=== PATIENT | male | born 1940 | race Caucasian/White ===

== ENCOUNTER → 2018-04-02 07:27 | Outpatient (CLI) | payer MEDICARE, SELFPAY ==
[2018-04-02 09:35] LABS: Alanine Aminotransferase 37 U/L (12-78); Albumin Level 3.8 gm/dL (3.4-5.0); Albumin/Globulin Ratio 1.2 (1.1-1.8); Alkaline Phosphatase 82 U/L (46-116); Anion Gap 14.7 mEq/L (5-15); Aspartate Amino Transferase 24 U/L (15-37); Bilirubin,Total 0.4 mg/dL (0.2-1.0); Blood Urea Nitrogen 16 mg/dL (7-18); Calcium 9.2 mg/dL (8.5-10.1); Carbon Dioxide 26 mmol/L (21.0-32.0); Chloride 105 mmol/L (98-107); Chol/HDL Ratio 3.5 (1-3.5); Cholesterol 140 mg/dL (140-200); Creatinine,Serum 0.76 mg/dL (0.70-1.30); Estimated Glomerular Filt Rate 99 ml/min (>60); GFR (African American) 120 ML/MIN (>60); Globulin 3.3 gm/dl (1.3-3.2); Glucose 177 mg/dL (74-106); HDL Cholesterol 40 mg/dL (27-67); LDL Cholesterol 82 mg/dL (0-130); Potassium 4.7 mmoL/L (3.5-5.1); Prostate Specific Ag Screen 3.7 ng/mL (0.0-4.0); Sodium 141 mmol/L (136-145); Total Protein,Serum 7.1 gm/dL (6.4-8.2); Triglycerides 91 mg/dL (30-200); VLDL Cholesterol 18 mg/dL (0-40)
== END ==
PROVIDERS: Visit Provider Family Medicine
DX: E11.9 Type 2 diabetes mellitus without complications (principal); I10 Essential (primary) hypertension; Z12.5 Encounter for screening for malignant neoplasm of prostate; E78.5 Hyperlipidemia, unspecified
CPT/HCPCS: 36415; 80053; 80061; 83036; G0103

== ENCOUNTER → 2018-04-10 10:59 | Outpatient (CLI) | payer MEDICARE, SELFPAY ==
--- NOTE | 2018-04-10 11:04 | US_ITS ---
US Arterial Ankle Brachial Ind INDICATION for study: Claudication, hypertension, previous smoker ORDERING PHYSICIAN: Jensen Yates MD PATIENT AGE: 78 years TECHNIQUE: Segmental pressures obtained of both right and left leg. These are compared to brachial blood pressure to yield index at each level sampled including summary CORNELIUS. The data sheets from the procedure are available in PACS FINDINGS Rest study only performed today No prior studies available for comparison. Blood pressures reported are in millimeters mercury. RIGHT LEG CORNELIUS = .7. RIGHT LEG TBI=.4 Brachial BP: 153 Thigh BP: 137 Calf BP: 138 Ankle PT: 106 Ankle DP : 115 Digit =64 LEFT LEG CORNELIUS = .2 LEFT LEG TBI= 0.2 Brachial BPD: 153 Thigh BP: 78 Calf BP: 48 Ankle PT:30 Ankle DP: 45 Digit = 30 Pulses and waveforms: Diminished pulses and waveforms IMPRESSION: 1. Low right CORNELIUS consistent with [id number] atherosclerotic change. 2. Low left CORNELIUS indicating severe atherosclerotic change on the left. 3. Low TBI as on both sides indicating small vessel disease
== END ==
PROVIDERS: Family Provider Family Medicine; PCP Family Medicine; Visit Provider Family Medicine
DX: I73.9 Peripheral vascular disease, unspecified (principal)
CPT/HCPCS: 93922

== ENCOUNTER → 2018-10-26 08:00 | Outpatient (CLI) | payer MEDICARE, SELFPAY ==
[2018-10-26 08:53] LABS: Hemoglobin A1C 8.2 % (0.0-7.0)
[2018-10-26 09:34] LABS: Alanine Aminotransferase 32 U/L (12-78); Albumin Level 3.7 gm/dL (3.4-5.0); Albumin/Globulin Ratio 1.1 (1.1-1.8); Alkaline Phosphatase 82 U/L (46-116); Anion Gap 14.5 mEq/L (5-15); Aspartate Amino Transferase 14 U/L (15-37); Bilirubin,Total 0.3 mg/dL (0.2-1.0); Blood Urea Nitrogen 13 mg/dL (7-18); Calcium 9.2 mg/dL (8.5-10.1); Carbon Dioxide 27 mmol/L (21.0-32.0); Chloride 104 mmol/L (98-107); Chol/HDL Ratio 3.1 (1-3.5); Cholesterol 142 mg/dL (140-200); Creatinine,Serum 0.82 mg/dL (0.70-1.30); Estimated Glomerular Filt Rate 91 ml/min (>60); GFR (African American) 110 ML/MIN (>60); Globulin 3.5 gm/dl (1.3-3.2); Glucose 113 mg/dL (74-106); HDL Cholesterol 46 mg/dL (27-67); LDL Cholesterol 79 mg/dL (0-130); Potassium 4.5 mmoL/L (3.5-5.1); Sodium 141 mmol/L (136-145); Total Protein,Serum 7.2 gm/dL (6.4-8.2); Triglycerides 86 mg/dL (30-200); VLDL Cholesterol 17 mg/dL (0-40)
== END ==
PROVIDERS: Visit Provider Family Medicine
DX: E78.5 Hyperlipidemia, unspecified (principal); E11.9 Type 2 diabetes mellitus without complications; I10 Essential (primary) hypertension; Z79.4 Long term (current) use of insulin; Z79.84 Long term (current) use of oral hypoglycemic drugs
CPT/HCPCS: 36415; 80053; 80061; 83036

== ENCOUNTER → 2019-03-05 07:32 | Outpatient (CLI) | payer MEDICARE, SELFPAY ==
[2019-03-05 08:44] LABS: Alanine Aminotransferase 27 U/L (12-78); Albumin Level 3.7 gm/dL (3.4-5.0); Albumin/Globulin Ratio 1.1 (1.1-1.8); Alkaline Phosphatase 85 U/L (46-116); Anion Gap 13.9 mEq/L (5-15); Aspartate Amino Transferase 19 U/L (15-37); Bilirubin,Total 0.4 mg/dL (0.2-1.0); Blood Urea Nitrogen 14 mg/dL (7-18); Calcium 9.6 mg/dL (8.5-10.1); Carbon Dioxide 29 mmol/L (21.0-32.0); Chloride 105 mmol/L (98-107); Chol/HDL Ratio 3.5 (1-3.5); Cholesterol 135 mg/dL (140-200); Creatinine,Serum 0.91 mg/dL (0.70-1.30); Estimated Glomerular Filt Rate 81 ml/min (>60); GFR (African American) 97 ML/MIN (>60); Globulin 3.3 gm/dl (1.3-3.2); Glucose 87 mg/dL (74-106); HDL Cholesterol 39 mg/dL (27-67); LDL Cholesterol 80 mg/dL (0-130); Potassium 4.9 mmoL/L (3.5-5.1); Sodium 143 mmol/L (136-145); Triglycerides 78 mg/dL (30-200); VLDL Cholesterol 16 mg/dL (0-40)
[2019-03-05 09:27] LABS: Hemoglobin A1C 8.4 % (0.0-7.0)
== END ==
PROVIDERS: Visit Provider Family Medicine
DX: E11.9 Type 2 diabetes mellitus without complications (principal); E78.5 Hyperlipidemia, unspecified; Z79.84 Long term (current) use of oral hypoglycemic drugs; Z79.4 Long term (current) use of insulin; I10 Essential (primary) hypertension
CPT/HCPCS: 36415; 80053; 80061; 83036

== ENCOUNTER → 2019-09-12 07:16 | Outpatient (CLI) | payer MEDICARE, SELFPAY ==
[2019-09-12 08:02] LABS: Hemoglobin A1C 7.6 % (0.0-7.0)
[2019-09-12 09:49] LABS: Alanine Aminotransferase 25 U/L (12-78); Albumin Level 3.5 gm/dL (3.4-5.0); Albumin/Globulin Ratio 1.1 (1.1-1.8); Alkaline Phosphatase 83 U/L (46-116); Anion Gap 13.3 mEq/L (5-15); Aspartate Amino Transferase 16 U/L (15-37); Bilirubin,Total 0.2 mg/dL (0.2-1.0); Blood Urea Nitrogen 17 mg/dL (7-18); Carbon Dioxide 30 mmol/L (21.0-32.0); Chloride 103 mmol/L (98-107); Chol/HDL Ratio 3.2 (1-3.5); Cholesterol 130 mg/dL (140-200); Creatinine,Serum 0.85 mg/dL (0.70-1.30); Estimated Glomerular Filt Rate 87 ml/min (>60); GFR (African American) 105 ML/MIN (>60); Globulin 3.1 gm/dl (1.3-3.2); Glucose 112 mg/dL (74-106); HDL Cholesterol 41 mg/dL (27-67); LDL Cholesterol 71 mg/dL (0-130); Potassium 4.3 mmoL/L (3.5-5.1); Sodium 142 mmol/L (136-145); Total Protein,Serum 6.6 gm/dL (6.4-8.2); Triglycerides 92 mg/dL (30-200); VLDL Cholesterol 18 mg/dL (0-40)
[2019-09-14 07:21] LABS: Creatinine, Urine 81.8 mg/dL (Not Estab.)
[2019-09-14 20:03] LABS: Microalbumin, Urine 42.8 ug/mL (Not Estab.)
== END ==
PROVIDERS: Visit Provider Family Medicine
DX: E11.9 Type 2 diabetes mellitus without complications (principal); E78.5 Hyperlipidemia, unspecified; I10 Essential (primary) hypertension; Z79.4 Long term (current) use of insulin; Z79.84 Long term (current) use of oral hypoglycemic drugs
CPT/HCPCS: 36415; 80053; 80061; 82043; 82570; 83036

== ENCOUNTER → 2020-03-13 06:59 | Outpatient (CLI) | payer MEDICARE, SELFPAY ==
[2020-03-13 10:49] LABS: Hemoglobin A1C 6.9 % (4.0-6.0)
[2020-03-13 12:18] LABS: Chloride 102 mmol/L (98-107); Potassium 4.8 mmoL/L (3.5-5.1); Sodium 139 mmol/L (136-145)
[2020-03-13 12:20] LABS: Alanine Aminotransferase 17 U/L (12-78); Alkaline Phosphatase 76 U/L (38-126); Aspartate Amino Transferase 26 U/L (17-59); Bilirubin,Total 0.2 mg/dl (0.2-1.3); Blood Urea Nitrogen 20 mg/dl (9-20); Estimated Glomerular Filt Rate 93 ml/min (>60); GFR (African American) 113 ML/MIN (>60)
[2020-03-13 12:21] LABS: Albumin/Globulin Ratio 1.6 (1.1-1.8); Anion Gap 13.8 mEq/L (5-15); Carbon Dioxide 28 mmol/L (22.0-30.0); Chol/HDL Ratio 3.3 (1-3.5); Cholesterol 112 mg/dl (140-200); Globulin 2.5 g/dL (1.3-3.2); HDL Cholesterol 34 mg/dl (40-60); Total Protein,Serum 6.5 g/dl (6.3-8.2); Triglycerides 92 mg/dl (30-150); VLDL Cholesterol 18 mg/dL (0-40)
[2020-03-13 12:27] LABS: Calcium 9.4 mg/dl (8.4-10.2); Glucose 102 mg/dl (74-100)
[2020-03-13 12:32] LABS: Direct LDL Cholesterol 77.59 mg/dL (100-129)
== END ==
PROVIDERS: Visit Provider Family Medicine
DX: E78.5 Hyperlipidemia, unspecified (principal); I10 Essential (primary) hypertension; E11.9 Type 2 diabetes mellitus without complications; Z79.84 Long term (current) use of oral hypoglycemic drugs
CPT/HCPCS: 36415; 80053; 80061; 83036

== ENCOUNTER 2020-06-08 12:02 | Inpatient (IN) | payer MEDICARE, SELFPAY ==
[2020-06-08] VITALS (12 sets, daily range): BP systolic 105–150; BP diastolic 57–81; PULSE 78–134; RESP 18–26; TEMP 36–36.6; O2SAT 96–99; BMI 31.8
--- NOTE | 2020-06-08 12:14 | ECG_ITS ---
APPROVED REPORT Exam: Resting ECG HR:115 bpm ECG Measurements Heart Rate 115 AXES QRSd 100 QRS 77 QT 310 T -72 QTc 428 <Conclusion> Atrial Fibrillation with PVC'S vs Aberrant Conduction ST-T Wave Changes-Consider Ischemia and/or Digitalis effect Abnormal ECG Electronically signed by : Raymond Fuentes, 06/08/2020 15:10:15
--- NOTE | 2020-06-08 12:21 | XR_ITS ---
PROCEDURE: XR CHEST PORTABLE CLINICAL HISTORY: sob Shortness of breath chest pain COMPARISON: No exams were available for comparison FINDINGS: There is mild cardiomegaly without failure. There has been a prior CABG. There is opacification in the left lung base consistent with pneumonia with small left effusion. Trace effusion also noted on right. No acute bony abnormalities. IMPRESSION: Left lower lobe infiltrate. Small bilateral effusions Dictated by: Justin Weldon MD 06/08/2020 14:05 Electronically signed by Justin Welodn MD in [place] 06/08/2020 14:05
--- NOTE | 2020-06-08 12:40 | HMH.EDGENADL ---
ED Disposition Clinical Impression: New onset of congestive heart failure Left lower lobe pneumonia Qualifiers: Pneumonia type: due to unspecified organism Qualified Code(s): J18.9 - Pneumonia, unspecified organism Disposition: Admitted As Inpatient Condition on Discharge: Good Referrals: Jensen Yates MD [Primary Care Provider] - Time of Disposition: 16:46 - Critical Care Critical Care Time: No Attestation: On 06/08/20, the high probability of a clinically significant, sudden or life threatening deterioration of the following system(s) required my full and direct attention, intervention and personal management. The time I documented below is in addition to time spent performing reported procedures but includes the following listed in this critical care notation. Medical Decision Making - Medical Records MR Comment: 80-year-old male with extensive cardiac history including bypass and stents presents the emergency department with gradually increasing shortness of breath and bilateral lower extremity edema over the last few weeks. He arrives to the ED hemodynamically stable, with reassuring vital signs, and looks well on exam. He is tachycardic during my evaluation to 110. He denies any pain including chest or back pain at this time. ACS was considered as well as pneumonia, however his symptoms do not fit this picture. No clinical concern for pulmonary embolus at this time. No history of COPD or heart failure, however with his bilateral lower extremity edema and slowly increasing shortness of breath, heart failure is considered. Will get labs including troponin and BNP, chest x-ray, EKG and reassess. He is nontoxic, not septic at this time. Reassessment, patient remained stable and oxygen saturation 98% on room air. His history and physical along with enlarged cardiac silhouette and BNP of over 14,000 support diagnosis of new onset heart failure. He also has a left lower lobe pneumonia and a leukocytosis of 16, he was given ceftriaxone and azithromycin. No Concern for hospital-acquired pneumonia. His first troponin was elevated, other than T wave inversions, EKG was unremarkable. He was having no chest pain. Second troponin was lower than first and no dynamic changes on repeat EKGs. Do not believe this is ACS. However, he needs further work-up including echo, treatment for heart failure and pneumonia. Spoke to his PCP and he will be admitted for further treatment. Stable admission. - Gallo Inquiry Pt receiving controlled substance: No Vital Signs: 06/08/20 12:04 06/08/20 13:14 06/08/20 13:36 Temperature 97.8 F Temperature Source Oral Pulse Rate [Left Radial] 130 H 110 H 105 H Respiratory Rate 26 H Blood Pressure [Right Arm] 150/77 H 109/67 L 108/60 L Blood Pressure Mean [Right Arm] 101 81 76 Blood Pressure Source [Right Arm] Automatic Cuff Automatic Cuff Blood Pressure Position [Right Arm] Sitting Sitting Sitting 02 Sat by Pulse Oximetry 96 97 98 Oxygen Delivery Method Room Air Room Air Room Air 06/08/20 14:41 06/08/20 15:30 06/08/20 16:08 Temperature Temperature Source Pulse Rate [Left Radial] 88 97 H 98 H Respiratory Rate Blood Pressure [Right Arm] 129/81 105/72 L 120/74 Blood Pressure Mean [Right Arm] 97 83 89 Blood Pressure Source [Right Arm] Automatic Cuff Automatic Cuff Automatic Cuff Blood Pressure Position [Right Arm] Sitting Sitting Sitting 02 Sat by Pulse Oximetry 97 98 99 Oxygen Delivery Method Room Air Room Air Room Air - Lab Data Lab Results 06/08/20 12:24: WBC 16.0 H, RBC 4.28 L, Hgb 11.5 L, Hct 37.8 L, MCV 88.4, MCH 27.0, MCHC 30.5 L, RDW 15.4, Plt Count 517 H, MPV 8.0, Neut % (Auto) 85.1 H, Lymph % (Auto) 10.1, Wilcox % (Auto) 3.6, Eos % (Auto) 0.8, Baso % (Auto) 0.4, Neut # (Auto) 13.6 H, Lymph # (Auto) 1.6, Wilcox # (Auto) 0.6, Eos # (Auto) 0.1, Baso # (Auto) 0.1, Total Counted 100, Neutrophils % (Manual) 81 H, Band Neutrophils % 5.0, Lymphocytes % (Manual) 1
[2020-06-08 12:43] LABS: Basophils # 0.1 K/mm3 (0-0.2); Basophils % 0.4 % (0.1-2.0); Eosinophils # 0.1 K/mm3 (0.0-0.4); Eosinophils % 0.8 % (0.1-12.0); Hematocrit 37.8 % (42.0-52.0); Hemoglobin 11.5 g/dL (14.1-18.0); Lymphocytes # 1.6 K/mm3 (0.7-4.5); Lymphocytes % 10.1 % (10-50); Mean Corpuscular HGB Conc 30.5 g/dL (31.8-35.4); Mean Corpuscular Volume 88.4 fl (80-94); Monocytes # 0.6 K/mm3 (0.1-1.0); Monocytes % 3.6 % (1.7-9.3); Neutrophils # 13.6 K/mm3 (1.8-7.8); Neutrophils % 85.1 % (37.0-80.0); Platelet Count 517 K/mm3 (142-424); Red Blood Count 4.28 M/mm3 (4.60-6.20); Red Cell Distribution Width 15.4 % (11.5-17.5)
[2020-06-08 12:45] LABS: MANUAL DIFFERENTIAL MANUAL DIFFERENTIAL (MANUAL DIFF)
[2020-06-08 12:49] LABS: Chloride 100 mmol/L (98-107); Sodium 135 mmol/L (136-145)
[2020-06-08 12:51] LABS: Alanine Aminotransferase 61 U/L (12-78); Aspartate Amino Transferase 41 U/L (17-59); Bilirubin,Unconjugated 0.3 mg/dL (0.0-1.1); Blood Urea Nitrogen 29 mg/dl (9-20); Creatinine Clearance Estimated 84 mL/min (50-200); Estimated Glomerular Filt Rate 72 ml/min (>60); GFR (African American) 87 ML/MIN (>60)
[2020-06-08 12:52] LABS: Albumin Level 3.9 g/dl (3.5-5.0); Alkaline Phosphatase 150 U/L (38-126); Bilirubin,Direct 0.2 mg/dl (0.0-0.4); Bilirubin,Indirect 0.3 mg/dL (0.0-0.9); Bilirubin,Total 0.5 mg/dl (0.2-1.3); Carbon Dioxide 24 mmol/L (22.0-30.0); Total Protein,Serum 7.1 g/dl (6.3-8.2)
[2020-06-08 12:53] LABS: Prothrombin Time 13.2 seconds (9.4-11.8)
[2020-06-08 12:58] LABS: Calcium 9.3 mg/dl (8.4-10.2)
[2020-06-08 13:01] LABS: Hypochromasia 2+; Lymphocytes % 10 % (10-50); Monocytes % 4 % (2-9); NT Pro Brain Natriuretic Pep. 14300 pg/mL (0-450); Neutrophils % 81 % (42-76); Platelet Estimate Normal; Total Cells Counted 100
[2020-06-08 13:04] LABS: Glucose 138 mg/dl (74-100)
[2020-06-08 13:05] LABS: RBC Morphology Normal
[2020-06-08 13:06] LABS: Troponin I 1.88 ng/ml (0.00-0.034)
--- NOTE | 2020-06-08 13:15 | PC.NURSE ---
rad at for portable cxr
[2020-06-08 13:48] LABS: POC Glucose,Bedside 112 (70-110)
--- NOTE | 2020-06-08 13:55 | PC.NURSE ---
pt with edema noted feet ankles legs up to abd
[2020-06-08 16:14] LABS: Troponin I 1.58 ng/ml (0.00-0.034)
--- NOTE | 2020-06-08 16:30 | PC.NURSE ---
Calling Dr Yates at this time.
--- NOTE | 2020-06-08 17:53 | PC.NURSE ---
Duy knows of consult
--- NOTE | 2020-06-08 18:25 | HMH.ACPN2 ---
Internal Medicine - PN: Subj *Date: 06/08/20 *Time: 18:25 Interval history: BRIEF ADMIT NOTE: Mr. Trevino is an 80-year-old white male with a history of hypertension, diabetes mellitus mellitus, hyperlipidemia, and peripheral vascular disease who presented to the emergency room today with a 2 to 3-week history of progressively increasing shortness of breath, paroxysmal nocturnal dyspnea, increased swelling in his feet and legs, weight gain and dry cough with no fever. He had a particularly bad night last night where he was unable to sleep and had some episodes of confusion. No complaints of chest pain. I spoke to him this morning via telehealth encounter and based on his symptoms advised he present to the emergency room. He was evaluated in the ER and found to have a left lower lobe infiltrate with a white count of 16,000. He also had mild cardiomegaly on his chest x-ray but no overt heart failure however his BNP was 14,000. His initial troponin was elevated at 1.8 but follow-up decreased to 1.5. He has no history of congestive heart failure. Exam Vital signs and Labs for Last 24 Hours: Temp Pulse Resp BP Pulse Ox 98 F 78 18 112/74 98 06/08/20 17:29 06/08/20 17:29 06/08/20 17:29 06/08/20 17:29 06/08/20 16:56 Laboratory Results - last 24 hr 06/08/20 12:24: WBC 16.0 H, RBC 4.28 L, Hgb 11.5 L, Hct 37.8 L, MCV 88.4, MCH 27.0, MCHC 30.5 L, RDW 15.4, Plt Count 517 H, MPV 8.0, Neut % (Auto) 85.1 H, Lymph % (Auto) 10.1, Wilkin % (Auto) 3.6, Eos % (Auto) 0.8, Baso % (Auto) 0.4, Neut # (Auto) 13.6 H, Lymph # (Auto) 1.6, Wilkin # (Auto) 0.6, Eos # (Auto) 0.1, Baso # (Auto) 0.1, Total Counted 100, Neutrophils % (Manual) 81 H, Band Neutrophils % 5.0, Lymphocytes % (Manual) 10, Monocytes % (Manual) 4, Platelet Estimate Normal, RBC Morphology Normal, Hypochromasia 2+ 06/08/20 12:24: Sodium 135 L, Potassium 5.0, Chloride 100, Carbon Dioxide 24, Anion Gap 16.0 H, BUN 29 H, Creatinine 1.00, Estimated Creat Clear 84, Estimated GFR 72, Est GFR ( Amer) 87, Glucose 138 H, Calcium 9.3, Total Bilirubin 0.5, Direct Bilirubin 0.2, Conjugated Bilirubin 0.0, Indirect Bilirubin 0.3, Unconjugated Bilirubin 0.3, AST 41, ALT 61, Alkaline Phosphatase 150 H, Troponin I 1.88 H, Total Protein 7.1, Albumin 3.9 06/08/20 12:24: NT-Pro-B Natriuret Pep 56786 H 06/08/20 12:24: PT 13.2 H, INR 1.30 H 06/08/20 12:24: Lactate 2.0 06/08/20 13:40: POC Glucose 112 H 06/08/20 15:06: Troponin I 1.58 H I & O for Last 24 hours: Intake & Output 06/06/20 06/07/20 06/08/20 06/09/20 11:59 11:59 11:59 11:59 Weight 221 lb 9 oz Narrative: At the time of my exam after arrival to the floor, he is feeling a little better. He is less short of breath. He is alert and oriented. Color is good. Chest reveals diminished breath sounds in the left base. No wheezes. Heart is regular with no ectopy. Abdomen is soft and nondistended with no tenderness. Extremities show 2+ pretibial edema to the mid calves bilaterally. Assessment and Plan (1) Left lower lobe pneumonia Current visit: Yes Status: Acute Qualifiers: Pneumonia type: due to unspecified organism Qualified Code(s): J18.9 - Pneumonia, unspecified organism Category: Medical Code(s): J18.9 - Pneumonia, unspecified organism (2) New onset of congestive heart failure Current visit: Yes Status: Acute Category: Medical Code(s): I50.9 - Heart failure, unspecified (3) HTN (hypertension) Current visit: No Status: Chronic Qualifiers: Hypertension type: essential hypertension Qualified Code(s): I10 - Essential (primary) hypertension Category: Medical Code(s): I10 - Essential (primary) hypertension (4) PAD (peripheral artery disease) Current visit: No Status: Chronic Category: Medical Code(s): I73.9 - Peripheral vascular disease, unspecified (5) Type 2 diabetes mellitus Current visit: Yes Status: Acute Category: Medical Code(s): E11.9 - Type 2 diabetes
--- NOTE | 2020-06-08 19:21 | PC.NURSE ---
report given to judy
[2020-06-08 21:25] LABS: POC Glucose,Bedside 186 (70-110)
[2020-06-09] VITALS (11 sets, daily range): BP systolic 97–136; BP diastolic 62–73; PULSE 66–140; RESP 17–20; TEMP 36.4–36.8; O2SAT 96–97; BMI 31.4
--- NOTE | 2020-06-09 00:24 | PC.NURSE ---
He reports a non-productive cough. He is aware of the need for a sputum specimen. His is at the bedside. He continues on RA. He turns and repositions himself. Ambulates independently. He requests to take a bath tomorrow day and refused one tonight.
--- NOTE | 2020-06-09 06:12 | PC.NURSE ---
Confusion noted. He is stating he would shot this grant writer and asked wouldn't you shot yourself.
--- NOTE | 2020-06-09 06:46 | PC.NURSE ---
Contacted lab about results on stat glucose and lab stated it had not been drawn yet. Pt's stated lab came into the room and he told her that his last name was Johnnie and that lab had left the room. Echo is being done at this time. POC glucose checked and was 69.
[2020-06-09 06:57] LABS: POC Glucose,Bedside 69 (70-110)
[2020-06-09 07:22] LABS: Chloride 103 mmol/L (98-107); Potassium 4.5 mmoL/L (3.5-5.1); Sodium 138 mmol/L (136-145)
[2020-06-09 07:25] LABS: Anion Gap 14.5 mEq/L (5-15); Blood Urea Nitrogen 31 mg/dl (9-20); Calcium 8.6 mg/dl (8.4-10.2); Carbon Dioxide 25 mmol/L (22.0-30.0); Creatine Kinase 168 U/L (55-170); Creatinine Clearance Estimated 83 mL/min (50-200); Estimated Glomerular Filt Rate 81 ml/min (>60); GFR (African American) 98 ML/MIN (>60); Glucose 74 mg/dl (74-100)
[2020-06-09 07:35] LABS: CKMB Relative Index 2.1 U/L (0-4.0); Creatine Kinase MB 3.5 ng/ml (0.0-2.03)
[2020-06-09 07:40] LABS: Basophils % 0.4 % (0.1-2.0); Eosinophils # 0.1 K/mm3 (0.0-0.4); Hematocrit 35.4 % (42.0-52.0); Hemoglobin 11.2 g/dL (14.1-18.0); Lymphocytes # 1.3 K/mm3 (0.7-4.5); Mean Corpuscular HGB Conc 31.6 g/dL (31.8-35.4); Mean Corpuscular Volume 85.3 fl (80-94); Mean Platelet Volume 7.4 fl (7.4-10.4); Monocytes # 0.8 K/mm3 (0.1-1.0); Monocytes % 6.8 % (1.7-9.3); Neutrophils # 9.6 K/mm3 (1.8-7.8); Neutrophils % 80.8 % (37.0-80.0); Platelet Count 396 K/mm3 (142-424); Red Blood Count 4.15 M/mm3 (4.60-6.20); Red Cell Distribution Width 15.5 % (11.5-17.5); White Blood Count 11.9 K/mm3 (4.8-10.8)
[2020-06-09 07:47] LABS: Troponin I 1.64 ng/ml (0.00-0.034)
--- NOTE | 2020-06-09 07:54 | HMH.PHAVTE ---
[facility] Pharmacy VTE Monitoring - Patient Demographics Admission date: 06/08/20 Report Date: 06/09/20 Time: 07:54 Allergies/Adverse Reactions: Patient Allergies pregabalin [From Lyrica] Allergy (Mild, Verified 06/05/18 13:37) shellfish derived Allergy (Mild, Verified 06/05/18 13:37) Height: 1.78 m Weight: 99.654 kg Patient Problems: Current Active Problems New onset of congestive heart failure (Acute) Left lower lobe pneumonia (Acute) Type 2 diabetes mellitus (Acute) Hyperlipidemia (Acute) - VTE Risk Labs: VTE Related Lab Results Hgb 11.2 g/dL (14.1-18.0) L 06/09/20 07:10 Hct 35.4 % (42.0-52.0) L 06/09/20 07:10 Plt Count 396 K/mm3 (142-424) 06/09/20 07:10 PT 13.2 seconds (9.4-11.8) H 06/08/20 12:24 INR 1.30 (0.9-1.1) H 06/08/20 12:24 BUN 31 mg/dl (9-20) H 06/09/20 07:10 Creatinine 0.90 mg/dl (0.66-1.25) 06/09/20 07:10 Estimated Creat Clear 83 mL/min (50-200) 06/09/20 07:10 VTE Score: 2 Clinical Trial Participant: No - Prophylaxis VTE Prophylaxis Ordered?: Yes Types of VTE Prophylaxis: TEDS Knee High
--- NOTE | 2020-06-09 08:33 | HMH.CNCARD ---
History of Present Illness Consult date: 06/09/20 Requesting physician: Jesnen Yates Consult reason: congestive heart failure Chief complaint: SOA Additional Medical History:: 1. CAD with remote multiple MT's, 1993 A. MT with coronary stenting, 1993 B. 2 vessel CABG, approximately 1993, [place], [place] after re-occlusion of coronary stented artery 2. DM, insulin requiring, treated for 25 yrs 3. Remote tobacco use, stopped 1993, 20-30 pack yr history 4. Hyperlipidemia 5. Hypertension 6. Suspected cancer located on the back right scapular area 7. History of GERD 8. PAD A. History of BMS to left popliteal artery, 03/2018 due to limb threatening ischemia History of present illness: 80-year-old white male with history of bypass surgery in 1993 presented to the emergency department at the insistence of his primary care physician for evaluation of increasing shortness of breath over the last 3 weeks along with lower extremity edema and increasing abdominal size. Patient denies any chest pain but states he has been unable to sleep or rest due to the symptoms. Initial troponin noted to be elevated at 1.88 with a BNP of greater than 14,000 and patient was admitted for congestive heart failure with non-ST elevation MT. Patient was started on IV diuretics and does relate some increased urination overnight with a 2 pound weight loss. Patient did not save a lot of his urine so adequate I and O's not recorded. He states he does feel a little bit better but is still unable to lie flat without shortness of breath and a feeling of uneasiness. He denies any chest pain, pressure or tightness. EKG reveals mild tachycardia with a rhythm that appears to be atrial flutter with 3-1 conduction vs a. fibrillation. Preliminary echo this AM shows LVEF of 20-25%. [facility] History Medical History: Reports:: Atrial Fibrillation, Congestive Heart Failure, Coronary Artery Disease, Diabetes Mellitus Type 2, Gastroesophageal Reflux Disease(GERD), Hyperlipidemia, Hypertension, Peripheral Artery Disease Denies:: Cancer, Diabetes Mellitus Type 1, MRSA *Have you ever received a pneumonia vaccine?: Yes *Have you received a flu vaccine this season?: Yes Other Medical History: Reports: Arthritis Other Surgeries: Yes: CABG (26 years ago), Colonoscopy Amputation: No Fractures: No - *Social History Last grade of school completed: 5th or 6th Smoking Status: Former smoker Tobacco Type: cigarettes Alcohol Intake: never Alcohol Intake Frequency:: other Substance Use Type: denies use *Occupational Status:: retired Housing: house Household Members: spouse *Travel in the last 8 weeks: None Family Hx:: Coronary Artery Disease, Heart Attack Meds Home Medications Medication Instructions Recorded Confirmed Type aspirin 81 mg tablet,delayed 81 mg PO DAILY tab 04/24/18 06/08/20 History release atorvastatin 40 mg tablet 40 mg PO DAILY tab 04/24/18 06/08/20 History ferrous sulfate 325 mg (65 mg 325 mg PO DAILY tab 04/24/18 06/08/20 History iron) tablet insulin glargine 100 unit/mL (3 32 unit SUB-Q BID ml 04/24/18 06/08/20 History mL) subcutaneous pen lisinopril 20 mg tablet 20 mg PO DAILY tab 04/24/18 06/08/20 History metformin 1,000 mg tablet 1,000 mg PO BID 04/24/18 06/08/20 History loratadine 10 mg tablet 10 mg PO DAILY tab 06/05/18 06/08/20 History Clopidogrel Bisulfate [Plavix 75mg 75 mg PO DAILY 06/08/20 06/08/20 History Tab] Glimepiride 2 mg PO DAILY 06/09/20 06/09/20 History Allergies Allergy/AdvReac Type Severity Reaction Status Date / Time pregabalin [From Lyrica] Allergy Mild Verified 06/05/18 13:37 shellfish derived Allergy Mild Verified 06/05/18 13:37 Review of Systems - Review of Systems Review of systems:: pertinent systems reviewed and negative unless documented below - *Cardiovascular Reports shortness of breath, Reports shortness of breath when lying down, Reports foot swelling, Denies chest pain - *Res
--- NOTE | 2020-06-09 09:12 | HMH.HP ---
*Admission Date: 06/08/20 <Pauline Harmon 06/09/20 09:15> *Chief complaint: Shortness of breath and bilateral lower extremity edema <06/09/20 09:15> *History of present illness: Mr. Cassidy is an 80yo gentleman with a history of ASCVD with multiple ME's resulting in CABG and stenting, HLP, T2DM, PAD, , HTN, GERD, and chronic back pain. He reports a 2-3 week history of progressive shortness of breath along with lower extremity edema, increasing abdominal size, and dry cough without fever. He denied any chest pain. He had not been resting well at night due to dyspnea when laying flat. After having a particularly bad night with lack of sleep and some episodes of confusion, he was evaluated via telehealth encounter by Dr. Yates yesterday morning and advised to present to the emergency room for based on his symptoms. Upon arrival to the ED, he was found to have a left lower lobe infiltrate with elevated WBC. He also had mild cardiomegaly on CXR without overt heart failure although his BNP was elevated at 14,000. His initial troponin was also elevated. He was admitted for congestive heart failure and cardiology was consulted. This morning he has had some diuresis but continues to be short of breath when lying flat. <Faustino06/09/20 09:44> [facility] History I have reviewed the patient's past medical history: Yes <06/09/20 09:44> Medical History: Reports:: Atrial Fibrillation, Congestive Heart Failure, Coronary Artery Disease, Diabetes Mellitus Type 2, Gastroesophageal Reflux Disease(GERD), Hyperlipidemia, Hypertension, Myocardial Infarction, Peripheral Artery Disease Denies:: Cancer, Diabetes Mellitus Type 1, MRSA <06/09/20 09:44> *Have you ever received a pneumonia vaccine?: Yes <06/09/20 09:15> *Have you received a flu vaccine this season?: Yes <06/09/20 09:15> Other Medical History: Reports: Arthritis <06/09/20 09:15> Laterality Cases: Bilateral: Cataract <06/09/20 09:44> Other Surgeries: Yes: CABG (26 years ago), Colonoscopy, Other (left leg stent placed by Dr. Joy - 2017) <Pauline Harmon 06/09/20 09:44> Amputation: No <Faustino06/09/20 09:15> Fractures: No <Faustino06/09/20 09:15> - *Social History Last grade of school completed: 5th or 6th <Ronnie Harmon06/09/20 09:15> Smoking Status: Former smoker <Faustino06/09/20 09:15> Tobacco Type: cigarettes <Ronnie Harmon06/09/20 09:15> Alcohol Intake: never <Ronnie Harmon06/09/20 09:15> Alcohol Intake Frequency:: other <Faustino06/09/20 09:15> Substance Use Type: denies use <Faustino,06/09/20 09:15> *Occupational Status:: retired <Faustino06/09/20 09:15> Housing: house <Faustino06/09/20 09:15> Household Members: spouse <Faustino06/09/20 09:15> *Travel in the last 8 weeks: None <Ronnie Harmon06/09/20 09:15> Family Hx:: Cancer, Coronary Artery Disease, Diabetes, Heart Attack <Ronnie Harmon06/09/20 09:44> Review of Systems - Constitutional Reports fatigue, Reports weight gain, Denies fever(s) <Ronnie Harmon06/09/20 09:44> - *Cardiovascular Reports shortness of breath, Reports shortness of breath with activity, Reports generalized swelling, Reports leg swelling, Reports shortness of breath when lying down, Reports shortness of breath causing sudden awakening, Denies chest pain, Denies chest pain at rest, Denies chest pain with activity <Ronnie Harmon06/09/20 09:44> - *Respiratory Reports cough, Reports shortness of breath, Reports shortness of breath with activity <Ronnie Harmon06/09/20 09:44> - *Gastrointestinal Reports bloating, Denies abdominal pain <Ronnie Harmon06/09/20 09:44> - *Genitourinary Denies difficulty urinating <Pauline Harmon 06/09/20 09:44> - Integumentary/Breasts Reports lesions <Pauline Harmon 06/09/20 09:44> Comments: right scapular non-healing ulcer present for a while ; more recent eruption of mid-carol
--- NOTE | 2020-06-09 09:20 | HMH.PHAINT ---
HOME MEDICATION RECONCILIATION COMPLETED USING LIST FROM PHARMACY AND HOME MEDS PROVIDED BY PATIENT.
[2020-06-09 11:59] LABS: POC Glucose,Bedside 42 (70-110)
[2020-06-09 11:59] LABS: POC Glucose,Bedside < 40 (70-110)
--- NOTE | 2020-06-09 15:18 | ECG_ITS ---
APPROVED REPORT Exam: Resting ECG HR:106 bpm ECG Measurements Heart Rate 106 AXES QRSd 94 QRS 64 QT 330 T -78 QTc 438 <Conclusion> Atrial fibrillation Low voltage QRS T wave abnormality, consider inferior/lateral ischemia Abnormal ECG Electronically signed by : Raymond Fuentes, 06/09/2020 15:37:38
--- NOTE | 2020-06-09 18:14 | CA_ITS ---
APPROVED REPORT EXAM: Comprehensive 2D, Doppler, and color-flow Echocardiogram Registration Officer: Mercy Lowe CRT Ht: 5 ft 10 in Wt: 221lbs BSA: 2.18 BP: 112/74 mmHg Indications: Chest Pain, Shortness of Breath, Diabetes, Peripheral Edema, Hyperlipidemia, Hypertension/HDD, PVD, CABG, Stents 2D Dimensions LVOT 1.71 cm (M/F) 1.5-2.5 M-Mode Dimensions RVDd 3.60 cm (0.9-2.6) LVDd 6.82 cm (3.5-5.7) LVDs 5.99 cm (3.5-5.7) IVSd 1.17 cm (0.6-1.1) PWd 1.14 cm (0.6-1.1) EF (Teich) 25.50% FS 12.20% EDV (Teich) 240.80 mL ESV (Teich) 179.30 mL Left Ventricle Left atrium is moderately enlarged, left ventricle is mildly dilated, mild concentric left ventricular hypertrophy, severe reduced left ventricular systolic function, visually estimated ejection fraction approximately 2025%, there is marked hypokinesis involving mid to distal septum, anterior anterior apical wall, there is no left ventricular thrombus seen, Definity contrast was utilized to delineate the endocardial surfaces. Diastolic parameters are inconclusive. Doppler evidence of low cardiac output state as well as left ventricular end-diastolic pressure seen. Right Ventricle Right atrium and right ventricle are mildly enlarged with normal contractility. Aortic Valve Aortic valve is thickened and calcified leaflet chordae display good mobility, there is no aortic stenosis, there is mild aortic insufficiency. Mitral Valve Mitral valve leaflets are minimally thickened, there is no mitral stenosis, there is moderate mitral regurgitation. Tricuspid Valve Tricuspid valve is grossly normal, there is moderate tricuspid regurgitation, calculated right ventricular systolic pressure 60 mmHg. Pulmonic Valve Pulmonic valve is poorly visualized. Great Vessels Aortic root is normal size. Pericardium No significant pericardial effusion noted. Conclusion 1. Biatrial alignment, dilated left ventricle, severe reduced left ventricular systolic function, visually estimated ejection fraction 20-25% as described above, there is no left ventricular thrombus seen. Doppler evidence of raise left ventricular end-diastolic pressure endocardial outputs state seen. 2. Moderate mitral and tricuspid regurgitation, calculated right ventricular systolic pressure 60 mmHg. 3. No significant pericardial effusion noted. Electronically signed by : Fede Nicole, 06/09/2020 19:21:45
[2020-06-09 20:32] LABS: POC Glucose,Bedside 90 (70-110)
[2020-06-10] VITALS (23 sets, daily range): BP systolic 91–142; BP diastolic 59–77; PULSE 66–137; RESP 16–24; TEMP 36.3–36.8; O2SAT 93–100; BMI 31.4
--- NOTE | 2020-06-10 | IR_ITS ---
APPROVED REPORT Patient Location: Inpatient Ground Mixer: MARY Hutson RT (R) PROCEDURES Left heart catheterization Left ventriculogram Selective coronary angiogram Selective engagement of the saphenous vein graft to the right coronary artery Selective engagement of the left internal mammary artery to the LAD INDICATION Acute non-ST elevation myocardial infarction, Coronary artery disease with history of coronary bypass surgery, Left ventricular dysfunction ejection fraction 25% Informed consent was obtained prior to the procedure. COMPLICATIONS none Estimated Blood Loss: less than 10 mls TECHNIQUE One percent lidocaine used to anesthetize the right groin. The right femoral artery was accessed via the Seldinger technique and a 5 Turkish sheath was placed in the right femoral artery. A JL 4, JR4 catheter were used to perform left heart catheterization, left ventriculogram selective coronary angiography as well as selective engagement of the 1 vein graft and the left internal mammary artery. At the end of the procedure the patient was transferred to the postop holding area in stable condition for sheath removal. ANGIOGRAPHIC RESULTS The left main artery Has a distal 20% stenosis The left anterior descending artery Ostially occluded The circumflex artery Nondominant and has an ostial 30% stenosis with a proximal 30 to 40% stenosis and a 2 mm first obtuse marginal artery The right coronary artery Dominant proximally occluded The JERONIMO ventriculogram reveals Severely dilated ventricle with global hypokinesis estimated ejection fraction less than 20% The left ventricular end-diastolic pressure 40 mmHg The left internal mammary artery is widely patent to the LAD The saphenous vein graft is widely patent to the dominant right coronary IMPRESSION Coronary artery disease as described above with adequate surgical revascularization Severe left ventricular dilatation with severe left ventricular dysfunction accompanied by severely elevated LVEDP PLAN 1. Patient requires aggressive diuresis followed by institution of beta blockers and Entresto 2. Patient should be offered a LifeVest prior to discharge home 3. Standard therapy for ischemic heart disease 4. Standard therapy for systolic heart failure 5. In 90 days patient should be reevaluated for AICD Electronically signed by : Dre Joy, 06/10/2020 13:17:01
--- NOTE | 2020-06-10 06:24 | PC.NURSE ---
0558- FSBS: 52 0600- PT. REFUSED ORANGE JUICE, STATES: IT GIVES ME HEARTBURN 0607- PT. EATS PEANUT BUTTER CRACKERS AND CHOCOLATE MILK 0616- FSBS: 56 0620- PT. REFUSES SNACKS. BOTH PT. AND REPORT THAT PT'S FSBS IS USUALLY IN THE 50'S EVERY MORNING. THEY HAVE NOTICED THIS FOR THE PAST SIX MONTHS. PT. IS A&OX4 AND IS ABLE TO CARRY NORMAL CONVERSATION AND ACTIVITY. THIS RN ENCOURAGED PT. TO KEEP EATING AND LEFT PEANUT BUTTER CRACKERS AT BEDSIDE PT. STATED THAT HE WOULD IN A LITTLE BIT . 0645- FSBS: 68 0650- MD SALVADOR NOTIFIED OF ABOVE AND MADE AWARE THAT PT. HAS LEVEMIR, GLIMIPERIDE, AND METFORMIN ORDERED THIS MORNING. ORDERED TO HOLD THESE DOSES UNTIL CARDIOLOGY CONFIRMS POSSIBLE HEART CATH TODAY.
[2020-06-10 06:29] LABS: POC Glucose,Bedside 56 (70-110)
[2020-06-10 06:52] LABS: POC Glucose,Bedside 68 (70-110)
[2020-06-10 07:30] LABS: Basophils # 0.1 K/mm3 (0-0.2); Basophils % 0.8 % (0.1-2.0); Eosinophils # 0.3 K/mm3 (0.0-0.4); Eosinophils % 2.5 % (0.1-12.0); Hemoglobin 11.2 g/dL (14.1-18.0); Lymphocytes % 15.9 % (10-50); Mean Corpuscular HGB Conc 31.1 g/dL (31.8-35.4); Mean Corpuscular Hemoglobin 26.8 pg (27.0-31.2); Mean Corpuscular Volume 86.2 fl (80-94); Mean Platelet Volume 7.4 fl (7.4-10.4); Monocytes # 0.7 K/mm3 (0.1-1.0); Neutrophils # 9.2 K/mm3 (1.8-7.8); Neutrophils % 74.9 % (37.0-80.0); Platelet Count 488 K/mm3 (142-424); Red Blood Count 4.18 M/mm3 (4.60-6.20); Red Cell Distribution Width 15.5 % (11.5-17.5); White Blood Count 12.3 K/mm3 (4.8-10.8)
[2020-06-10 07:42] LABS: Chloride 101 mmol/L (98-107); Sodium 138 mmol/L (136-145)
[2020-06-10 07:43] LABS: Potassium 4.9 mmoL/L (3.5-5.1)
[2020-06-10 07:46] LABS: Anion Gap 15.9 mEq/L (5-15); Blood Urea Nitrogen 34 mg/dl (9-20); Calcium 8.7 mg/dl (8.4-10.2); Carbon Dioxide 26 mmol/L (22.0-30.0); Creatinine Clearance Estimated 75 mL/min (50-200); Estimated Glomerular Filt Rate 64 ml/min (>60); GFR (African American) 78 ML/MIN (>60); Glucose 89 mg/dl (74-100)
--- NOTE | 2020-06-10 08:13 | HMH.ACPN2 ---
<Ofelia Banda - Last Filed: 06/10/20 08:13> Internal Medicine - PN: Subj *Date: 06/10/20 *Time: 08:13 Interval history: Patient states he is feeling a little bit better this morning. He said his breathing has improved. He still has some swelling in his legs. He slept fairly well last night. He states his glucose was low this morning and did improve after he ate breakfast. He denies any chest pain. Exam Vital signs and Labs for Last 24 Hours: Temp Pulse Resp BP Pulse Ox 97.8 F 68 16 98/62 L 94 L 06/10/20 04:00 06/10/20 05:57 06/10/20 04:00 06/10/20 04:00 06/10/20 04:00 Laboratory Results - last 24 hr 06/09/20 05:55: POC Glucose 42 L* 06/09/20 06:01: POC Glucose < 40 L* 06/09/20 20:18: POC Glucose 90 06/10/20 06:15: POC Glucose 56 L 06/10/20 06:45: POC Glucose 68 L 06/10/20 07:08: WBC 12.3 H, RBC 4.18 L, Hgb 11.2 L, Hct 36.0 L, MCV 86.2, MCH 26.8 L, MCHC 31.1 L, RDW 15.5, Plt Count 488 H, MPV 7.4, Neut % (Auto) 74.9, Lymph % (Auto) 15.9, Hayes % (Auto) 6.0, Eos % (Auto) 2.5, Baso % (Auto) 0.8, Neut # (Auto) 9.2 H, Lymph # (Auto) 2.0, Hayes # (Auto) 0.7, Eos # (Auto) 0.3, Baso # (Auto) 0.1 06/10/20 07:08: Sodium 138, Potassium 4.9, Chloride 101, Carbon Dioxide 26, Anion Gap 15.9 H, BUN 34 H, Creatinine 1.10 D, Estimated Creat Clear 75, Estimated GFR 64, Est GFR ( Amer) 78 D, Glucose 89 D, Calcium 8.7 I & O for Last 24 hours: Intake & Output 06/07/20 06/08/20 06/09/20 06/10/20 11:59 11:59 11:59 11:59 Intake Total 370 / 370 530 / 530 Output Total 875 / 875 Balance -505 / -505 530 / 530 Weight 219 lb 11.2 oz 219 lb 11.121 oz Microbiology Reports for the Last 24 Hours: Microbiology 06/09/20 06:00 Sputum - Expectorated Sputum Gram Stain - Final 06/09/20 06:00 Sputum - Expectorated Sputum Sputum Culture - Final - Constitutional no acute distress - *Routine Respiratory Exam Present: CTA bilaterally - *Routine Cardiovascular Exam Present: tachycardia - *Routine Abdominal Exam Present: soft, normoactive bowel sounds, distended. Absent: tenderness - *Routine Extremities Exam Present: edema (2+ pretibial edema bilaterally). Absent: cyanosis, clubbing - *Routine Skin Exam Present: warm. Absent: rash - *Routine Neurological Exam Present: alert, oriented X3 Assessment and Plan (1) Left lower lobe pneumonia Current visit: Yes Status: Acute Qualifiers: Pneumonia type: due to unspecified organism Qualified Code(s): J18.9 - Pneumonia, unspecified organism Category: Medical Code(s): J18.9 - Pneumonia, unspecified organism (2) New onset of congestive heart failure Current visit: Yes Status: Acute Category: Medical Code(s): I50.9 - Heart failure, unspecified (3) HTN (hypertension) Current visit: No Status: Chronic Qualifiers: Hypertension type: essential hypertension Qualified Code(s): I10 - Essential (primary) hypertension Category: Medical Code(s): I10 - Essential (primary) hypertension (4) PAD (peripheral artery disease) Current visit: No Status: Chronic Category: Medical Code(s): I73.9 - Peripheral vascular disease, unspecified (5) Type 2 diabetes mellitus Current visit: Yes Status: Acute Category: Medical Code(s): E11.9 - Type 2 diabetes mellitus without complications (6) Hyperlipidemia Current visit: Yes Status: Acute Category: Medical Code(s): E78.5 - Hyperlipidemia, unspecified (7) Ischemic cardiomyopathy Current visit: Yes Status: Acute Category: Medical Code(s): I25.5 - Ischemic cardiomyopathy (8) Edema Current visit: No Status: Acute Qualifiers: Edema type: localized Qualified Code(s): R60.0 - Localized edema Category: Medical Code(s): R60.9 - Edema, unspecified (9) CAD (coronary artery disease) Current visit: No Status: Chronic Qualifiers: Coronary Disease-Associated Artery/Lesion type: [place] artery [place] vs. transplanted [place]
--- NOTE | 2020-06-10 09:31 | P.PN_ITS ---
Subjective Date: 06/10/20 Time: 09:31 Principal diagnosis: CHF, CM, NSTEMI Interval history: 80 yo WM in bedside chair in NAD. LE edema improved. No chest pain. Exam Vital signs and Labs for Last 24 Hours: Temp Pulse Resp BP Pulse Ox 98.1 F 137 H 18 121/77 100 06/10/20 08:00 06/10/20 08:00 06/10/20 08:00 06/10/20 08:00 06/10/20 08:00 Laboratory Results - last 24 hr 06/09/20 05:55: POC Glucose 42 L* 06/09/20 06:01: POC Glucose < 40 L* 06/09/20 20:18: POC Glucose 90 06/10/20 06:15: POC Glucose 56 L 06/10/20 06:45: POC Glucose 68 L 06/10/20 07:08: WBC 12.3 H, RBC 4.18 L, Hgb 11.2 L, Hct 36.0 L, MCV 86.2, MCH 26.8 L, MCHC 31.1 L, RDW 15.5, Plt Count 488 H, MPV 7.4, Neut % (Auto) 74.9, Lymph % (Auto) 15.9, [place] % (Auto) 6.0, Eos % (Auto) 2.5, Baso % (Auto) 0.8, Neut # (Auto) 9.2 H, Lymph # (Auto) 2.0, [place] # (Auto) 0.7, Eos # (Auto) 0.3, Baso # (Auto) 0.1 06/10/20 07:08: Sodium 138, Potassium 4.9, Chloride 101, Carbon Dioxide 26, Anion Gap 15.9 H, BUN 34 H, Creatinine 1.10 D, Estimated Creat Clear 75, Estimated GFR 64, Est GFR ( Amer) 78 D, Glucose 89 D, Calcium 8.7 I & O for Last 24 hours: Intake & Output 06/07/20 06/08/20 06/09/20 06/10/20 11:59 11:59 11:59 11:59 Intake Total 370 / 370 770 / 770 Output Total 875 / 875 Balance -505 / -505 770 / 770 Weight 219 lb 11.2 oz 219 lb 11.121 oz Microbiology Reports for the Last 24 Hours: Microbiology 06/09/20 06:00 Sputum - Expectorated Sputum Gram Stain - Final 06/09/20 06:00 Sputum - Expectorated Sputum Sputum Culture - Final - *Routine Respiratory Exam Present: decreased breath sounds, CTA bilaterally. Absent: accessory muscle use, rales, rhonchi, wheezes - *Routine Cardiovascular Exam Present: RRR, tachycardia. Absent: murmur, gallop, rubs - *Routine Extremities Exam Present: edema. Absent: calf tenderness Progress Note: A&P (1) Left lower lobe pneumonia Status: Acute Current Visit: Yes (2) New onset of congestive heart failure Status: Acute Current Visit: Yes (3) HTN (hypertension) Status: Chronic Current Visit: No (4) PAD (peripheral artery disease) Status: Chronic Current Visit: No (5) Type 2 diabetes mellitus Status: Acute Current Visit: Yes (6) Hyperlipidemia Status: Acute Current Visit: Yes (7) Ischemic cardiomyopathy Status: Acute Current Visit: Yes (8) Edema Status: Acute Current Visit: No (9) CAD (coronary artery disease) Status: Chronic Current Visit: No (10) HHD (hypertensive heart disease) Status: Chronic Current Visit: No (11) HLD (hyperlipidemia) Status: Chronic Current Visit: No (12) History of coronary artery bypass graft Status: Chronic Current Visit: No Assessment and Plan for All Diagnoses:: 1. NSTEMI with history of CABG 1993, clinically stable. Continue ASA and plavix. Cardiac cath planned today. 2. Severe CM, continue diuresis. No AMANDA/ARB at this time due to renal insufficiency. Begin low dose beta tushar today if BP tolerates. 3. Acute systolic CHF, continue diuresis. 4. PAD with history of stenting 5. DM, on insulin, glimeperide and metformin 6. HLD, on statin 7. ?skin cancer right shoulder
[2020-06-10 11:20] LABS: Troponin I 1.59 ng/ml (0.00-0.034)
[2020-06-10 11:44] LABS: POC Glucose,Bedside 52 (70-110)
[2020-06-10 11:44] LABS: POC Glucose,Bedside 52 (70-110)
--- NOTE | 2020-06-10 15:22 | PC.NURSE ---
Pt is status post-heart cath at this time. RT femoral site is covered with gauze and tegaderm with no drainage noted. He is resting in bed. Pt has been pleasant and cooperative this shift. A&O X4. No complaints of pain. Pt will remain on post-cath vitals until 2039 this evening. Pt will be allowed to sit up at 1530. Oxygen @ 2 LPM via NC was applied upon return to the unit due to increased SOA while laying flat and decreased O2 sats. A new 22 G peripheral IV was inserted while in the cath-lab in the RT forearm. It is noted to be patent and SL. HR continues to be elevated at 110-130 bpm. B/P has been slightly low. Call light within reach. Will continue to monitor.
--- NOTE | 2020-06-10 15:53 | DIET.NUTRFU ---
Nutritional Assessment, IP completed by student Leidy Nixon under my direct supervision.
--- NOTE | 2020-06-10 18:48 | PC.NURSE ---
Pt's room air sat at rest = 96%.
--- NOTE | 2020-06-10 19:04 | PC.NURSE ---
report given to hsamika
[2020-06-10 20:59] LABS: POC Glucose,Bedside 347 (70-110)
[2020-06-11] VITALS: PULSE 120
[2020-06-11 03:57] VITALS: BP 101/57; PULSE 114; RESP 16; TEMP 36.5; O2SAT 97
[2020-06-11 04:00] VITALS: PULSE 100
--- NOTE | 2020-06-11 04:23 | PC.NURSE ---
ICE WATER PROVIDED, PT WEIGHT COLLECTED, TRASH AND DIRTY LINENS EMPTIED AT THIS TIME. PT RESTING IN BED WITH EYES CLOSED, NO C/O AT THIS TIME.
[2020-06-11 05:00] VITALS: BMI 30.8
[2020-06-11 06:17] LABS: POC Glucose,Bedside 309 (70-110)
[2020-06-11 06:56] VITALS: PULSE 99; O2SAT 96
[2020-06-11 08:00] VITALS: BP 134/101; PULSE 132; PULSE 134; RESP 20; TEMP 36.6; O2SAT 98
--- NOTE | 2020-06-11 08:20 | HMH.ACPN2 ---
<Ofelia Banda - Last Filed: 06/11/20 08:20> Internal Medicine - PN: Subj *Date: 06/11/20 *Time: 08:20 Interval history: Patient states he is feeling better today. He slept well and ate a good breakfast. He states his legs feel better and are less swollen. He denies any chest pain and his shortness of breath has almost resolved. Exam Vital signs and Labs for Last 24 Hours: Temp Pulse Resp BP Pulse Ox 97.7 F 99 H 16 101/57 L 96 06/11/20 03:57 06/11/20 06:56 06/11/20 03:57 06/11/20 03:57 06/11/20 06:56 Laboratory Results - last 24 hr 06/10/20 05:56: POC Glucose 52 L 06/10/20 05:57: POC Glucose 52 L 06/10/20 07:08: Troponin I 1.59 H 06/10/20 20:42: POC Glucose 347 H* 06/11/20 06:05: POC Glucose 309 H* I & O for Last 24 hours: Intake & Output 06/08/20 06/09/20 06/10/20 06/11/20 11:59 11:59 11:59 11:59 Intake Total 370 / 370 770 / 770 770 / 770 Output Total 875 / 875 Balance -505 / -505 770 / 770 770 / 770 Weight 219 lb 11.2 oz 219 lb 11.121 oz 215 lb 7 oz Microbiology Reports for the Last 24 Hours: Microbiology 06/08/20 12:56 Blood Blood Culture - Preliminary NO GROWTH AFTER 48 HOURS 06/08/20 12:56 Blood Blood Culture - Preliminary NO GROWTH AFTER 48 HOURS Radiology Reports for the Last 24 Hours: Cath IMPRESSION Coronary artery disease as described above with adequate surgical revascularization Severe left ventricular dilatation with severe left ventricular dysfunction accompanied by severely elevated LVEDP PLAN 1. Patient requires aggressive diuresis followed by institution of beta blockers and Entresto 2. Patient should be offered a LifeVest prior to discharge home 3. Standard therapy for ischemic heart disease 4. Standard therapy for systolic heart failure 5. In 90 days patient should be reevaluated for AICD - Constitutional no acute distress - *Routine Respiratory Exam Present: CTA bilaterally - *Routine Cardiovascular Exam Present: RRR - *Routine Abdominal Exam Present: soft, normoactive bowel sounds. Absent: tenderness - *Routine Extremities Exam Present: edema (bilateral LE edema, slightly improved). Absent: cyanosis, clubbing - *Routine Skin Exam Present: warm. Absent: rash - *Routine Neurological Exam Present: alert, oriented X3 Assessment and Plan (1) Left lower lobe pneumonia Status: Acute Qualifiers: Pneumonia type: due to unspecified organism Qualified Code(s): J18.9 - Pneumonia, unspecified organism Category: Medical Code(s): J18.9 - Pneumonia, unspecified organism (2) New onset of congestive heart failure Status: Acute Category: Medical Code(s): I50.9 - Heart failure, unspecified (3) HTN (hypertension) Status: Chronic Qualifiers: Hypertension type: essential hypertension Qualified Code(s): I10 - Essential (primary) hypertension Category: Medical Code(s): I10 - Essential (primary) hypertension (4) PAD (peripheral artery disease) Status: Chronic Category: Medical Code(s): I73.9 - Peripheral vascular disease, unspecified (5) Type 2 diabetes mellitus Status: Acute Category: Medical Code(s): E11.9 - Type 2 diabetes mellitus without complications (6) Hyperlipidemia Status: Acute Category: Medical Code(s): E78.5 - Hyperlipidemia, unspecified (7) Ischemic cardiomyopathy Status: Acute Category: Medical Code(s): I25.5 - Ischemic cardiomyopathy (8) Edema Status: Acute Qualifiers: Edema type: localized Qualified Code(s): R60.0 - Localized edema Category: Medical Code(s): R60.9 - Edema, unspecified (9) CAD (coronary artery disease) Status: Chronic Qualifiers: Coronary Disease-Associated Artery/Lesion type: [place] artery [place] vs. transplanted heart: [place] heart Associated angina: without angina Qualified Code(s): I25.10 - Atherosclerotic heart disease of [place] coronary
--- NOTE | 2020-06-11 08:39 | XR_ITS ---
PROCEDURE: XR CHEST 2V CLINICAL INDICATION: pneumonia COMPARISON: XR CHEST PORTABLE from 06/08/2020 FINDINGS: Cardiomegaly. Prior CABG. Left lower lobe infiltrate has shown some improvement. Mild atelectasis or residual infiltrate noted in the lung bases with small bilateral effusions. Upper lobes are clear. No acute bony anomalies. IMPRESSION: Improvement in left lower lobe pneumonia with mild bibasilar atelectasis or infiltrate and small bilateral effusions Dictated by: Justin Weldon MD 06/11/2020 10:36 Electronically signed by Justin Weldon MD in [facility] 06/11/2020 10:36
--- NOTE | 2020-06-11 08:47 | HMH.PNCARD ---
Subjective Date: 06/11/20 Time: 08:47 Principal diagnosis: CHF, CM, NSTEMI Interval history: 80 yo WM in chair in NAD. Feeling better and wants to go home. Cedric discussion about state of heart and how we can treat it. He seemed receptive. Dr. Joy talked with patient. Exam Vital signs and Labs for Last 24 Hours: Temp Pulse Resp BP Pulse Ox 97.8 F 134 H 20 134/101 H 98 06/11/20 08:00 06/11/20 08:00 06/11/20 08:00 06/11/20 08:00 06/11/20 08:00 Laboratory Results - last 24 hr 06/10/20 05:56: POC Glucose 52 L 06/10/20 05:57: POC Glucose 52 L 06/10/20 07:08: Troponin I 1.59 H 06/10/20 20:42: POC Glucose 347 H* 06/11/20 06:05: POC Glucose 309 H* I & O for Last 24 hours: Intake & Output 06/08/20 06/09/20 06/10/20 06/11/20 11:59 11:59 11:59 11:59 Intake Total 370 / 370 770 / 770 1130 / 1130 Output Total 875 / 875 Balance -505 / -505 770 / 770 1130 / 1130 Weight 219 lb 11.2 oz 219 lb 11.121 oz 215 lb 7 oz Microbiology Reports for the Last 24 Hours: Microbiology 06/08/20 12:56 Blood Blood Culture - Preliminary NO GROWTH AFTER 48 HOURS 06/08/20 12:56 Blood Blood Culture - Preliminary NO GROWTH AFTER 48 HOURS - *Routine Respiratory Exam Present: CTA bilaterally. Absent: accessory muscle use, rales, rhonchi, wheezes - *Routine Cardiovascular Exam Present: RRR. Absent: murmur, gallop, rubs - *Routine Extremities Exam Present: edema. Absent: calf tenderness - *Routine Neurological Exam Present: alert, oriented X3, moving all extremities Progress Note: A&P (1) Left lower lobe pneumonia Status: Acute Current Visit: Yes (2) New onset of congestive heart failure Status: Acute Current Visit: Yes (3) HTN (hypertension) Status: Chronic Current Visit: No (4) PAD (peripheral artery disease) Status: Chronic Current Visit: No (5) Type 2 diabetes mellitus Status: Acute Current Visit: Yes (6) Hyperlipidemia Status: Acute Current Visit: Yes (7) Ischemic cardiomyopathy Status: Acute Current Visit: Yes (8) Edema Status: Acute Current Visit: No (9) CAD (coronary artery disease) Status: Chronic Current Visit: No (10) HHD (hypertensive heart disease) Status: Chronic Current Visit: No (11) HLD (hyperlipidemia) Status: Chronic Current Visit: No (12) History of coronary artery bypass graft Status: Chronic Current Visit: No Assessment and Plan for All Diagnoses:: OK for discharge home from Cardiology standpoint. Discussed LifeVest but will not order it as pt will likely not wear it. He has agreed to medications. Recommend: ASA 81 mg daily Clopidogrel 75 mg daily Coreg 3.125 mg twice daily Lisinopril 20 mg daily or, if affordable, then switch Entresto 24/26 mg BID. atorvastatin 40 mg daily lasix 40 mg BID spironolactone 25 mg BID Follow up in office in 1-2 wks BMP next week
--- NOTE | 2020-06-11 09:45 | PC.NURSE ---
to radiology with director educational radio (Noah Waldrop)
[2020-06-11 11:45] VITALS: BP 108/66; PULSE 131; RESP 18; TEMP 36.7; O2SAT 98
--- NOTE | 2020-06-11 13:50 | HMH.PHAINT ---
PATIENT WAS COUNSELED ON NEW MEDICATIONS: CEFUROXIME, SPIRONOLACTONE, FUROSEMIDE, AND CARVEDILOL. THE PATIENT WILL CONTINUE ALL HOME MEDICATIONS EXCEPT FOR FERROUS SULFATE WHICH WILL BE DISCONTINUED. THE PATIENT REQUESTED THAT NEW RX BE SENT TO [facility]. THE PATIENT DID NOT HAVE ANY QUESTIONS.
--- NOTE | 2020-06-12 10:20 | HMH.DCSUM ---
General - General Admission date:: 06/08/20 <Jensen Yates - 06/17/20 13:29> 06/08/20 <Ofelia Banda - 06/12/20 10:35> Discharge date: 06/08/20 <Ofelia Banda - 06/12/20 10:35> HPI HPI: Mr. Trevino is an 80yo gentleman with a history of ASCVD with multiple TN's resulting in CABG and stenting, HLP, T2DM, PAD, , HTN, GERD, and chronic back pain. He reports a 2-3 week history of progressive shortness of breath along with lower extremity edema, increasing abdominal size, and dry cough without fever. He denied any chest pain. He had not been resting well at night due to dyspnea when laying flat. After having a particularly bad night with lack of sleep and some episodes of confusion, he was evaluated via telehealth encounter by Dr. Yates yesterday morning and advised to present to the emergency room based on his symptoms. Upon arrival to the ED, he was found to have a left lower lobe infiltrate with elevated WBC. He also had mild cardiomegaly on CXR without overt heart failure although his BNP was elevated at 14,000. His initial troponin was also elevated. He was admitted for congestive heart failure and cardiology was consulted. <Ofelia Banda - 06/12/20 10:35> Hospital Course Hospital Course: The patient's initial chest x-ray showed a left lower lobe pneumonia and small bilateral effusions. He was admitted and started on Zithromax and Rocephin for his pneumonia. He was diuresed and cardiology was consulted. They ordered an echo which showed an EF of 20-25% and a right ventricular systolic pressure of 60 mmHg. They recommended a heart catheterization and continued diuresis with IV diuretics and Aldactone. They also felt he would need a low-dose beta-tushar for atrial fib versus atrial flutter with some mild tachycardia. The patient had a heart cath which showed coronary artery disease with adequate surgical revascularization. There was severe left ventricular dilatation with severe left ventricular dysfunction and an elevated LVEDP. They felt the patient with a require continued diuresis followed by institution of beta blockers and Entresto. They also recommended a LifeVest prior to discharge. In 90 days, they felt he should be reevaluated for an AICD. The patient's swelling and shortness of breath improved. He denied any further chest pain. He was able to sit up in the chair without difficulty. He was able to lay flat. A Chest x-ray was repeated to assess his pneumonia and it showed improvement. Dr. Joy did speak with the patient. He agreed to medications but not the LifeVest. He was stable to be discharged home and cardiology recommended he have aspirin 81 mg daily, Plavix 75 mg daily, Coreg 3.125 mg twice daily, lisinopril 20 mg daily or if affordable he could switch to Entresto 24/26 mg twice daily, atorvastatin 40 mg daily, Lasix 40 mg twice daily, and spironolactone 25 mg twice daily. They recommended follow-up in their office in 1 to 2 weeks and a BMP in one week. The patient was discharged. <Ofelia Banda - 06/12/20 12:40> Objective Vital signs: Temp Pulse Resp BP Pulse Ox 98.1 F 131 H 18 108/66 L 98 06/11/20 11:45 06/11/20 11:45 06/11/20 11:45 06/11/20 11:45 06/11/20 11:45 <MilanJensen neri - 06/17/20 13:29> Temp Pulse Resp BP Pulse Ox 98.1 F 131 H 18 108/66 L 98 06/11/20 11:45 06/11/20 11:45 06/11/20 11:45 06/11/20 11:45 06/11/20 11:45 <Ofelia Banda - 06/12/20 10:35> Narrative: - Constitutional no acute distress - *Routine Respiratory Exam Present: CTA bilaterally - *Routine Cardiovascular Exam Present: RRR - *Routine Abdominal Exam Present: soft, normoactive bowel sounds. Absent: tenderness - *Routine Extremities Exam Present: edema (bilateral LE edema, slightly improved). Absent: cyanosis, clubbing - *Routine Skin Exam Present: warm. Absent: rash - *Routine Neurological Exam Present: alert, oriented X3
== END 2020-06-11 14:08 | disposition home or self-care (01) | DRG 280 ==
LOC: ER 12:39 → 2ND 16:46
PROVIDERS: Internal Medicine; Physician Assistant; Admitting Provider Family Medicine; Emergency Provider Emergency Medicine; PCP Family Medicine; Visit Provider Family Medicine
DX: I11.0 Hypertensive heart disease with heart failure (principal); I50.21 Acute systolic (congestive) heart failure; I21.4 Non-ST elevation (NSTEMI) myocardial infarction; J18.9 Pneumonia, unspecified organism; I25.5 Ischemic cardiomyopathy; I25.2 Old myocardial infarction; I25.10 Atherosclerotic heart disease of native coronary artery without angina pectoris; E11.9 Type 2 diabetes mellitus without complications; Z87.891 Personal history of nicotine dependence; Z79.84 Long term (current) use of oral hypoglycemic drugs; Z79.82 Long term (current) use of aspirin; Z95.0 Presence of cardiac pacemaker; Z95.820 Peripheral vascular angioplasty status with implants and grafts; I70.203 Unspecified atherosclerosis of native arteries of extremities, bilateral legs
CPT/HCPCS: 36415; 71045; 71046; 80048; 80076; 82550; 82553; 82962; 83605; 83880; 84484; 85007; 85025; 85610; 87040; 87205; 93005; 93306; 93459; 94640; 94761; 96365; 96367; 96375; 99152; 99285; C1725; C1769; C1894; J1644; Q9957; Q9967

== ENCOUNTER → 2020-06-29 10:25 | Outpatient (CLI) | payer MEDICARE, SELFPAY ==
[2020-06-29 12:15] LABS: Chloride 100 mmol/L (98-107); Potassium 4.4 mmoL/L (3.5-5.1); Sodium 139 mmol/L (136-145)
[2020-06-29 12:18] LABS: Anion Gap 14.4 mEq/L (5-15); Blood Urea Nitrogen 31 mg/dl (9-20); Calcium 8.9 mg/dl (8.4-10.2); Carbon Dioxide 29 mmol/L (22.0-30.0); Estimated Glomerular Filt Rate 64 ml/min (>60); GFR (African American) 78 ML/MIN (>60); Glucose 228 mg/dl (74-100)
== END ==
PROVIDERS: Visit Provider Physician Assistant
DX: E78.5 Hyperlipidemia, unspecified (principal); I25.10 Atherosclerotic heart disease of native coronary artery without angina pectoris; I50.20 Unspecified systolic (congestive) heart failure; I73.9 Peripheral vascular disease, unspecified; R60.9 Edema, unspecified; Z95.1 Presence of aortocoronary bypass graft
CPT/HCPCS: 36415; 80048

== ENCOUNTER → 2020-07-14 09:25 | Outpatient (CLI) | payer MEDICARE, SELFPAY ==
[2020-07-14 10:04] LABS: Chloride 100 mmol/L (98-107); Sodium 140 mmol/L (136-145)
[2020-07-14 10:05] LABS: Potassium 3.9 mmoL/L (3.5-5.1)
[2020-07-14 10:08] LABS: Anion Gap 13.9 mEq/L (5-15); Blood Urea Nitrogen 23 mg/dl (9-20); Calcium 9.4 mg/dl (8.4-10.2); Carbon Dioxide 30 mmol/L (22.0-30.0); Estimated Glomerular Filt Rate 72 ml/min (>60); GFR (African American) 87 ML/MIN (>60); Glucose 160 mg/dl (74-100)
== END ==
PROVIDERS: Visit Provider Physician Assistant
DX: E11.69 Type 2 diabetes mellitus with other specified complication (principal); E78.49 Other hyperlipidemia; I10 Essential (primary) hypertension; I11.9 Hypertensive heart disease without heart failure; I25.10 Atherosclerotic heart disease of native coronary artery without angina pectoris; I25.5 Ischemic cardiomyopathy; I50.20 Unspecified systolic (congestive) heart failure; I73.9 Peripheral vascular disease, unspecified; M79.672 Pain in left foot; R06.00 Dyspnea, unspecified; R60.0 Localized edema; R94.31 Abnormal electrocardiogram [ECG] [EKG]; Z95.1 Presence of aortocoronary bypass graft
CPT/HCPCS: 36415; 80048

== ENCOUNTER → 2020-08-14 07:06 | Outpatient (CLI) | payer MEDICARE, SELFPAY ==
[2020-08-14 09:12] LABS: Chloride 101 mmol/L (98-107); Sodium 140 mmol/L (136-145)
[2020-08-14 09:13] LABS: Potassium 4.6 mmoL/L (3.5-5.1)
[2020-08-14 09:15] LABS: Alanine Aminotransferase 19 U/L (12-78); Albumin Level 3.8 g/dl (3.5-5.0); Albumin/Globulin Ratio 1.4 (1.1-1.8); Alkaline Phosphatase 97 U/L (38-126); Aspartate Amino Transferase 31 U/L (17-59); Bilirubin,Total 0.6 mg/dl (0.2-1.3); Blood Urea Nitrogen 27 mg/dl (9-20); Carbon Dioxide 29 mmol/L (22.0-30.0); Estimated Glomerular Filt Rate 72 ml/min (>60); GFR (African American) 87 ML/MIN (>60); Globulin 2.7 g/dL (1.3-3.2); Total Protein,Serum 6.5 g/dl (6.3-8.2)
[2020-08-14 09:16] LABS: Calcium 9.7 mg/dl (8.4-10.2); Chol/HDL Ratio 3.7 (1-3.5); Cholesterol 117 mg/dl (140-200); Glucose 124 mg/dl (74-100); HDL Cholesterol 32 mg/dl (40-60); Triglycerides 94 mg/dl (30-150); VLDL Cholesterol 19 mg/dL (0-40)
[2020-08-14 09:27] LABS: Direct LDL Cholesterol 70.28 mg/dL (100-129)
[2020-08-14 10:07] LABS: Hemoglobin A1C 8.6 % (4.0-6.0)
== END ==
PROVIDERS: Visit Provider Family Medicine
DX: I10 Essential (primary) hypertension (principal); E78.5 Hyperlipidemia, unspecified; E11.9 Type 2 diabetes mellitus without complications; Z79.4 Long term (current) use of insulin
CPT/HCPCS: 36415; 80053; 80061; 83036

== ENCOUNTER → 2020-09-09 13:26 | Outpatient (CLI) | payer MEDICARE, SELFPAY ==
--- NOTE | 2020-09-09 13:26 | CA_ITS ---
APPROVED REPORT EXAM: Comprehensive 2D, Doppler, and color-flow Echocardiogram Workforce Development Assistant: Laura Aquino RVT Ht: 5 ft 9 in Wt: 199lbs BSA: 2.06 BP: 96/61 mmHg Indications: SOA,CAD,CHF,HTN,HLD,EF OF 20-25% ON 06/09/20 2D Dimensions LVOT 1.40 cm (M/F) 1.5-2.5 M-Mode Dimensions RVDd 1.70 cm (0.9-2.6) LA Diam 4.60 cm (1.9-4.0) LVDd 7.90 cm (3.5-5.7) Ao Diam 3.40 cm (2.0-3.7) LVDs 6.90 cm (3.5-5.7) AV Cusp 1.80 cm (1.5-2.6) IVSd 0.60 cm (0.6-1.1) PWd 0.70 cm (0.6-1.1) EF (Teich) 26.30% FS 12.70% EDV (Teich) 335.00 mL ESV (Teich) 247.00 mL LV Diastology E/A Ratio 1.1 MED E' 4.68 (< 7 cm/sec) E'/MED E' Ratio 28.00 (>14) LAT E' 12.40 (<10 cm/sec) E/LAT E' Ratio 10.60 (>14) Mitral Valve MV E Max Johan. 131.00 (40-130 cm/s) MV A Velocity 117.00 (40-130 cm/s) E/A Ratio 1.10 Pulmonary Valve PV Peak Velocity 109.00 (50-150 cm/s) Tricuspid Valve TR P. Velocity 337.00 cm/s Left Ventricle Left atrium is moderately enlarged, left ventricle is mildly dilated, severely recessed ventricular systolic function, visually estimated ejection fraction 25 to 30%, left ventricle is globally hypokinetic, there is abnormal septal motion. Diastolic parameters are inconclusive. Right Ventricle Right atrium and right ventricle mildly alert with normal contractility. Aortic Valve Aortic valve is thickened and calcified leaflet continue to display good mobility, there is no aortic stenosis or aortic insufficiency. Mitral Valve Multiple leaflets are minimally thickened, there is no mitral stenosis, there is moderate to severe mitral regurgitation. Tricuspid Valve Tricuspid valve is grossly normal, there is mild tricuspid regurgitation, tricuspid regurgitation jet proceeds inadequate for calculation of the right ventricular systolic pressure. Pulmonic Valve Pulmonic valve is poorly visualized. Great Vessels Aortic root is normal size. Pericardium No significant pericardial effusion noted. Conclusion 1. Moderately in the left atrium, dilated left ventricle, severely recessed ventricular systolic function, visually estimated ejection fraction 25 to 30% left ventricle is globally hypokinetic, diastolic parameters are inconclusive for 2. Moderate to severe mitral and mild tricuspid regurgitation. 3. No significant pericardial effusion noted. Electronically signed by : Fede Nicole, 09/10/2020 14:48:05
== END ==
PROVIDERS: PCP Family Medicine; Visit Provider Urology
DX: R06.00 Dyspnea, unspecified (principal)
CPT/HCPCS: 93306

== ENCOUNTER → 2020-11-16 07:05 | Outpatient (CLI) | payer MEDICARE, SELFPAY ==
[2020-11-16 08:01] LABS: Hemoglobin A1C 8.8 % (4.0-6.0)
[2020-11-16 08:04] LABS: Chloride 102 mmol/L (98-107); Potassium 4.6 mmoL/L (3.5-5.1); Sodium 137 mmol/L (136-145)
[2020-11-16 08:07] LABS: Anion Gap 12.6 mEq/L (5-15); Blood Urea Nitrogen 47 mg/dl (9-20); Calcium 9.3 mg/dl (8.4-10.2); Carbon Dioxide 27 mmol/L (22.0-30.0); Estimated Glomerular Filt Rate 58 ml/min (>60); GFR (African American) 70 ML/MIN (>60); Glucose 109 mg/dl (74-100)
== END ==
PROVIDERS: Visit Provider Family Medicine
DX: E11.9 Type 2 diabetes mellitus without complications (principal); I10 Essential (primary) hypertension; Z79.4 Long term (current) use of insulin
CPT/HCPCS: 36415; 80048; 83036

== ENCOUNTER → 2020-12-17 10:05 | Outpatient (CLI) | payer MEDICARE, SELFPAY ==
[2020-12-17 11:04] LABS: Basophils # 0.1 K/mm3 (0-0.2); Basophils % 0.8 % (0.1-2.0); Eosinophils # 0.5 K/mm3 (0.0-0.4); Eosinophils % 4.2 % (0.1-12.0); Hematocrit 31.9 % (42.0-52.0); Hemoglobin 10.1 g/dL (14.1-18.0); Lymphocytes # 2.5 K/mm3 (0.7-4.5); Mean Corpuscular HGB Conc 31.5 g/dL (31.8-35.4); Mean Corpuscular Hemoglobin 25.8 pg (27.0-31.2); Mean Platelet Volume 7.7 fl (7.4-10.4); Monocytes # 0.7 K/mm3 (0.1-1.0); Monocytes % 6.2 % (1.7-9.3); Neutrophils # 7.1 K/mm3 (1.8-7.8); Neutrophils % 65.8 % (37.0-80.0); Platelet Count 329 K/mm3 (142-424); Red Blood Count 3.89 M/mm3 (4.60-6.20); Red Cell Distribution Width 16.6 % (11.5-17.5); White Blood Count 10.8 K/mm3 (4.8-10.8)
[2020-12-17 11:47] LABS: Anion Gap 16.1 mEq/L (5-15); Blood Urea Nitrogen 55 mg/dl (9-20); Calcium 9.7 mg/dl (8.4-10.2); Carbon Dioxide 25 mmol/L (22.0-30.0); Chloride 101 mmol/L (98-107); Estimated Glomerular Filt Rate 49 ml/min (>60); GFR (African American) 59 ML/MIN (>60); Glucose 231 mg/dl (74-100); Potassium 5.1 mmoL/L (3.5-5.1); Sodium 137 mmol/L (136-145)
[2020-12-17 12:03] LABS: Coronavirus 19 IgG Antibody Positive (Negative)
[2020-12-17 12:04] LABS: Coronavirus 19 IgM Antibody Positive (Negative)
== END ==
PROVIDERS: Visit Provider Internal Medicine
DX: Z01.812 Encounter for preprocedural laboratory examination (principal); I50.20 Unspecified systolic (congestive) heart failure; Z20.822 Contact with and (suspected) exposure to COVID-19; Z86.16 Personal history of COVID-19
CPT/HCPCS: 36415; 80048; 85025; 86328; U0003

== ENCOUNTER 2020-12-23 08:47 | Day surgery (SDC) | payer MEDICARE, SELFPAY ==
[2020-12-23] VITALS (7 sets, daily range): BP systolic 83–133; BP diastolic 52–74; PULSE 80–98; RESP 18–20; TEMP 36.6–36.7; O2SAT 96–99; BMI 28.6
--- NOTE | 2020-12-23 | IR_ITS ---
APPROVED REPORT Patient Location: Outpatient Principal Hardware Architect: MARY Hutson RT (R) PROCEDURES 1. Pocket formation for AICD. 2. Placement of atrial sensing and pacing coil into the right atrial appendage. 3. Placement of a ventricular sensing, pacing and shocking coil in the right ventricular apex. 4. Permanent AICD placement. INDICATION Chronic Atrial Tachy, Ischemic Cardiomyopathy, Ejection fraction 30%, [place] Heart Assoication Class 3 Informed consent was obtained prior to the procedure. COMPLICATIONS None Estimated Blood Loss: Less than 10 mls TECHNIQUE 1% Lidocaine with epinephrine used to anesthetized the left anterior aspect of the chest. Scalpel was used to make the initial cutaneous incision while electrocautery was used to dissect down tinto the fascia. The fascia was lifted off the pectoralis muscle and digitally manipulated creating a pocket for the defibrillator. The patient was then placed in Trendelenburg position and the subclavian vein was accessed twice via the Selinger technique. A 8 [place] sheath was placed under fluoroscopic guidance into the subclavian vein. The dilator was removed from the sheath. Using fluoroscopic guidance, the ventricular shocking lead was placed into the right ventricular apex, screwed and secured into place. Electronic interrogation proved acceptable thresholds and voltage within the lead. Using 3-0 silk, the ventricular lead was then secured into place and sheath peeled away. A 6 [place] fresh sheath and dilator was placed over the existing wire. Using fluoroscopic guidance, the atrial lead was then placed into the right atrial appendage and screwed and secured in place. Electrical interrogation demonstrated acceptable thresholds and voltage number. The atrial lead was then secured into place using 3-0 silk and sheath peeled away. 1 gram of Ancef was used to flush the pocket. Both leads were connected to generator and tested via computer. The defibrillator then secured to the fascia. Monocryl was used to close the subcutaneous layers while ivelisse were used to close the cutaneous layer. A pressure dressing was placed and the patient was transferred to the postop holding area in stable condition for postoperative care. INTERROGATION Generator Model number: PAPA LO DR, D233 Generator Serial number: [id number] Atrial lead model number: INGEVITY+ 52 cm, 7841 Atrial lead serial number: [id number] P-wave: 5.0mV Impedence: 500 ohms Threshold: Afib Right Ventricular lead model number: RELIANCE 4-FRONT 59cm, 0675 Right Ventricular lead serial number: [id number] R-wave: 9.0mV Impedence: 500 ohms Threshold: 0.5V@0.4ms Pacing Parameters: Mode: DDIR ICD Rate Cutoffs: VF: 200 BPM, 2.5 sec, Quick Convert [id number] VT: 160 BPM, 5.0 sec, Monitor only No diaphragmatic stimulation at 10 volts. IMPRESSION 1. Successful pocket formation for AICD. 2. Successful placement of atrial sensing and pacing coil into the right atrial appendage. 3. Successful placement of a ventricular sensing, pacing and shocking coil in the right ventricular apex. 4. Successful permanent AICD placement. PLAN 1. Post op wound care, follow up office visit Electronically signed by : Dre Joy, 12/23/2020 13:57:07
--- NOTE | 2020-12-23 12:45 | XR_ITS ---
PROCEDURE: XR CHEST PORTABLE Referring Doctor: Benita, Dre Patient Age:80Y CLINICAL HISTORY: Confirm pacemaker/AID placement COMPARISON: CR XR CHEST PORTABLE from 06/08/2020 CR XR CHEST 2V from 06/11/2020 FINDINGS: AP portable CXR, post pacemaker implantation The pacer device overlies the upper left chest with atrial and ventricular leads now evident.. Skin ivelisse reflect the recent implantation of the pacemaker. The thickened leads suggest this is ICD device.. The the heart is slight generous in size with borderline/mild cardiomegaly. Sternotomy with CABG again noted The lungs are clear of mildly expanded but with no active disease... Normal pulmonary vascularity. No CHF but calcified aortic knob. Kaylen and mediastinal structures satisfactory IMPRESSION: Pacer/ICD device has been placed and now evident. Lungs clear with no acute findings. . Borderline/mild cardiomegaly. CABG with sternotomy Dictated by: Gavino Cain MD 12/23/2020 13:51 Gavino Cain MD in [place] 12/23/2020 13:51
--- NOTE | 2020-12-23 13:57 | HMH.ANESCL ---
[facility] Anesthesia Checklist - Patient Identification Patient Identification: Arm Band - Structural Data Admitted From: Home Planned Operative Procedure/s: aicd placement Consent for Planned Operative Procedure(s) Verified: Yes Verified Documents: Surgical Consent, History and Physical - NPO Status Verified Time NPO: 00:00 - Additional verifications Anesthesia Reactions: No - Airway Assessment C-Spine Mobility Assessed: Yes (mp2) TMJ Mobility Assessed: Yes Dentition: Dentures-good fit - Neurological Assessment Level of Consciousness: Awake, Alert - Anesthesia Plan Anesthesia Risk discussed: Yes Anesthesia Plan: Verified ASA Class: III Anesthesia Type: [facility] History Medical History: Reports:: Atrial Fibrillation, Congestive Heart Failure, Coronary Artery Disease, Diabetes Mellitus Type 2, Gastroesophageal Reflux Disease(GERD), Hyperlipidemia, Hypertension, Myocardial Infarction, Peripheral Artery Disease Denies:: Cancer, Diabetes Mellitus Type 1, Internal Pacemaker, MRSA, Seizures *Have you ever received a pneumonia vaccine?: Yes *Have you received a flu vaccine this season?: Yes Other Medical History: Reports: Arthritis Anesthesia experience/problems:: nac Other Surgeries: Yes: CABG, Colonoscopy, Other. No: Pacemaker Amputation: No Fractures: No - *Social History Last grade of school completed: 9th or 10th Smoking Status: Never smoker Tobacco Type: cigarettes Alcohol Intake: never Alcohol Intake Frequency:: other Substance Use Type: denies use *Occupational Status:: retired Housing: house Household Members: spouse *Travel in the last 8 weeks: None Family Hx:: Cancer, Coronary Artery Disease, Diabetes, Heart Attack
== END 2020-12-23 14:10 | disposition home or self-care (01) ==
LOC: CATHLAB 08:48
PROVIDERS: PCP Family Medicine; Visit Provider Internal Medicine
PROC: 0JH608Z Insertion of Defibrillator Generator into Chest Subcutaneous Tissue and Fascia, Open Approach (ICD-10-PCS; CPT 33249; principal; 2020-12-23 09:00)
DX: I11.0 Hypertensive heart disease with heart failure (principal); I48.91 Unspecified atrial fibrillation; I50.9 Heart failure, unspecified; E11.9 Type 2 diabetes mellitus without complications; I25.5 Ischemic cardiomyopathy; Z79.02 Long term (current) use of antithrombotics/antiplatelets; Z79.4 Long term (current) use of insulin; Z79.899 Other long term (current) drug therapy; Z87.891 Personal history of nicotine dependence; Z95.1 Presence of aortocoronary bypass graft
CPT/HCPCS: 33249; 71045; C1721; C1895; C1898

== ENCOUNTER 2020-12-31 04:48 | Inpatient (IN) | payer MEDICARE, SELFPAY ==
[2020-12-31] VITALS (27 sets, daily range): BP systolic 62–140; BP diastolic 32–80; PULSE 64–137; RESP 15–20; TEMP 36.3–37; O2SAT 91–100; BMI 27.6; BMI 27.7
[2020-12-31 05:43] LABS: Albumin Level 3.4 g/dl (3.5-5.0); Albumin/Globulin Ratio 1.2 (1.1-1.8); Alkaline Phosphatase 94 U/L (38-126); Anion Gap 19.7 mEq/L (5-15); Bilirubin,Total 0.3 mg/dl (0.2-1.3); Blood Urea Nitrogen 50 mg/dl (9-20); Calcium 8.8 mg/dl (8.4-10.2); Carbon Dioxide 17 mmol/L (22.0-30.0); Chloride 102 mmol/L (98-107); Creatinine Clearance Estimated 46 mL/min (50-200); Estimated Glomerular Filt Rate 42 ml/min (>60); GFR (African American) 51 ML/MIN (>60); Globulin 2.8 g/dL (1.3-3.2); Sodium 132 mmol/L (136-145); Total Protein,Serum 6.2 g/dl (6.3-8.2)
[2020-12-31 05:45] LABS: Alanine Aminotransferase 22 U/L (12-78); Aspartate Amino Transferase 27 U/L (17-59)
[2020-12-31 05:46] LABS: Basophils # 0.1 K/mm3 (0-0.2); Basophils % 0.8 % (0.1-2.0); Eosinophils # 0.4 K/mm3 (0.0-0.4); Lymphocytes # 3.7 K/mm3 (0.7-4.5); Lymphocytes % 26.4 % (10-50); Mean Corpuscular HGB Conc 35.1 g/dL (31.8-35.4); Mean Corpuscular Hemoglobin 29.4 pg (27.0-31.2); Mean Corpuscular Volume 83.7 fl (80-94); Mean Platelet Volume 7.3 fl (7.4-10.4); Monocytes # 0.8 K/mm3 (0.1-1.0); Monocytes % 5.9 % (1.7-9.3); Neutrophils # 8.8 K/mm3 (1.8-7.8); Neutrophils % 63.9 % (37.0-80.0); Platelet Count 253 K/mm3 (142-424); Red Blood Count 2.33 M/mm3 (4.60-6.20); Red Cell Distribution Width 16.1 % (11.5-17.5); White Blood Count 13.8 K/mm3 (4.8-10.8)
[2020-12-31 05:47] LABS: Glucose 439 mg/dl (74-100); Potassium 6.7 mmoL/L (3.5-5.1)
[2020-12-31 05:48] LABS: Hematocrit 19.5 % (42.0-52.0); Hemoglobin 6.8 g/dL (14.1-18.0)
[2020-12-31 05:49] LABS: C-Reactive Protein 5.2 mg/L (0-4); Occult Blood,Stool Positive (Negative)
[2020-12-31 05:49] LABS: Acetone, Serum (Rapid) None Detected (None Detect)
[2020-12-31 05:55] LABS: NT Pro Brain Natriuretic Pep. 2990 pg/mL (0-450)
--- NOTE | 2020-12-31 05:56 | CT_ITS ---
PROCEDURE: CT ABDOMEN PELVIS WO CON CLINICAL INDICATION: Abd pain w/ blood in stools Bright red blood in stools COMPARISON: No exams were available for comparison TECHNIQUE: Axial images obtained with sagittal and coronal reformats. All CT scans at the facility use one or more dose reduction, viz: automated exposure control, ma/kV adjustment per patient size (including targeted exams where dose is matched to indication, i.e. head), or iterative reconstruction technique. FINDINGS: LOWER THORAX: Artifact from cardiac pacemaker device. Mild nonspecific thickening of the distal esophagus. Coronary artery calcification and/or stent noted in RCA ABDOMEN & PELVIS: The liver and spleen and adrenal glands and pancreas and kidneys have an unremarkable unenhanced appearance. Numerous gallstones are present. No renal or ureteral calculi. No intestinal obstruction or free air. There are few air-fluid levels within the small bowel in the left mid abdominal region with some mild thickening of the bowel loops. A few air-fluid levels are also present within the large bowel. Enterocolitis is a consideration. There is colonic diverticulosis but no evidence of diverticulitis. No evidence of appendicitis there nonspecific prostate calcifications. Bilateral inguinal hernias are present containing fat. Degenerative disc disease is present at L4-5 with grade 1 spondylitic spondylolisthesis. Increased density is present in the subcutaneous region of the lower abdomen and could be due to areas of injection. IMPRESSION: 1. Possible enterocolitis. 2. Colonic diverticulosis without diverticulitis. 3. Cholelithiasis 4. Other nonacute findings as detailed above Dictated by: Justin Weldon MD 12/31/2020 06:37 Justin Weldon MD in [place] 12/31/2020 06:37
[2020-12-31 06:02] LABS: Procalcitonin 0.062 ng/mL (0.0-2.0)
[2020-12-31 06:06] LABS: Coronavirus 19 IgG Antibody Positive (Negative); Coronavirus 19 IgM Antibody Negative (Negative)
[2020-12-31 06:23] LABS: Erythrocyte Sedimentation Rate 87 mm/hr (0-20)
--- NOTE | 2020-12-31 06:25 | HMH.EDGIBL ---
ED Disposition Clinical Impression: Lower gastrointestinal hemorrhage, AICD (automatic cardioverter/defibrillator) present, Hyperkalemia Atrial fibrillation Qualifiers: Atrial fibrillation type: unspecified chronic Qualified Code(s): I48.20 - Chronic atrial fibrillation, unspecified Type 2 diabetes mellitus Qualifiers: Diabetes mellitus terminal press operator insulin use: unspecified [facility] insulin use status Diabetes mellitus complication status: with other specified complication Qualified Code(s): E11.69 - Type 2 diabetes mellitus with other specified complication Renal failure (ARF), acute on chronic Qualifiers: Acute renal failure type: unspecified Chronic kidney disease stage: unspecified stage Qualified Code(s): N17.9 - Acute kidney failure, unspecified; N18.9 - Chronic kidney disease, unspecified Disposition: Admitted As Inpatient Condition on Discharge: [facility] - Critical Care Critical Care Time: No Attestation: On 12/31/20, the high probability of a clinically significant, sudden or life threatening deterioration of the following system(s) required my full and direct attention, intervention and personal management. The time I documented below is in addition to time spent performing reported procedures but includes the following listed in this critical care notation. Medical Decision Making - Medical Records Medical records reviewed: Yes: I reviewed the patient's medical records. - Gallo Inquiry Pt receiving controlled substance: No Vital Signs: 12/31/20 04:54 12/31/20 05:30 12/31/20 06:00 Temperature 98.2 F Temperature Source Oral Pulse Rate [Right] 70 78 104 H Respiratory Rate 16 15 18 Blood Pressure [Left Arm] 115/64 131/78 140/80 Blood Pressure Mean [Left Arm] 81 95 100 Blood Pressure Source [Left Arm] Automatic Cuff Automatic Cuff Automatic Cuff Blood Pressure Position [Left Arm] Sitting Supine Supine 02 Sat by Pulse Oximetry 91 L 98 98 Oxygen Delivery Method Room Air Room Air Room Air - Lab Data Lab results reviewed: Yes: I reviewed the patient's lab results. Lab Results 12/31/20 04:30: Hemoglobin A1c 8.9 H 12/31/20 04:30: NT-Pro-B Natriuret Pep 2990 H 12/31/20 04:30: Acetone Level None detected 12/31/20 05:05: Stool Occult Blood Positive A 12/31/20 05:05: WBC 13.8 H, RBC 2.33 L, Hgb 6.8 L*, Hct 19.5 L*, MCV 83.7, MCH 29.4, MCHC 35.1, RDW 16.1, Plt Count 253, MPV 7.3 L, Neut % (Auto) 63.9, Lymph % (Auto) 26.4, [place] % (Auto) 5.9, Eos % (Auto) 3.0, Baso % (Auto) 0.8, Neut # (Auto) 8.8 H, Lymph # (Auto) 3.7, [place] # (Auto) 0.8, Eos # (Auto) 0.4, Baso # (Auto) 0.1, ESR 87 H 12/31/20 05:05: Sodium 132 L, Potassium 6.7 H*, Chloride 102, Carbon Dioxide 17 L, Anion Gap 19.7 H, BUN 50 H, Creatinine 1.60 H, Estimated Creat Clear 46, Estimated GFR 42 L, Est GFR ( Amer) 51 L, Glucose 439 H*, Calcium 8.8, Total Bilirubin 0.3, AST 27, ALT 22, Alkaline Phosphatase 94, C-Reactive Protein 5.2 H, Total Protein 6.2 L, Albumin 3.4 L, Globulin 2.8, Albumin/Globulin Ratio 1.2, Procalcitonin 0.062 12/31/20 05:05: SARS-CoV-2 IgG Ab (Rapid) Positive A, SARS-CoV-2 IgM Ab (Rapid) Negative Result diagrams: 12/31/20 05:05 12/31/20 05:05 Orders (Tests/Meds): ED MEDICATIONS Generic Name Dose Route Start Last Admin Trade Name Freq PRN Reason Stop Dose Admin Sodium Chloride 1,000 mls @ 999 mls/hr 12/31/20 05:15 12/31/20 05:19 Sod Chlor 0.9% 1000ml Bag IV 12/31/20 06:15 999 mls/hr .Q1H1M AMANDA Administration Pantoprazole Sodium 80 mg/ 100 mls @ 10 mls/hr 12/31/20 06:06 12/31/20 06:10 Sodium Chloride IV 01/03/21 06:05 10 mls/hr .Q10H AMANDA Administration Sodium Chloride 250 mls @ 25 mls/hr 12/31/20 07:00 Sod Chlor 0.9% 250ml Bag IV 02/05/21 06:59 .Q10H AMANDA Calcium Gluconate 1,000 mg/ 60 mls @ 60 mls/hr 12/31/20 06:53 12/31/20 06:55 Sodium Chloride IV 12/31/20 07:52 60 mls/hr ONCE ONE Administration Discontinued Medications Generic Name Dose Route Start Last Admin Trad
--- NOTE | 2020-12-31 06:35 | PC.NURSE ---
Alexis speaking with Anurag regarding admission.
--- NOTE | 2020-12-31 06:39 | PC.NURSE ---
Alexis speaking with at this time
[2020-12-31 06:41] LABS: Hemoglobin A1C 8.9 % (4.0-6.0)
--- NOTE | 2020-12-31 06:50 | ECG_ITS ---
APPROVED REPORT Exam: Resting ECG HR:132 bpm ECG Measurements Heart Rate 132 AXES QRSd 104 QRS 76 QT 312 T 222 QTc 462 Conclusion Atrial fibrillation with rapid ventricular response Low voltage QRS ST & T wave abnormality, consider inferolateral ischemia or digitalis effect Abnormal ECG Electronically signed by : Jevon Aguirre, 12/31/2020 21:15:52
--- NOTE | 2020-12-31 07:25 | HMH.PHAVTE ---
[facility] Pharmacy VTE Monitoring - Patient Demographics Admission date: 12/31/20 Report Date: 12/31/20 Time: 07:25 Allergies/Adverse Reactions: Patient Allergies pregabalin [From Lyrica] Allergy (Mild, Verified 12/30/20 11:36) shellfish derived Allergy (Mild, Verified 12/30/20 11:36) Height: 1.78 m Weight: 87.543 kg Patient Problems: Current Active Problems Lower gastrointestinal hemorrhage (Acute) AICD (automatic cardioverter/defibrillator) present (Acute) Hyperkalemia (Acute) Renal failure (ARF), acute on chronic (Acute) Atrial fibrillation (Acute) Type 2 diabetes mellitus (Chronic) - VTE Risk Labs: VTE Related Lab Results Hgb 6.8 g/dL (14.1-18.0) L* 12/31/20 05:05 Hct 19.5 % (42.0-52.0) L* 12/31/20 05:05 Plt Count 253 K/mm3 (142-424) 12/31/20 05:05 BUN 50 mg/dl (9-20) H 12/31/20 05:05 Creatinine 1.60 mg/dl (0.66-1.25) H 12/31/20 05:05 Estimated Creat Clear 46 mL/min (50-200) 12/31/20 05:05 - Prophylaxis VTE Prophylaxis Ordered?: Yes Types of VTE Prophylaxis: TEDS Knee High Location of Applied Device: Bilateral Lower Extremeties
--- NOTE | 2020-12-31 07:27 | PC.NURSE ---
FSBS 296
[2020-12-31 07:32] LABS: POC Glucose,Bedside 296 (70-110)
--- NOTE | 2020-12-31 07:41 | PC.NURSE ---
patient arrived to floor
[2020-12-31 07:51] LABS: Troponin I < 0.01 ng/ml (0.00-0.034)
--- NOTE | 2020-12-31 08:38 | HMH.PHAINT ---
home medication list completed using list from home pharmacy, list from cardiology office and speaking with patient's
--- NOTE | 2020-12-31 09:54 | HMH.HP ---
*Admission Date: 12/31/20 <Ofelia Banda 12/31/20 10:01> *Chief complaint: blood per rectum <Ofelia Banda 12/31/20 10:01> *History of present illness: Mr. Trevino is an 80-year-old male with a history of ASCVD, NH, hyperlipidemia, type 2 diabetes, and iron deficiency anemia who presented to the emergency room after multiple episodes of bright red blood in his stool. He just recently had an AICD placed on 12/17 and he was started on Xarelto yesterday after a follow-up appointment with Dr. Joy revealed episodes of atrial fib. His states he already takes Plavix and she added the Xarelto last night. He had 3 episodes of bright red blood in his stool and the 3 AM episode filled the toilet. He became very weak, dizzy, and short of breath and he was therefore brought to the emergency room for evaluation. He was found to be anemic with a hemoglobin of 6.8 and hematocrit of 19.5 and was admitted. Packed red blood cells have been ordered and cardiology has been consulted. He has had some nausea and some abdominal pain but no vomiting. He denies any fever. His potassium was also elevated. His states cardiology has recently increased his spironolactone dose to twice daily. His glucose was elevated at 439 and his renal functions were elevated as well. He had a BNP of 2990. His stool for blood was positive. He had a positive Covid IgG antibody but a negative IgM antibody. Of note, before his procedure on 12/17/2020, the patient had a positive IgM and IgG on his Covid antibody test, but a negative nasal swab. <Ofelia Banda 12/31/20 10:13> [facility] History I have reviewed the patient's past medical history: Yes <Ofelia Banda 12/31/20 10:13> Medical History: Reports:: Atrial Fibrillation, Congestive Heart Failure, Coronary Artery Disease, Diabetes Mellitus Type 2, Gastroesophageal Reflux Disease(GERD), Hyperlipidemia, Hypertension, Internal Pacemaker, Myocardial Infarction, Peripheral Artery Disease Denies:: Cancer, Diabetes Mellitus Type 1, MRSA, Seizures <Ofelia Banda 12/31/20 10:01> *Have you ever received a pneumonia vaccine?: Yes <Ofelia Banda 12/31/20 10:01> *Have you received a flu vaccine this season?: Yes <Ofelia Banda 12/31/20 10:01> Other Medical History: Reports: Arthritis <Ofelia Banda 12/31/20 10:01> Other Surgeries: Yes: CABG, Cardiac Catheterization, Colonoscopy, Pacemaker, Other <Ofelia Banda 12/31/20 10:13> Amputation: No <Ofelia Banda 12/31/20 10:01> Fractures: No <Ofelia Banda 12/31/20 10:01> - *Social History Smoking Status: Never smoker <Ofelia Banda 12/31/20 10:01> Tobacco Type: cigarettes <Ofelia Banda 12/31/20 10:01> Alcohol Intake: never <Ofelia Banda 12/31/20 10:01> Alcohol Intake Frequency:: other <Ofelia Banda 12/31/20 10:01> Substance Use Type: denies use <Ofelia Banda 12/31/20 10:01> *Occupational Status:: retired <Ofelia Banda 12/31/20 10:01> Housing: house <Ofelia Banda 12/31/20 10:01> Household Members: spouse <Ofelia Banda 12/31/20 10:01> *Travel in the last 8 weeks: None <Ofelia Banda 12/31/20 10:01> Family Hx:: Cancer, Coronary Artery Disease, Diabetes, Heart Attack <Ofelia Banda 12/31/20 10:01> Review of Systems - Constitutional Reports fatigue, Reports malaise, Reports weakness, Denies fever(s) <Ofelia Banda 12/31/20 10:13> - Eyes Denies blurry vision, Denies double vision <Ofelia Banda 12/31/20 10:13> - ENT Denies nasal congestion, Denies sore throat <Ofelia Banda 12/31/20 10:13> - *Cardiovascular Reports chest pain, Reports shortness of breath <Ofelia Banda 12/31/20 10:13> - *Respiratory Reports shortness of breath, Denies cough <Ofelia Banda 12/31/20 10:13> - *Gastrointestinal Reports abdominal pain, Reports bright, red blood in stools, Reports nausea, Denies vomiting blood, Denies vomiting <Ofelia Banda - 12/31/20 10:13> - *Genitourinary Denies difficulty urinating, Denies
--- NOTE | 2020-12-31 12:13 | HMH.CNCARD ---
History of Present Illness Consult date: 12/31/20 Requesting physician: Jensen Yates Consult reason: atrial fibrillation Chief complaint: bleeding bowels History of present illness: This is an 80-year-old white gentleman who was admitted to the hospital with bright red stools after being started on Xarelto yesterday for atrial fibrillation. He recently had an AICD placed on December 17 and had his ivelisse removed yesterday. The patient remained in atrial fibrillation while in the cardiology clinic yesterday so he was started on Xarelto for anticoagulation secondary to his risk of stroke. He states that following starting the Xarelto he had 3 episodes of bright red blood in his stools and his last stool at 3 AM filled the toilet and he decided to come into the emergency department. The patient was found to be anemic with a hemoglobin of 6.8 and hematocrit of 19.5 and he was referred for admission. The patient is being transfused with packed red blood cells. He denies any chest pain or pressure. He denies any shortness of breath or edema. He denies any fever, chills, nausea, vomiting, diarrhea, PND orthopnea. [facility] History I have reviewed the patient's past medical history: Yes Medical History: Reports:: Atrial Fibrillation, Congestive Heart Failure, Coronary Artery Disease, Diabetes Mellitus Type 2, Gastroesophageal Reflux Disease(GERD), Hyperlipidemia, Hypertension, Internal Pacemaker, Myocardial Infarction, Peripheral Artery Disease Denies:: Cancer, Diabetes Mellitus Type 1, MRSA, Seizures *Have you ever received a pneumonia vaccine?: Yes *Have you received a flu vaccine this season?: Yes Other Medical History: Reports: Arthritis Other Surgeries: Yes: CABG, Cardiac Catheterization, Colonoscopy, Pacemaker, Other Amputation: No Fractures: No - *Social History Smoking Status: Never smoker Tobacco Type: cigarettes Alcohol Intake: never Alcohol Intake Frequency:: other Substance Use Type: denies use *Occupational Status:: retired Housing: house Household Members: spouse *Travel in the last 8 weeks: None Family Hx:: Cancer, Coronary Artery Disease, Diabetes, Heart Attack Meds Home Medications Medication Instructions Recorded Confirmed Type atorvastatin 40 mg tablet 40 mg PO DAILY tab 04/24/18 12/31/20 History loratadine 10 mg tablet 10 mg PO DAILY tab 06/05/18 12/31/20 History Clopidogrel Bisulfate [Plavix 75mg 75 mg PO DAILY 06/08/20 12/31/20 History Tab] metformin 1,000 mg tablet 500 mg PO BID tab 07/07/20 12/31/20 History insulin glargine 100 unit/mL (3 0 unit SQ DIRECTED ml 12/15/20 12/31/20 History mL) subcutaneous pen Furosemide [Furosemide 40MG tAB*] 40 mg PO BIDL 12/23/20 12/31/20 History Spironolactone [Spironolactone 25 mg PO BID 12/23/20 12/31/20 History 25mg Tablet] carvediloL [Carvedilol 6.25mg Tab] 6.25 mg PO BID 12/23/20 12/31/20 History Calc/D3/Mag/Zn/[place] 1 tab PO DAILY 12/31/20 12/31/20 History [Calcium 600 mg Plus Vit D Tab] [place]-3S/Dha/Epa/Fish Oil [Fish 1 cap PO BID 12/31/20 12/31/20 History Oil 1,000 mg Softgel] Rivaroxaban [Xarelto] 20 mg PO DAILY 12/31/20 12/31/20 History Sacubitril/Valsartan [Entresto 1 tab PO BID 12/31/20 12/31/20 History 24/26mg Tablet] Allergies Allergy/AdvReac Type Severity Reaction Status Date / Time pregabalin [From Lyrica] Allergy Mild Verified 12/30/20 11:36 shellfish derived Allergy Mild Verified 12/30/20 11:36 Exam Vital signs and Labs for Last 24 Hours: Temp Pulse Resp BP Pulse Ox 98.4 F 130 H 18 88/40 L 95 12/31/20 11:10 12/31/20 11:10 12/31/20 11:10 12/31/20 11:10 12/31/20 11:10 Laboratory Results - last 24 hr 12/31/20 04:30: Hemoglobin A1c 8.9 H 12/31/20 04:30: NT-Pro-B Natriuret Pep 2990 H 12/31/20 04:30: Acetone Level None detected 12/31/20 04:30: Troponin I < 0.01 12/31/20 05:05: Stool Occult Blood Positive A 12/31/20 05:05: WBC 13.8 H, RBC 2.33 L, Hgb 6.8 L*, Hct 19.5 L*, MCV 83.7, M
[2020-12-31 12:35] LABS: POC Glucose,Bedside 210 (70-110)
--- NOTE | 2020-12-31 16:41 | HMH.GSCON ---
*Admission Date: 12/31/20 *Reason for consult:: GI bleed *History of present illness: This is an 80yo male seen in consultation from the Cardiology Service for evaluation of GI bleed. See HPI from admission H&P forwarded below. From admission H&P: Mr. Trevino is an 80-year-old male with a history of ASCVD, [place], hyperlipidemia, type 2 diabetes, and iron deficiency anemia who presented to the emergency room after multiple episodes of bright red blood in his stool. He just recently had an AICD placed on 12/17 and he was started on Xarelto yesterday after a follow-up appointment with Dr. Joy revealed episodes of atrial fib. His states he already takes Plavix and she added the Xarelto last night. He had 3 episodes of bright red blood in his stool and the 3 AM episode filled the toilet. He became very weak, dizzy, and short of breath and he was therefore brought to the emergency room for evaluation. He was found to be anemic with a hemoglobin of 6.8 and hematocrit of 19.5 and was admitted. Packed red blood cells have been ordered and cardiology has been consulted. He has had some nausea and some abdominal pain but no vomiting. He denies any fever. His potassium was also elevated. His states cardiology has recently increased his spironolactone dose to twice daily. His glucose was elevated at 439 and his renal functions were elevated as well. He had a BNP of 2990. His stool for blood was positive. He had a positive Covid IgG antibody but a negative IgM antibody. Of note, before his procedure on 12/17/2020, the patient had a positive IgM and IgG on his Covid antibody test, but a negative nasal swab. Review of Systems - Constitutional Denies fever(s) - Eyes Denies change in vision - ENT Denies difficulty swallowing - *Cardiovascular Reports lightheadedness - *Respiratory Denies cough - *Gastrointestinal Reports bright, red blood in stools - *Genitourinary Denies blood in urine - *Neurologic Reports headache(s), Reports dizziness, Reports weakness, Denies confusion, Denies seizure-like activity [facility] History Medical History: Reports:: Atrial Fibrillation, Congestive Heart Failure, Coronary Artery Disease, Diabetes Mellitus Type 2, Gastroesophageal Reflux Disease(GERD), Hyperlipidemia, Hypertension, Internal Pacemaker, Myocardial Infarction, Peripheral Artery Disease Denies:: Cancer, Diabetes Mellitus Type 1, MRSA, Seizures *Have you ever received a pneumonia vaccine?: Yes *Have you received a flu vaccine this season?: Yes Other Medical History: Reports: Arthritis Other Surgeries: Yes: CABG, Cardiac Catheterization, Colonoscopy, Pacemaker, Other Amputation: No Fractures: No - *Social History Smoking Status: Never smoker Tobacco Type: cigarettes Alcohol Intake: never Alcohol Intake Frequency:: other Substance Use Type: denies use *Occupational Status:: retired Housing: house Household Members: spouse *Travel in the last 8 weeks: None Family Hx:: Cancer, Coronary Artery Disease, Diabetes, Heart Attack Meds Home Medications Medication Instructions Recorded Confirmed Type atorvastatin 40 mg tablet 40 mg PO DAILY tab 04/24/18 12/31/20 History loratadine 10 mg tablet 10 mg PO DAILY tab 06/05/18 12/31/20 History Clopidogrel Bisulfate [Plavix 75mg 75 mg PO DAILY 06/08/20 12/31/20 History Tab] metformin 1,000 mg tablet 500 mg PO BID tab 07/07/20 12/31/20 History insulin glargine 100 unit/mL (3 0 unit SQ DIRECTED ml 12/15/20 12/31/20 History mL) subcutaneous pen Furosemide [Furosemide 40MG tAB*] 40 mg PO BIDL 12/23/20 12/31/20 History Spironolactone [Spironolactone 25 mg PO BID 12/23/20 12/31/20 History 25mg Tablet] carvediloL [Carvedilol 6.25mg Tab] 6.25 mg PO BID 12/23/20 12/31/20 History Calc/D3/Mag/Zn/Haja/Brandon/Lejunior 1 tab PO DAILY 12/31/20 12/31/20 History [Calcium 600 mg Plus Vit D Tab] [place]-3S/Dha/Epa/Fish Oil [Fish 1 cap PO BID 12/31/20 12/31/20 History Oil 1,000 mg Softg
--- NOTE | 2020-12-31 17:08 | PC.NURSE ---
DR FRANCO IS AWARE OF PT SUSTAINED HYPOTENSION AND ELEVATED HR T/O SHIFT,
[2020-12-31 17:21] LABS: Chloride 108 mmol/L (98-107); Sodium 135 mmol/L (136-145)
[2020-12-31 17:24] LABS: Blood Urea Nitrogen 52 mg/dl (9-20); Creatinine Clearance Estimated 49 mL/min (50-200); Estimated Glomerular Filt Rate 45 ml/min (>60); GFR (African American) 54 ML/MIN (>60)
[2020-12-31 17:25] LABS: Calcium 8.4 mg/dl (8.4-10.2); Carbon Dioxide 22 mmol/L (22.0-30.0); Glucose 214 mg/dl (74-100)
[2020-12-31 19:55] LABS: POC Glucose,Bedside 196 (70-110)
[2020-12-31 21:00] LABS: POC Glucose,Bedside 251 (70-110)
[2020-12-31 23:30] LABS: Hematocrit 25.5 % (42.0-52.0)
[2020-12-31 23:32] LABS: Hemoglobin 7.7 g/dL (14.1-18.0)
--- NOTE | 2020-12-31 23:40 | PC.NURSE ---
[address] TRASH EMPTIED
[2021-01-01] VITALS (26 sets, daily range): BP systolic 93–123; BP diastolic 37–78; PULSE 68–105; RESP 16–20; TEMP 36.4–37.2; O2SAT 92–100; BMI 27.6; BMI 27.4
--- NOTE | 2021-01-01 06:03 | PC.NURSE ---
0600 [address] PATIENT AWAKE SITTING UP ON SIDE OF BED . PATIENT VOICED NO NEEDS AT THIS TIME. TRASH AND LINENS EMPTIED
[2021-01-01 06:35] LABS: POC Glucose,Bedside 126 (70-110)
--- NOTE | 2021-01-01 06:52 | HMH.GSPN ---
Subjective Narrative: The patient is quite frustrated with everyone this morning. He states that he just wants to go home because nobody is doing anything . He also claims that he is starving to and nobody cares . Progress Note: A&P (1) Atrial fibrillation Status: Chronic (2) Lower gastrointestinal hemorrhage Status: Acute Assessment and plan: He has received a total of 3 units of packed red blood cells. He is fairly stable hemodynamically; however, he did not have an appropriate response to the first 2 units in terms of hemoglobin/hematocrit. Follow-up morning labs Continue to hold Xarelto and Plavix Transfuse as needed Unless emergently/urgently needed, endoscopic evaluation will be delayed until his potassium levels have normalized, his renal function is stable, and his Xarelto has been held for 48 hours. NOTE: Due to Dr. Joy's plan to hold Plavix and Xarelto for 5 days...then to restart Xarelto only...the possibility of a colonoscopy on Friday 01/05 (with Dr. Fernandez) will be discussed with the patient. (3) Hyperkalemia Status: Acute Assessment and plan: Follow-up morning labs (4) AICD (automatic cardioverter/defibrillator) present Status: Chronic (5) Hyperlipidemia Status: Chronic (6) Renal failure (ARF), acute on chronic Status: Acute (7) CAD (coronary artery disease) Status: Chronic (8) HLD (hyperlipidemia) Status: Chronic (9) HTN (hypertension) Status: Chronic (10) History of coronary artery bypass graft Status: Chronic (11) Ischemic cardiomyopathy Status: Chronic (12) PAD (peripheral artery disease) Status: Chronic (13) Type 2 diabetes mellitus Status: Chronic Exam Vital signs and Labs for Last 24 Hours: Temp Pulse Resp BP Pulse Ox 97.9 F 81 20 117/50 L 100 01/01/21 03:20 01/01/21 04:00 01/01/21 03:20 01/01/21 03:20 01/01/21 03:20 Laboratory Results - last 24 hr 12/31/20 04:30: Troponin I < 0.01 12/31/20 07:21: POC Glucose 296 H 12/31/20 07:45: Blood Type A Positive, Antibody Screen Negative, Crossmatch (AHG) See Detail 12/31/20 09:30: Blood Type Confirm A Positive 12/31/20 11:46: POC Glucose 210 H 12/31/20 17:02: Sodium 135 L, Potassium 7.0 H*, Chloride 108 H, Carbon Dioxide 22 D, Anion Gap 12.0, BUN 52 H, Creatinine 1.50 H, Estimated Creat Clear 49, Estimated GFR 45 L, Est GFR ( Amer) 54 L, Glucose 214 H D, Calcium 8.4 12/31/20 18:38: POC Glucose 196 H 12/31/20 20:30: POC Glucose 251 H 12/31/20 23:23: Hgb 7.7 L*, Hct 25.5 L 01/01/21 05:31: POC Glucose 126 H I & O for Last 24 hours: Intake & Output 12/29/20 12/30/20 12/31/20 01/01/21 11:59 11:59 11:59 11:59 Intake Total 1100 / 1100 740 / 740 Output Total 0 / 0 Balance 1100 / 1100 740 / 740 Weight 193 lb 4 oz 193 lb 4 oz - Constitutional no acute distress - *Routine Respiratory Exam Absent: respiratory distress - *Routine Cardiovascular Exam Comments: regular rate
--- NOTE | 2021-01-01 07:26 | PC.WOUNDNOTE ---
Wound Location: Length:R Upper BAck Width:3 cm, circum Inflammation/swelling Y/N: Y Pain and/or tenderness Y/N: Exudate: Serosanguinous Color: Red Amount: Small Odor Y/N:
--- NOTE | 2021-01-01 07:37 | PC.NURSE ---
Pt. dizzy and unsteady with ambulation. Pt. had 2 episodes of loose bm. Abscess noted to back of r shoulder, pictures on chart.
--- NOTE | 2021-01-01 08:43 | HMH.ACPN2 ---
<Ofelia Banda - Last Filed: 01/01/21 08:43> Internal Medicine - PN: Subj *Date: 01/01/21 *Time: 08:43 Interval history: Patient states he feels a little bit better today. He is still having blood in his stool, but it is less than it was yesterday. His H&H is 7.7 and 25.5 this morning. He has had 3 units of blood. Cardiology did see the patient and Dr. Joy wanted to continue to hold his aspirin, Plavix, and Xarelto for 5 days and after 5 days restart him on Xarelto only. They restarted his carvedilol and also started him on IV digoxin due to his atrial fib with rates in the 140s. Surgery was also consulted for his GI bleed and agreed with transfusion and serial H&H's. He felt the patient would need an EGD and a colonoscopy at some point. Exam Vital signs and Labs for Last 24 Hours: Temp Pulse Resp BP Pulse Ox 98.1 F 101 H 18 98/75 L 95 01/01/21 07:37 01/01/21 07:37 01/01/21 07:37 01/01/21 07:37 01/01/21 07:37 Laboratory Results - last 24 hr 12/31/20 07:45: Blood Type A Positive, Antibody Screen Negative, Crossmatch (AHG) See Detail 12/31/20 09:30: Blood Type Confirm A Positive 12/31/20 11:46: POC Glucose 210 H 12/31/20 17:02: Sodium 135 L, Potassium 7.0 H*, Chloride 108 H, Carbon Dioxide 22 D, Anion Gap 12.0, BUN 52 H, Creatinine 1.50 H, Estimated Creat Clear 49, Estimated GFR 45 L, Est GFR ( Amer) 54 L, Glucose 214 H D, Calcium 8.4 12/31/20 18:38: POC Glucose 196 H 12/31/20 20:30: POC Glucose 251 H 12/31/20 23:23: Hgb 7.7 L*, Hct 25.5 L 01/01/21 05:31: POC Glucose 126 H I & O for Last 24 hours: Intake & Output 12/29/20 12/30/20 12/31/20 01/01/21 11:59 11:59 11:59 11:59 Intake Total 1100 / 1100 740 / 740 Output Total 0 / 0 Balance 1100 / 1100 740 / 740 Weight 193 lb 4 oz 193 lb 4 oz - Constitutional no acute distress - *Routine Respiratory Exam Present: CTA bilaterally - *Routine Cardiovascular Exam Present: irregularly irregular - *Routine Abdominal Exam Present: soft, normoactive bowel sounds. Absent: tenderness - *Routine Extremities Exam Present: edema (trace). Absent: cyanosis, clubbing - *Routine Skin Exam Present: pallor, warm. Absent: rash - *Routine Neurological Exam Present: alert, oriented X3 Assessment and Plan (1) Lower gastrointestinal hemorrhage Status: Acute Category: Medical Code(s): K92.2 - Gastrointestinal hemorrhage, unspecified (2) Atrial fibrillation Status: Chronic Qualifiers: Atrial fibrillation type: unspecified chronic Qualified Code(s): I48.20 - Chronic atrial fibrillation, unspecified Category: Medical Code(s): I48.91 - Unspecified atrial fibrillation (3) Hyperkalemia Status: Acute Category: Medical Code(s): E87.5 - Hyperkalemia (4) AICD (automatic cardioverter/defibrillator) present Status: Chronic Category: Surgical Code(s): Z95.810 - Presence of automatic (implantable) cardiac defibrillator (5) Hyperlipidemia Status: Chronic Category: Medical Code(s): E78.5 - Hyperlipidemia, unspecified (6) Renal failure (ARF), acute on chronic Status: Acute Qualifiers: Acute renal failure type: unspecified Chronic kidney disease stage: unspecified stage Qualified Code(s): N17.9 - Acute kidney failure, unspecified; N18.9 - Chronic kidney disease, unspecified Category: Medical Code(s): N17.9 - Acute kidney failure, unspecified; N18.9 - Chronic kidney disease, unspecified (7) CAD (coronary artery disease) Status: Chronic Qualifiers: Coronary Disease-Associated Artery/Lesion type: [place] artery [place] vs. transplanted heart: [place] heart Associated angina: without angina Qualified Code(s): I25.10 - Atherosclerotic heart disease of [place] coronary artery without angina pectoris Category: Medical Code(s): I25.10 - Atherosclerotic heart disease of [place] coronary artery without angina pectoris (8) HLD (hyperlipidemia) Status: Chronic Qualifiers:
--- NOTE | 2021-01-01 09:06 | PC.NURSE ---
TO THIS POINT THIS AM PT HAS REFUSED LAB DRAW AND OTHER ASPECTS OF CARE, SPOKE WITH WHO SAID SHE WOULD BE IN TO TALK WITH HIM AND TALKED WITH DR FRANCO TO INFORM HIM OF SOTUATION, WILL CONTINUE TO MONITOR.
[2021-01-01 09:32] LABS: Basophils # 0.1 K/mm3 (0-0.2); Basophils % 0.5 % (0.1-2.0); Eosinophils # 0.2 K/mm3 (0.0-0.4); Eosinophils % 1.5 % (0.1-12.0); Hematocrit 27.6 % (42.0-52.0); Lymphocytes % 15.4 % (10-50); Mean Corpuscular HGB Conc 31.1 g/dL (31.8-35.4); Mean Corpuscular Hemoglobin 25.7 pg (27.0-31.2); Mean Corpuscular Volume 82.7 fl (80-94); Mean Platelet Volume 7.7 fl (7.4-10.4); Monocytes # 1.1 K/mm3 (0.1-1.0); Monocytes % 8.7 % (1.7-9.3); Neutrophils # 9.7 K/mm3 (1.8-7.8); Platelet Count 169 K/mm3 (142-424); Red Blood Count 3.33 M/mm3 (4.60-6.20); Red Cell Distribution Width 17.5 % (11.5-17.5); White Blood Count 13.1 K/mm3 (4.8-10.8)
[2021-01-01 09:33] LABS: Hemoglobin 8.6 g/dL (14.1-18.0)
[2021-01-01 09:38] LABS: Chloride 108 mmol/L (98-107); Potassium 3.9 mmoL/L (3.5-5.1); Sodium 138 mmol/L (136-145)
[2021-01-01 09:41] LABS: Anion Gap 10.9 mEq/L (5-15); Blood Urea Nitrogen 47 mg/dl (9-20); Calcium 8.4 mg/dl (8.4-10.2); Carbon Dioxide 23 mmol/L (22.0-30.0); Creatinine Clearance Estimated 56 mL/min (50-200); Estimated Glomerular Filt Rate 53 ml/min (>60); GFR (African American) 64 ML/MIN (>60); Glucose 135 mg/dl (74-100)
--- NOTE | 2021-01-01 13:25 | HMH.PNCARD ---
Subjective Date: 01/01/21 Time: 13:25 Principal diagnosis: GI bleed, Hyperkalemia, A. fib, CAD Interval history: 80 yo WM in bedside chair eating lunch in NAD. No further bleeding. Dr. Gutierrez out of town Dr. Lopez saw pt today with no plans for endoscopy unless needed emergently. Hgb 8.6 today K 3.9 today Exam Vital signs and Labs for Last 24 Hours: Temp Pulse Resp BP Pulse Ox 98.2 F 69 16 97/49 L 92 L 01/01/21 12:00 01/01/21 12:00 01/01/21 12:00 01/01/21 12:00 01/01/21 12:00 Laboratory Results - last 24 hr 12/31/20 07:45: Blood Type A Positive, Antibody Screen Negative, Crossmatch (AHG) See Detail 12/31/20 17:02: Sodium 135 L, Potassium 7.0 H*, Chloride 108 H, Carbon Dioxide 22 D, Anion Gap 12.0, BUN 52 H, Creatinine 1.50 H, Estimated Creat Clear 49, Estimated GFR 45 L, Est GFR ( Amer) 54 L, Glucose 214 H D, Calcium 8.4 12/31/20 18:38: POC Glucose 196 H 12/31/20 20:30: POC Glucose 251 H 12/31/20 23:23: Hgb 7.7 L*, Hct 25.5 L 01/01/21 05:31: POC Glucose 126 H 01/01/21 09:15: WBC 13.1 H, RBC 3.33 L D, Hgb 8.6 L D, Hct 27.6 L, MCV 82.7, MCH 25.7 L, MCHC 31.1 L, RDW 17.5, Plt Count 169 D, MPV 7.7, Neut % (Auto) 74.0, Lymph % (Auto) 15.4, [place] % (Auto) 8.7, Eos % (Auto) 1.5, Baso % (Auto) 0.5, Neut # (Auto) 9.7 H, Lymph # (Auto) 2.0, [place] # (Auto) 1.1 H, Eos # (Auto) 0.2, Baso # (Auto) 0.1 01/01/21 09:15: Sodium 138, Potassium 3.9 D, Chloride 108 H, Carbon Dioxide 23, Anion Gap 10.9, BUN 47 H, Creatinine 1.30 H, Estimated Creat Clear 56, Estimated GFR 53 L, Est GFR ( Amer) 64, Glucose 135 H D, Calcium 8.4 I & O for Last 24 hours: Intake & Output 12/30/20 12/31/20 01/01/21 01/02/21 11:59 11:59 11:59 11:59 Intake Total 1100 / 1100 740 / 740 Output Total 0 / 0 Balance 1100 / 1100 740 / 740 Weight 193 lb 4 oz 191 lb 12.835 oz - Constitutional no acute distress - *Routine HEENT Exam Head: Present: normocephalic Eye: Present: EOMI, PERRL ENT: Present: mucous membranes moist - *Routine Neck Exam Present: supple. Absent: lymphadenopathy - *Routine Respiratory Exam Present: CTA bilaterally - *Routine Cardiovascular Exam Present: RRR - *Routine Abdominal Exam Present: soft, normoactive bowel sounds. Absent: tenderness - *Routine Extremities Exam Absent: cyanosis, clubbing, edema - *Routine Skin Exam Present: warm. Absent: rash - *Routine Neurological Exam Present: alert, oriented X3 Progress Note: A&P (1) Lower gastrointestinal hemorrhage Status: Acute Assessment and plan: Continue PPI. Recommend transfuse to get Hgb >10 Pt relates GI bleed in past on coumadin. (2) Atrial fibrillation Status: Chronic Assessment and plan: Rate controlled on combo of digoxin and coreg. (3) Hyperkalemia Status: Acute Assessment and plan: resolved. (4) AICD (automatic cardioverter/defibrillator) present Status: Chronic (5) Hyperlipidemia Status: Chronic Assessment and plan: continue statin therapy (6) Renal failure (ARF), acute on chronic Status: Acute Assessment and plan: Improved. (7) CAD (coronary artery disease) Status: Chronic Assessment and plan: clinically stable. No ASA or plavix due to GI bleed (8) HTN (hypertension) Status: Chronic (9) History of coronary artery bypass graft Status: Chronic (10) Ischemic cardiomyopathy Status: Chronic Assessment and plan: Continue coreg. No AMANDA or ARB due to low BP. (11) PAD (peripheral artery disease) Status: Chronic (12) Type 2 diabetes mellitus Status: Chronic (13) Skin ulcer Status: Acute Assessment and Plan for All Diagnoses:: 1. Transfuse to Hgb >10. 2. Will try to obtain CABG report from [facility] in 1993 to see if LA appendage was ligated. If not then will refer for consideration of Watchman device as outpatient. 3. If remains stable without recurrent GI bleed, then anticipate home tomorrow. 4. follow up in our office
[2021-01-01 17:21] LABS: POC Glucose,Bedside 133 (70-110)
[2021-01-01 18:10] LABS: POC Glucose,Bedside 328 (70-110)
[2021-01-01 18:36] LABS: Basophils # 0.1 K/mm3 (0-0.2); Basophils % 0.8 % (0.1-2.0); Eosinophils # 0.3 K/mm3 (0.0-0.4); Eosinophils % 2.3 % (0.1-12.0); Hematocrit 31.6 % (42.0-52.0); Lymphocytes # 2.2 K/mm3 (0.7-4.5); Lymphocytes % 17.1 % (10-50); Mean Corpuscular HGB Conc 32.5 g/dL (31.8-35.4); Mean Corpuscular Hemoglobin 27.3 pg (27.0-31.2); Mean Corpuscular Volume 84.1 fl (80-94); Monocytes # 0.9 K/mm3 (0.1-1.0); Neutrophils # 9.3 K/mm3 (1.8-7.8); Neutrophils % 72.8 % (37.0-80.0); Platelet Count 182 K/mm3 (142-424); Red Blood Count 3.76 M/mm3 (4.60-6.20); Red Cell Distribution Width 17.3 % (11.5-17.5); White Blood Count 12.7 K/mm3 (4.8-10.8)
[2021-01-01 18:48] LABS: Hemoglobin 10.3 g/dL (14.1-18.0)
--- NOTE | 2021-01-01 19:44 | PC.NURSE ---
pt discharged at 1942
--- NOTE | 2021-01-01 20:45 | PC.NURSE ---
DR FRANCO AND THIS NURSE MADE PT AWARE OF RISKS OF LEAVING TONIGHT BUT PT REFUSED TO STAY.
--- NOTE | 2021-01-02 11:04 | HMH.DCSUM ---
General - General Admission date:: 12/31/20 <Jensen Yates - 01/12/21 14:47> 12/31/20 <Ofelia Banda - 01/02/21 11:11> Discharge date: 01/01/21 <Ofelia Banda - 01/02/21 11:11> HPI HPI: Mr. Trevino is an 80-year-old male with a history of ASCVD, [place], hyperlipidemia, type 2 diabetes, and iron deficiency anemia who presented to the emergency room after multiple episodes of bright red blood in his stool. He just recently had an AICD placed on 12/17 and he was started on Xarelto yesterday after a follow-up appointment with Dr. Joy revealed episodes of atrial fib. His states he already takes Plavix and she added the Xarelto last night. He had 3 episodes of bright red blood in his stool and the 3 AM episode filled the toilet. He became very weak, dizzy, and short of breath and he was therefore brought to the emergency room for evaluation. He was found to be anemic with a hemoglobin of 6.8 and hematocrit of 19.5 and was admitted. Packed red blood cells have been ordered and cardiology has been consulted. He has had some nausea and some abdominal pain but no vomiting. He denies any fever. His potassium was also elevated. His states cardiology has recently increased his spironolactone dose to twice daily. His glucose was elevated at 439 and his renal functions were elevated as well. He had a BNP of 2990. His stool for blood was positive. He had a positive Covid IgG antibody but a negative IgM antibody. Of note, before his procedure on 12/17/2020, the patient had a positive IgM and IgG on his Covid antibody test, but a negative nasal swab. <Ofelia Banda - 01/02/21 11:11> Hospital Course Hospital Course: The patient's abdominal pelvic CT showed possible enterocolitis along with cholelithiasis and other nonacute findings. He was admitted and started on IV Protonix and kept n.p.o. He received 3 units of packed red blood cells. His heart rate was in the 140s and he was therefore given a one-time dose of carvedilol 6.25 mg and cardiology was consulted. His Xarelto, Plavix, and aspirin were all stopped due to his GI bleed and anemia. Dr. Joy wanted to continue to hold these medications and then after 5 days restart him on Xarelto. He felt if his bleeding was to recur he should be sent to [facility] for placement of a watchman's device. His carvedilol was restarted due to his atrial fib and elevated heart rate. He was also started on some IV digoxin. Surgery was consulted due to his GI bleed. He was seen by Dr. Lopez who agreed with transfusion and serial H&H's. He felt he should have an EGD when his hyperkalemia resolved as well as a colonoscopy in the near future. The patient's potassium did normalize after he was given Kayexalate and his H&H improved with transfusion of 3 units to 8.6 and 27.6. He did receive one additional unit and his H&H was 10.3 and 31.6. He began having less blood in his stool and wanted to be discharged home. He did complain of a lesion on his back which Dr. Yates examined. He suspected it was a cancer would need wide excision and skin grafting. The patient became very frustrated and agitated with being in the hospital. He stated he was leaving and was therefore discharged once he received his last unit of blood. Cardiology will consider a watchman device as an outpatient. He will need to follow-up with cardiology, surgery, and Dr. Yates. <Ofelia Banda - 01/02/21 11:11> Objective Vital signs: Temp Pulse Resp BP Pulse Ox 98.9 F 87 18 94/53 L 100 01/01/21 16:55 01/01/21 16:55 01/01/21 16:55 01/01/21 16:55 01/01/21 16:55 <Jensen Yates - 01/12/21 14:47> Temp Pulse Resp BP Pulse Ox 98.9 F 87 18 94/53 L 100 01/01/21 16:55 01/01/21 16:55 01/01/21 16:55 01/01/21 16:55 01/01/21 16:55 <Ofelia Banda - 01/02/21 11:11> Narrative: - Constitutional no acute distress - *Routine Respiratory Exam Present: CTA b
== END 2021-01-01 19:15 | disposition home or self-care (01) | DRG 378 ==
LOC: ER 05:01 → 2ND 07:25
PROVIDERS: Nurse Practitioner Family; Admitting Provider Family Medicine; Emergency Provider Emergency Medicine; PCP Family Medicine; Visit Provider Family Medicine
DX: K92.2 Gastrointestinal hemorrhage, unspecified (principal); N17.9 Acute kidney failure, unspecified; I13.0 Hypertensive heart and chronic kidney disease with heart failure and stage 1 through stage 4 chronic kidney disease, or unspecified chronic kidney disease; I50.22 Chronic systolic (congestive) heart failure; N18.9 Chronic kidney disease, unspecified; I48.91 Unspecified atrial fibrillation; Z95.810 Presence of automatic (implantable) cardiac defibrillator; Z95.1 Presence of aortocoronary bypass graft; I25.5 Ischemic cardiomyopathy; Z86.16 Personal history of COVID-19; I25.10 Atherosclerotic heart disease of native coronary artery without angina pectoris; Z79.01 Long term (current) use of anticoagulants; Z79.02 Long term (current) use of antithrombotics/antiplatelets; Z79.4 Long term (current) use of insulin; Z79.899 Other long term (current) drug therapy; Z88.8 Allergy status to other drugs, medicaments and biological substances; E11.22 Type 2 diabetes mellitus with diabetic chronic kidney disease; D50.9 Iron deficiency anemia, unspecified
CPT/HCPCS: 36415; 74176; 80048; 80053; 82009; 82272; 82962; 83036; 83880; 84145; 84484; 85014; 85018; 85025; 85651; 86140; 86328; 86850; 93005; 96365; 96375; 99284; G0328; J2405; P9016

== ENCOUNTER → 2021-01-29 07:23 | Outpatient (CLI) | payer MEDICARE, SELFPAY ==
[2021-01-29 08:44] LABS: Basophils # 0.1 K/mm3 (0-0.2); Basophils % 0.9 % (0.1-2.0); Eosinophils # 0.4 K/mm3 (0.0-0.4); Eosinophils % 4.6 % (0.1-12.0); Lymphocytes % 22.2 % (10-50); Mean Corpuscular HGB Conc 29.5 g/dL (31.8-35.4); Mean Platelet Volume 8.2 fl (7.4-10.4); Monocytes # 0.7 K/mm3 (0.1-1.0); Monocytes % 7.8 % (1.7-9.3); Neutrophils # 5.8 K/mm3 (1.8-7.8); Neutrophils % 64.5 % (37.0-80.0); Platelet Count 295 K/mm3 (142-424); Red Blood Count 2.69 M/mm3 (4.60-6.20); Reticulocyte % (Auto) 6.3 % (0.9-3.2)
[2021-01-29 09:06] LABS: Chloride 107 mmol/L (98-107); Potassium 4.2 mmoL/L (3.5-5.1); Sodium 141 mmol/L (136-145)
[2021-01-29 09:08] LABS: Alanine Aminotransferase 13 U/L (12-78); Alkaline Phosphatase 79 U/L (38-126); Aspartate Amino Transferase 21 U/L (17-59); Bilirubin,Total 0.4 mg/dl (0.2-1.3); Blood Urea Nitrogen 24 mg/dl (9-20); Estimated Glomerular Filt Rate 72 ml/min (>60); GFR (African American) 87 ML/MIN (>60)
[2021-01-29 09:09] LABS: Albumin Level 3.6 g/dl (3.5-5.0); Albumin/Globulin Ratio 1.5 (1.1-1.8); Anion Gap 13.2 mEq/L (5-15); Calcium 9.3 mg/dl (8.4-10.2); Carbon Dioxide 25 mmol/L (22.0-30.0); Chol/HDL Ratio 3.8 (1-3.5); Cholesterol 100 mg/dl (140-200); Globulin 2.4 g/dL (1.3-3.2); Glucose 120 mg/dl (74-100); HDL Cholesterol 26 mg/dl (40-60); Triglycerides 174 mg/dl (30-150); VLDL Cholesterol 35 mg/dL (0-40)
[2021-01-29 09:18] LABS: Hematocrit 23.7 % (42.0-52.0)
[2021-01-29 09:20] LABS: Direct LDL Cholesterol 48.49 mg/dL (100-129)
== END ==
PROVIDERS: Visit Provider Family Medicine
DX: I50.9 Heart failure, unspecified (principal)
CPT/HCPCS: 36415; 80053; 80061; 85025; 85044; 86850

== ENCOUNTER 2021-01-30 08:40 | Outpatient (CLI) | payer MEDICARE, SELFPAY ==
[2021-01-30] VITALS (20 sets, daily range): BP systolic 92–129; BP diastolic 38–76; PULSE 61–101; RESP 15–19; TEMP 36.4–36.7; O2SAT 99–100; BMI 27.6
--- NOTE | 2021-01-30 08:50 | PC.NURSE ---
order to transfuse 2 units prbc. pt was typed & screened yesterday.
--- NOTE | 2021-01-30 11:35 | PC.NURSE ---
blood consent signed at [id number]
[2021-01-30 15:07] LABS: Hematocrit 29.1 % (42.0-52.0); Hemoglobin 8.3 g/dL (14.1-18.0)
--- NOTE | 2021-01-30 15:32 | PC.NURSE ---
pt left floor at 1525
== END 2021-01-30 15:25 | disposition home or self-care (01) ==
PROVIDERS: PCP Family Medicine; Visit Provider Family Medicine
DX: D50.0 Iron deficiency anemia secondary to blood loss (chronic) (principal)
CPT/HCPCS: 36415; 36430; 85014; 85018; P9016

== ENCOUNTER → 2021-02-23 07:30 | Outpatient (CLI) | payer MEDICARE, SELFPAY ==
[2021-02-23 07:47] LABS: Basophils # 0.1 K/mm3 (0-0.2); Basophils % 0.8 % (0.1-2.0); Eosinophils # 0.4 K/mm3 (0.0-0.4); Hematocrit 26.4 % (42.0-52.0); Lymphocytes # 1.8 K/mm3 (0.7-4.5); Lymphocytes % 21.5 % (10-50); Mean Corpuscular HGB Conc 29.2 g/dL (31.8-35.4); Mean Corpuscular Hemoglobin 25.6 pg (27.0-31.2); Mean Corpuscular Volume 87.5 fl (80-94); Mean Platelet Volume 9.6 fl (7.4-10.4); Monocytes # 0.6 K/mm3 (0.1-1.0); Monocytes % 7.4 % (1.7-9.3); Neutrophils # 5.4 K/mm3 (1.8-7.8); Neutrophils % 65.4 % (37.0-80.0); Platelet Count 246 K/mm3 (142-424); Red Blood Count 3.01 M/mm3 (4.60-6.20); White Blood Count 8.3 K/mm3 (4.8-10.8)
[2021-02-23 07:57] LABS: Hemoglobin 8.1 g/dL (14.1-18.0)
== END ==
PROVIDERS: Visit Provider Family Medicine
DX: I10 Essential (primary) hypertension (principal)
CPT/HCPCS: 36415; 85025

== ENCOUNTER → 2021-03-19 08:52 | Outpatient (CLI) | payer MEDICARE, SELFPAY | PROVIDERS: PCP Family Medicine; Visit Provider Physician Assistant Medical | DX: Z01.812 Encounter for preprocedural laboratory examination (principal); Z11.52 Encounter for screening for COVID-19 | CPT/HCPCS: U0003 ==

== ENCOUNTER → 2021-04-13 13:45 | Outpatient (CLI) | payer MEDICARE, SELFPAY ==
[2021-04-13 14:18] LABS: Basophils # 0.1 K/mm3 (0-0.2); Basophils % 1.5 % (0.1-2.0); Eosinophils # 0.3 K/mm3 (0.0-0.4); Eosinophils % 4.1 % (0.1-12.0); Hematocrit 28.2 % (42.0-52.0); Lymphocytes # 1.9 K/mm3 (0.7-4.5); Mean Corpuscular HGB Conc 27.4 g/dL (31.8-35.4); Mean Corpuscular Hemoglobin 23.8 pg (27.0-31.2); Mean Corpuscular Volume 86.9 fl (80-94); Mean Platelet Volume 7.7 fl (7.4-10.4); Monocytes # 0.5 K/mm3 (0.1-1.0); Monocytes % 6.2 % (1.7-9.3); Neutrophils % 64.2 % (37.0-80.0); Platelet Count 289 K/mm3 (142-424); Red Blood Count 3.25 M/mm3 (4.60-6.20); White Blood Count 7.7 K/mm3 (4.8-10.8)
[2021-04-13 14:20] LABS: Hemoglobin 7.7 g/dL (14.1-18.0)
[2021-04-13 14:59] LABS: Chloride 104 mmol/L (98-107); Potassium 4.7 mmoL/L (3.5-5.1); Sodium 140 mmol/L (136-145)
[2021-04-13 15:02] LABS: Anion Gap 12.7 mEq/L (5-15); Blood Urea Nitrogen 19 mg/dl (9-20); Carbon Dioxide 28 mmol/L (22.0-30.0); Estimated Glomerular Filt Rate 81 ml/min (>60); GFR (African American) 98 ML/MIN (>60); Glucose 165 mg/dl (74-100)
== END ==
PROVIDERS: Visit Provider Physician Assistant
DX: D64.9 Anemia, unspecified (principal); I48.20 Chronic atrial fibrillation, unspecified; E11.69 Type 2 diabetes mellitus with other specified complication; E78.49 Other hyperlipidemia; I11.9 Hypertensive heart disease without heart failure; I25.10 Atherosclerotic heart disease of native coronary artery without angina pectoris; R06.00 Dyspnea, unspecified; Z79.84 Long term (current) use of oral hypoglycemic drugs
CPT/HCPCS: 36415; 80048; 85025; 86850

== ENCOUNTER 2021-04-14 08:55 | Outpatient (CLI) | payer MEDICARE, SELFPAY ==
[2021-04-14] VITALS (21 sets, daily range): BP systolic 91–134; BP diastolic 41–73; PULSE 58–82; RESP 18; TEMP 36.1–37.1; O2SAT 96–98; BMI 29.7
[2021-04-14 15:50] LABS: Hemoglobin 8.9 g/dL (14.1-18.0)
== END 2021-04-14 15:41 | disposition home or self-care (01) ==
LOC: INF 09:00
PROVIDERS: Visit Provider Family Medicine
DX: D64.9 Anemia, unspecified (principal)
CPT/HCPCS: 36430; 85014; 85018; P9016

== ENCOUNTER → 2021-05-13 08:11 | Outpatient (CLI) | payer MEDICARE, SELFPAY ==
[2021-05-13 09:11] LABS: Basophils # 0.1 K/mm3 (0-0.2); Basophils % 1.5 % (0.1-2.0); Eosinophils # 0.5 K/mm3 (0.0-0.4); Eosinophils % 4.9 % (0.1-12.0); Hematocrit 29.9 % (42.0-52.0); Hemoglobin 8.9 g/dL (14.1-18.0); Lymphocytes # 2.1 K/mm3 (0.7-4.5); Lymphocytes % 22.7 % (10-50); Mean Corpuscular HGB Conc 29.7 g/dL (31.8-35.4); Mean Corpuscular Hemoglobin 25.3 pg (27.0-31.2); Mean Corpuscular Volume 85.4 fl (80-94); Mean Platelet Volume 7.9 fl (7.4-10.4); Monocytes # 0.7 K/mm3 (0.1-1.0); Neutrophils # 5.8 K/mm3 (1.8-7.8); Neutrophils % 62.9 % (37.0-80.0); Platelet Count 265 K/mm3 (142-424); Red Blood Count 3.51 M/mm3 (4.60-6.20); Red Cell Distribution Width 15.3 % (11.5-17.5); White Blood Count 9.3 K/mm3 (4.8-10.8)
[2021-05-13 10:43] LABS: Anion Gap 10.5 mEq/L (5-15); Blood Urea Nitrogen 21 mg/dl (9-20); Calcium 9.1 mg/dl (8.4-10.2); Carbon Dioxide 30 mmol/L (22.0-30.0); Chloride 105 mmol/L (98-107); Estimated Glomerular Filt Rate 81 ml/min (>60); GFR (African American) 98 ML/MIN (>60); Glucose 165 mg/dl (74-100); Potassium 4.5 mmoL/L (3.5-5.1); Sodium 141 mmol/L (136-145)
== END ==
PROVIDERS: Visit Provider Physician Assistant
DX: Z51.81 Encounter for therapeutic drug level monitoring (principal); Z79.899 Other long term (current) drug therapy; K92.2 Gastrointestinal hemorrhage, unspecified
CPT/HCPCS: 36415; 80048; 85025

== ENCOUNTER → 2021-06-14 11:20 | Outpatient (CLI) | payer MEDICARE, SELFPAY ==
[2021-06-14 12:34] LABS: Basophils # 0.1 K/mm3 (0-0.2); Eosinophils # 0.3 K/mm3 (0.0-0.4); Hematocrit 27.4 % (42.0-52.0); Lymphocytes # 1.8 K/mm3 (0.7-4.5); Lymphocytes % 19.8 % (10-50); Mean Corpuscular HGB Conc 27.9 g/dL (31.8-35.4); Mean Corpuscular Hemoglobin 23.5 pg (27.0-31.2); Mean Corpuscular Volume 84.2 fl (80-94); Mean Platelet Volume 8.7 fl (7.4-10.4); Monocytes # 0.7 K/mm3 (0.1-1.0); Monocytes % 7.7 % (1.7-9.3); Neutrophils # 6.3 K/mm3 (1.8-7.8); Neutrophils % 68.5 % (37.0-80.0); Platelet Count 280 K/mm3 (142-424); Red Blood Count 3.25 M/mm3 (4.60-6.20); White Blood Count 9.2 K/mm3 (4.8-10.8)
[2021-06-14 12:48] LABS: Hemoglobin 7.6 g/dL (14.1-18.0)
[2021-06-14 13:04] LABS: Anion Gap 12.8 mEq/L (5-15); Blood Urea Nitrogen 16 mg/dl (9-20); Calcium 8.5 mg/dl (8.4-10.2); Carbon Dioxide 28 mmol/L (22.0-30.0); Chloride 104 mmol/L (98-107); Estimated Glomerular Filt Rate 81 ml/min (>60); GFR (African American) 98 ML/MIN (>60); Glucose 166 mg/dl (74-100); Potassium 4.8 mmoL/L (3.5-5.1); Sodium 140 mmol/L (136-145)
== END ==
PROVIDERS: Visit Provider Physician Assistant
DX: K92.2 Gastrointestinal hemorrhage, unspecified (principal); E11.9 Type 2 diabetes mellitus without complications; E78.5 Hyperlipidemia, unspecified; I25.10 Atherosclerotic heart disease of native coronary artery without angina pectoris; I25.5 Ischemic cardiomyopathy; I48.91 Unspecified atrial fibrillation; I50.20 Unspecified systolic (congestive) heart failure; I73.9 Peripheral vascular disease, unspecified; R06.00 Dyspnea, unspecified; R94.31 Abnormal electrocardiogram [ECG] [EKG]; Z95.1 Presence of aortocoronary bypass graft; Z95.810 Presence of automatic (implantable) cardiac defibrillator; I11.0 Hypertensive heart disease with heart failure; Z79.4 Long term (current) use of insulin
CPT/HCPCS: 36415; 80048; 85025

== ENCOUNTER → 2021-06-15 14:36 | Outpatient (CLI) | payer MEDICARE, SELFPAY ==
[2021-06-15 15:22] LABS: Basophils # 0.1 K/mm3 (0-0.2); Basophils % 0.9 % (0.1-2.0); Eosinophils # 0.3 K/mm3 (0.0-0.4); Eosinophils % 2.9 % (0.1-12.0); Hematocrit 27.3 % (42.0-52.0); Lymphocytes # 1.7 K/mm3 (0.7-4.5); Lymphocytes % 17.6 % (10-50); Mean Corpuscular HGB Conc 28.2 g/dL (31.8-35.4); Mean Corpuscular Hemoglobin 23.3 pg (27.0-31.2); Mean Corpuscular Volume 82.9 fl (80-94); Mean Platelet Volume 8.6 fl (7.4-10.4); Monocytes # 0.7 K/mm3 (0.1-1.0); Monocytes % 6.9 % (1.7-9.3); Neutrophils # 6.8 K/mm3 (1.8-7.8); Neutrophils % 71.7 % (37.0-80.0); Platelet Count 270 K/mm3 (142-424); Red Cell Distribution Width 16.5 % (11.5-17.5); White Blood Count 9.5 K/mm3 (4.8-10.8)
[2021-06-15 15:31] LABS: Hemoglobin 7.7 g/dL (14.1-18.0)
== END ==
PROVIDERS: Visit Provider Family Medicine
DX: D64.9 Anemia, unspecified (principal)
CPT/HCPCS: 36415; 85025; 86850

== ENCOUNTER 2021-06-16 09:11 | Outpatient (CLI) | payer MEDICARE, SELFPAY ==
[2021-06-16] VITALS (20 sets, daily range): BP systolic 97–137; BP diastolic 41–69; PULSE 59–80; RESP 16–18; TEMP 36.2–36.9; O2SAT 100; BMI 29.2
--- NOTE | 2021-06-16 12:05 | PC.NURSE ---
1205-went to retrieve 2nd unit of prbcs in lab; at that point it was realized by jessica and hussein that only one unit was typed and crossed d/t order being put in incorrectly by outpatient lab yesterday. jessica started 2nd unit to be typed and crossed at that time and would notify lavonne light in infusion when ready.
--- NOTE | 2021-06-16 12:17 | PC.NURSE ---
1217-notified by jessica in lab that 2nd unit of prbcs was ready to be picked up.
[2021-06-16 15:25] LABS: Hematocrit 32.1 % (42.0-52.0); Hemoglobin 9.3 g/dL (14.1-18.0)
== END 2021-06-16 15:18 | disposition home or self-care (01) ==
LOC: INF 09:11
PROVIDERS: PCP Family Medicine; Visit Provider Family Medicine
DX: D64.9 Anemia, unspecified (principal)
CPT/HCPCS: 36430; 85014; 85018; P9016

== ENCOUNTER → 2021-07-30 08:13 | Outpatient (CLI) | payer MEDICARE, SELFPAY ==
[2021-07-30 08:49] LABS: Hemoglobin 7.8 g/dL (14.1-18.0)
== END ==
PROVIDERS: Visit Provider Family Medicine
DX: D50.8 Other iron deficiency anemias (principal)
CPT/HCPCS: 36415; 85018

== ENCOUNTER → 2021-08-07 07:49 | Outpatient (CLI) | payer MEDICARE, SELFPAY | PROVIDERS: Visit Provider Family Medicine | DX: D50.0 Iron deficiency anemia secondary to blood loss (chronic) (principal) | CPT/HCPCS: 36415; 86850 ==

== ENCOUNTER 2021-08-09 08:54 | Outpatient (CLI) | payer MEDICARE, SELFPAY ==
[2021-08-09] VITALS (21 sets, daily range): BP systolic 102–158; BP diastolic 48–86; PULSE 60–81; RESP 18; TEMP 36.1–36.8; BMI 28.5
[2021-08-09 16:12] LABS: Hematocrit 35.8 % (42.0-52.0); Hemoglobin 10.4 g/dL (14.1-18.0)
== END 2021-08-09 15:00 | disposition home or self-care (01) ==
LOC: INF 08:56
PROVIDERS: PCP Family Medicine; Visit Provider Family Medicine
DX: D50.0 Iron deficiency anemia secondary to blood loss (chronic) (principal)
CPT/HCPCS: 36430; 85014; 85018; P9016

== ENCOUNTER → 2021-08-10 07:30 | Outpatient (CLI) | payer MEDICARE, SELFPAY ==
[2021-08-10 07:52] LABS: Basophils # 0.1 K/mm3 (0-0.2); Basophils % 0.9 % (0.1-2.0); Eosinophils # 0.4 K/mm3 (0.0-0.4); Eosinophils % 3.2 % (0.1-12.0); Hemoglobin 10.7 g/dL (14.1-18.0); Lymphocytes # 1.3 K/mm3 (0.7-4.5); Lymphocytes % 11.6 % (10-50); Mean Corpuscular HGB Conc 28.3 g/dL (31.8-35.4); Mean Corpuscular Volume 91.8 fl (80-94); Mean Platelet Volume 8.5 fl (7.4-10.4); Monocytes # 0.7 K/mm3 (0.1-1.0); Monocytes % 6.6 % (1.7-9.3); Neutrophils # 8.4 K/mm3 (1.8-7.8); Neutrophils % 77.5 % (37.0-80.0); Platelet Count 284 K/mm3 (142-424); Red Blood Count 4.14 M/mm3 (4.60-6.20); Red Cell Distribution Width 16.4 % (11.5-17.5); White Blood Count 10.8 K/mm3 (4.8-10.8)
--- NOTE | 2021-08-10 07:57 | ECG_ITS ---
APPROVED REPORT Exam: Resting ECG HR:82 bpm ECG Measurements Heart Rate 82 AXES QRSd 100 QRS 100 QT 368 T -68 QTc 429 Conclusion Atrial fibrillation with a competing junctional pacemaker Rightward axis ST & T wave abnormality, consider inferior ischemia or digitalis effect ST & T wave abnormality, consider anterolateral ischemia or digitalis effect Abnormal ECG Electronically signed by : Jevon Aguirre MD 08/13/2021 16:47:24
== END ==
PROVIDERS: Visit Provider Otolaryngology
DX: Z01.818 Encounter for other preprocedural examination (principal); Z20.822 Contact with and (suspected) exposure to COVID-19; U07.1 COVID-19; L98.9 Disorder of the skin and subcutaneous tissue, unspecified
CPT/HCPCS: 36415; 85025; 93005; C9803; U0003; U0005

== ENCOUNTER → 2021-08-11 10:18 | Outpatient (CLI) | payer MEDICARE, SELFPAY | PROVIDERS: PCP Family Medicine; Visit Provider Nurse Practitioner | DX: Z20.822 Contact with and (suspected) exposure to COVID-19 (principal); U07.1 COVID-19 | CPT/HCPCS: C9803; U0003; U0005 ==

== ENCOUNTER → 2021-08-24 10:00 | Outpatient (CLI) | payer MEDICARE, SELFPAY | PROVIDERS: PCP Family Medicine; Visit Provider Nurse Practitioner | DX: Z20.822 Contact with and (suspected) exposure to COVID-19 (principal); U07.1 COVID-19 | CPT/HCPCS: C9803; U0003; U0005 ==

== ENCOUNTER → 2021-09-01 08:07 | Outpatient (CLI) | payer MEDICARE, SELFPAY ==
[2021-09-01 08:43] LABS: Basophils # 0.1 K/mm3 (0-0.2); Basophils % 1.1 % (0.1-2.0); Eosinophils # 0.4 K/mm3 (0.0-0.4); Eosinophils % 5.4 % (0.1-12.0); Hematocrit 35.9 % (42.0-52.0); Hemoglobin 10.6 g/dL (14.1-18.0); Lymphocytes # 1.5 K/mm3 (0.7-4.5); Lymphocytes % 19.7 % (10-50); Mean Corpuscular HGB Conc 29.5 g/dL (31.8-35.4); Mean Corpuscular Hemoglobin 27.5 pg (27.0-31.2); Mean Corpuscular Volume 93.3 fl (80-94); Mean Platelet Volume 8.5 fl (7.4-10.4); Monocytes # 0.5 K/mm3 (0.1-1.0); Monocytes % 6.9 % (1.7-9.3); Neutrophils # 5.1 K/mm3 (1.8-7.8); Platelet Count 278 K/mm3 (142-424); Red Blood Count 3.84 M/mm3 (4.60-6.20); Red Cell Distribution Width 16.7 % (11.5-17.5); White Blood Count 7.6 K/mm3 (4.8-10.8)
[2021-09-01 08:56] LABS: Hemoglobin A1C 6.4 % (4.0-6.0)
[2021-09-01 09:11] LABS: Chloride 108 mmol/L (98-107); Sodium 144 mmol/L (136-145)
[2021-09-01 09:12] LABS: Potassium 3.9 mmoL/L (3.5-5.1)
[2021-09-01 09:14] LABS: Alanine Aminotransferase 12 U/L (12-78); Albumin Level 3.4 g/dl (3.5-5.0); Albumin/Globulin Ratio 1.3 (1.1-1.8); Alkaline Phosphatase 107 U/L (38-126); Anion Gap 9.9 mEq/L (5-15); Aspartate Amino Transferase 26 U/L (17-59); Bilirubin,Total 0.2 mg/dl (0.2-1.3); Blood Urea Nitrogen 14 mg/dl (9-20); Carbon Dioxide 30 mmol/L (22.0-30.0); Cholesterol 108 mg/dl (140-200); Estimated Glomerular Filt Rate 129 ml/min (>60); GFR (African American) 156 ML/MIN (>60); Globulin 2.6 g/dL (1.3-3.2); Triglycerides 107 mg/dl (30-150); VLDL Cholesterol 21 mg/dL (0-40)
[2021-09-01 09:15] LABS: Calcium 8.8 mg/dl (8.4-10.2); Chol/HDL Ratio 4.2 (1-3.5); Glucose 111 mg/dl (74-100); HDL Cholesterol 26 mg/dl (40-60)
[2021-09-01 09:26] LABS: Direct LDL Cholesterol 56.46 mg/dL (100-129)
== END ==
PROVIDERS: Visit Provider Family Medicine
DX: I10 Essential (primary) hypertension (principal); E78.5 Hyperlipidemia, unspecified; E11.51 Type 2 diabetes mellitus with diabetic peripheral angiopathy without gangrene; Z79.84 Long term (current) use of oral hypoglycemic drugs
CPT/HCPCS: 36415; 80053; 80061; 83036; 85025

== ENCOUNTER 2021-09-16 06:22 | Day surgery (SDC) | payer MEDICARE, SELFPAY ==
[2021-08-10 12:30] VITALS: BMI 28.5
[2021-09-13 10:12] VITALS: BMI 30.5
[2021-09-16 06:40] VITALS: BP 116/70; PULSE 98; RESP 18; TEMP 36.7; O2SAT 98
[2021-09-16 06:55] LABS: POC Glucose,Bedside 132 (70-110)
--- NOTE | 2021-09-16 07:51 | P.PN_ITS ---
[facility] Anesthesia Checklist - Patient Identification Patient Identification: Arm Band, Verbal (Name & ) - Structural Data Admitted From: Home Planned Operative Procedure/s: Excision of left neck lesion Consent for Planned Operative Procedure(s) Verified: Yes Verified Documents: Surgical Consent - Chart Verification Results Verified: CBC - Additional verifications Anesthesia Reactions: No Hx Blood Transfusions: Yes Blood Transfusion Reaction: No - Cardiovascular Assessment Heart Sounds: S1 & S2 Pulse Rhythm: Regular - Airway Assessment C-Spine Mobility Assessed: Yes TMJ Mobility Assessed: Yes Dentition: Dentures-good fit - Neurological Assessment Level of Consciousness: Awake, Alert, Appropriate - Anesthesia Plan Anesthesia Risk discussed: Yes ASA Class: III Anesthesia Type: MAC [facility] History I have reviewed the patient's past medical history: Yes Medical History: Reports:: Arrhythmia, Atrial Fibrillation, Congestive Heart Failure, Coronary Artery Disease, Diabetes Mellitus Type 2, Gastroesophageal Reflux Disease(GERD), Hyperlipidemia, Hypertension, Internal Pacemaker, Myocardial Infarction, Palpitations, Peripheral Artery Disease Denies:: Cancer, Diabetes Mellitus Type 1, MRSA, Seizures *Have you ever received a pneumonia vaccine?: Yes *Have you received a flu vaccine this season?: No Other Medical History: Reports: Anemia, Arthritis. Denies: Blood Transfusion Reaction Anesthesia experience/problems:: no issues Laterality Cases: Bilateral: Cataract Other Surgeries: Yes: CABG, Cancer Surgery (skin), Cardiac Catheterization, Cardiac Surgery, Colonoscopy, Coronary Stent, Pacemaker, Other Amputation: No Fractures: No - *Social History Last grade of school completed: High school graduate Smoking Status: Never smoker Alcohol Intake: never Alcohol Intake Frequency:: holidays/special occasions only Substance Use Type: denies use *Occupational Status:: retired Housing: house Household Members: spouse *Travel in the last 8 weeks: None Family Hx:: Non-contributory
[2021-09-16 08:23] VITALS: BP 111/75; PULSE 74; RESP 18; TEMP 36.2; O2SAT 95
[2021-09-16 08:33] VITALS: BP 114/56; PULSE 65; RESP 18; O2SAT 97
[2021-09-16 08:43] VITALS: BP 106/63; PULSE 67; RESP 18; O2SAT 96
[2021-09-16 08:56] VITALS: BP 100/66; PULSE 66; RESP 18; O2SAT 99
--- NOTE | 2021-09-16 09:37 | P.OP_ITS ---
Date of procedure: 09/16/21 Pre-op Diagnosis:: 1. 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 Excision of neoplasm left neck 3.6 cm with tissue rearrangement Z-plasty repair Surgeon:: Alexander Toussaint MD ELECTRIC MOTOR ASSEMBLER:: Other (Fidencio Rosales) Anesthesia: GETA Estimated blood loss (mL): 5 Operative findings:: same Operative note:: The left neck was prepped and draped the perilesional area was infiltrated with a total of 5 cc of 2% lidocaine with epinephrine. The lesion was marked out and the Tara measured 3.6 cm in length. The mirela out was incised and the lesion was excised to the level of the sternomastoid muscle and this deep into the subcutaneous layer. The specimen was submitted, bleeding was 5 cc intraoperative and stopped with cautery. Surgicel snow was placed in the defect, anterior and posterior incisions were made and a tissue rearrangement geometric z-plasty repair. It was done with interrupted 2-0 nylon sutures, a Dermabond dressing was applied and Band-Aids were applied. The patient tolerated the procedure well and was sent to recovery in good general condition. Condition: stable Disposition: PACU Complications:: none
== END 2021-09-16 08:58 | disposition home or self-care (01) ==
LOC: OR 06:23
PROVIDERS: PCP Family Medicine; Visit Provider Otolaryngology
DX: C43.4 Malignant melanoma of scalp and neck; I48.91 Unspecified atrial fibrillation; I50.9 Heart failure, unspecified; I25.10 Atherosclerotic heart disease of native coronary artery without angina pectoris; E11.9 Type 2 diabetes mellitus without complications; K21.9 Gastro-esophageal reflux disease without esophagitis; E78.5 Hyperlipidemia, unspecified; I11.0 Hypertensive heart disease with heart failure; Z95.0 Presence of cardiac pacemaker; I25.2 Old myocardial infarction; I73.9 Peripheral vascular disease, unspecified; M19.90 Unspecified osteoarthritis, unspecified site; D64.9 Anemia, unspecified; Z95.5 Presence of coronary angioplasty implant and graft
CPT/HCPCS: 14040; 82962; 88305; 88342; 96374

== ENCOUNTER → 2021-10-11 12:38 | Outpatient (CLI) | payer MEDICARE, SELFPAY ==
[2021-10-11 14:21] LABS: Blood Urea Nitrogen 12 mg/dl (9-20); Estimated Glomerular Filt Rate 108 ml/min (>60); GFR (African American) 131 ML/MIN (>60)
[2021-10-11 14:25] LABS: Hemoglobin A1C 6.2 % (4.0-6.0)
== END ==
PROVIDERS: Family Medicine; Visit Provider Otolaryngology
DX: D50.9 Iron deficiency anemia, unspecified (principal); Z79.899 Other long term (current) drug therapy
CPT/HCPCS: 36415; 82565; 83036; 84520

== ENCOUNTER → 2021-10-13 14:00 | Outpatient (CLI) | payer MEDICARE, SELFPAY ==
--- NOTE | 2021-10-13 14:00 | CT_ITS ---
PROCEDURE: CT SOFT TISSUE NECK WO/W CON CLINICAL HISTORY: left neck melanoma COMPARISON: CR XR CHEST 2V from 06/11/2020 CR XR CHEST PORTABLE from 12/23/2020 TECHNIQUE: Oral Contrast: None IV Contrast: None Axial images obtained with sagittal and coronal reformats. All CT scans at the facility use one or more dose reduction, viz: automated exposure control, ma/kV adjustment per patient size (including targeted exams where dose is matched to indication, i.e. head), or iterative reconstruction technique. FINDINGS: The nasopharynx, oropharynx, hypopharynx, glottic region and epiglottis have an unremarkable appearance. No cervical adenopathy. Upper thoracic images show posterior layering effusions. Nuchal ligament calcification is present posterior to this C5 vertebral spinous process. No bony destructive lesions. A small sclerotic focus is present in the right 4th rib posterior medially and is incompletely image possibly due to a bone island. Left subclavian cardiac pacer device noted. Coarse calcification in the lower pole of the left thyroid gland. No abnormal fluid collections IMPRESSION: No evidence of neck mass or adenopathy. Nonspecific sclerotic focus of the right 4th rib posteriorly measuring 8 mm. Bilateral pleural effusions. Dictated by: Justin Weldon MD 10/14/2021 09:26 Justin Weldon MD in [place] 10/14/2021 09:26
== END ==
PROVIDERS: PCP Family Medicine; Visit Provider Otolaryngology
DX: C43.9 Malignant melanoma of skin, unspecified (principal)
CPT/HCPCS: 70492; Q9967

== ENCOUNTER → 2021-10-18 12:27 | Outpatient (CLI) | payer MEDICARE, SELFPAY ==
[2021-10-18 12:55] LABS: Hemoglobin 8.5 g/dL (14.1-18.0)
== END ==
PROVIDERS: Visit Provider Family Medicine
DX: D50.0 Iron deficiency anemia secondary to blood loss (chronic) (principal)
CPT/HCPCS: 36415; 85018

== ENCOUNTER → 2021-10-26 10:34 | Outpatient (CLI) | payer MEDICARE, SELFPAY ==
--- NOTE | 2021-10-26 10:56 | ECG_ITS ---
APPROVED REPORT Exam: Resting ECG HR:83 bpm ECG Measurements Heart Rate 83 AXES QRSd 94 QRS 92 QT 372 T 260 QTc 437 Conclusion Atrial fibrillation with premature ventricular or aberrantly conducted complexes Rightward axis ST & T wave abnormality, consider inferior ischemia or digitalis effect ST & T wave abnormality, consider anterolateral ischemia or digitalis effect Abnormal ECG Electronically signed by : Jevon Aguirre MD 10/26/2021 21:01:12
[2021-10-26 11:16] LABS: Basophils # 0.1 K/mm3 (0-0.2); Basophils % 0.9 % (0.1-2.0); Eosinophils # 0.2 K/mm3 (0.0-0.4); Eosinophils % 3.9 % (0.1-12.0); Hematocrit 27.4 % (42.0-52.0); Hemoglobin 7.9 g/dL (14.1-18.0); Lymphocytes # 1.2 K/mm3 (0.7-4.5); Lymphocytes % 19.5 % (10-50); Mean Corpuscular HGB Conc 28.8 g/dL (31.8-35.4); Mean Corpuscular Hemoglobin 26.6 pg (27.0-31.2); Mean Corpuscular Volume 92.4 fl (80-94); Mean Platelet Volume 9.8 fl (7.4-10.4); Monocytes # 0.5 K/mm3 (0.1-1.0); Monocytes % 7.9 % (1.7-9.3); Neutrophils # 4.1 K/mm3 (1.8-7.8); Neutrophils % 67.8 % (37.0-80.0); Platelet Count 267 K/mm3 (142-424); Red Blood Count 2.97 M/mm3 (4.60-6.20); Red Cell Distribution Width 15.5 % (11.5-17.5); White Blood Count 6.1 K/mm3 (4.8-10.8)
[2021-10-26 13:05] LABS: Chloride 103 mmol/L (98-107); Sodium 140 mmol/L (136-145)
[2021-10-26 13:06] LABS: Potassium 3.8 mmoL/L (3.5-5.1)
[2021-10-26 13:08] LABS: Anion Gap 9.8 mEq/L (5-15); Blood Urea Nitrogen 20 mg/dl (9-20); Carbon Dioxide 31 mmol/L (22.0-30.0); Estimated Glomerular Filt Rate 93 ml/min (>60); GFR (African American) 112 ML/MIN (>60)
[2021-10-26 13:09] LABS: Calcium 8.5 mg/dl (8.4-10.2); Glucose 220 mg/dl (74-100)
== END ==
PROVIDERS: Visit Provider Otolaryngology
DX: Z01.818 Encounter for other preprocedural examination (principal)
CPT/HCPCS: 36415; 80048; 85025; 93005

== ENCOUNTER 2021-10-28 08:55 | Day surgery (SDC) | payer MEDICARE, SELFPAY ==
[2021-10-25 11:36] VITALS: BMI 27.6
[2021-10-28 09:29] VITALS: BP 149/67; PULSE 89; RESP 18; TEMP 37.5; O2SAT 96
--- NOTE | 2021-10-28 10:10 | SUR.PREOP ---
Dr. Toussaint cancelling surgery for today d/t low H and H. TC to primary, Dr. Yates office and spoke with Jocelyn to communicate lab results and to have them schedule an office appt and transfusion. Dr. Toussaint spoke with Jocelyn as well. Pt to go to office at 330 today. pt instructed, verbalized understanding.
--- NOTE | 2021-10-28 10:38 | SUR.PREOP ---
This patient came into outpatient surgery on October 28, 2021 for a wider excision of his left neck melanoma and as well as 2 other lesions that he had- one on his anterior chest and one on his back, which he has had for apparently 20 years and he wanted them excised and they clearly need to be excised. However, he was anemic when he presented with a hemoglobin of 7.9 and he told me he had not had his usual transfusion that he gets every 2months from Dr. Yates's service he is on iron. We canceled the surgery because of anemia and called Dr. Yates who will see him later on today and he obviously needs to have his hemoglobin brought up to safe levels before we can proceed with the surgery and ideally we will plan to do it next if that is achieved.
[2022-08-25 10:54] LABS: POC Glucose,Bedside 139 (70-110)
== END 2021-10-28 10:52 | disposition home or self-care (01) ==
LOC: OR 08:56
PROVIDERS: PCP Family Medicine; Visit Provider Otolaryngology
DX: D50.9 Iron deficiency anemia, unspecified (principal); L98.9 Disorder of the skin and subcutaneous tissue, unspecified; C43.4 Malignant melanoma of scalp and neck; Z53.8 Procedure and treatment not carried out for other reasons
CPT/HCPCS: 11624; 82962; 96374

== ENCOUNTER 2021-10-29 08:42 | Outpatient (CLI) | payer MEDICARE, SELFPAY ==
[2021-10-29] VITALS (18 sets, daily range): BP systolic 88–142; BP diastolic 35–75; PULSE 71–97; RESP 16–18; TEMP 36.3–36.8; O2SAT 97–100; BMI 26.7
[2021-10-29 10:54] LABS: Hematocrit 29.2 % (42.0-52.0); Hemoglobin 8.1 g/dL (14.1-18.0)
--- NOTE | 2021-10-29 11:27 | PC.NURSE ---
1125 - BLOOD TRANSFUSION STARTED AT 100 ML/HR AT THIS TIME.
--- NOTE | 2021-10-29 12:53 | PC.NURSE ---
INCREASED RATE TO 150 ML/HR AT THIS TIME.
--- NOTE | 2021-10-29 12:56 | PC.NURSE ---
1225 - INCREASED RATE TO 200 ML/HR AT THIS TIME.
--- NOTE | 2021-10-29 14:20 | PC.NURSE ---
1343 - BLOOD TRANSFUSING AT 100 ML/HR AT THIS TIME.
--- NOTE | 2021-10-29 14:26 | PC.NURSE ---
1413 - INCREASED RATE TO 150 ML/HR AT THIS TIME.
--- NOTE | 2021-10-29 15:01 | PC.NURSE ---
1443-INCREASED RATE TO 200 ML/HR AT THIS TIME.
--- NOTE | 2021-10-29 15:42 | PC.NURSE ---
INCREASED RATE TO 250 ML/HR AT 1313.
[2021-10-29 16:52] LABS: Hematocrit 34.4 % (42.0-52.0)
[2021-10-29 17:03] LABS: Hemoglobin 10.3 g/dL (14.1-18.0)
== END 2021-10-29 16:35 | disposition home or self-care (01) ==
LOC: INF 08:44
PROVIDERS: PCP Family Medicine; Visit Provider Family Medicine
DX: D50.0 Iron deficiency anemia secondary to blood loss (chronic) (principal)
CPT/HCPCS: 36430; 85014; 85018; 86850; P9016

== ENCOUNTER → 2021-11-02 08:01 | Outpatient (CLI) | payer MEDICARE, SELFPAY ==
[2021-11-02 08:27] LABS: Basophils # 0.1 K/mm3 (0-0.2); Basophils % 1.1 % (0.1-2.0); Eosinophils # 0.2 K/mm3 (0.0-0.4); Eosinophils % 3.5 % (0.1-12.0); Hematocrit 37.5 % (42.0-52.0); Hemoglobin 10.7 g/dL (14.1-18.0); Lymphocytes # 1.3 K/mm3 (0.7-4.5); Lymphocytes % 19.4 % (10-50); Mean Corpuscular HGB Conc 28.5 g/dL (31.8-35.4); Mean Corpuscular Volume 91.1 fl (80-94); Mean Platelet Volume 10.1 fl (7.4-10.4); Monocytes # 0.5 K/mm3 (0.1-1.0); Monocytes % 7.6 % (1.7-9.3); Neutrophils # 4.4 K/mm3 (1.8-7.8); Neutrophils % 68.4 % (37.0-80.0); Platelet Count 240 K/mm3 (142-424); Red Blood Count 4.12 M/mm3 (4.60-6.20); Red Cell Distribution Width 14.9 % (11.5-17.5); White Blood Count 6.4 K/mm3 (4.8-10.8)
== END ==
PROVIDERS: Visit Provider Otolaryngology
DX: I50.20 Unspecified systolic (congestive) heart failure (principal)
CPT/HCPCS: 36415; 85025

== ENCOUNTER 2021-11-04 06:06 | Day surgery (SDC) | payer MEDICARE, SELFPAY ==
[2021-11-02 08:14] VITALS: BMI 27.6
[2021-11-04 06:27] VITALS: BP 140/74; PULSE 91; RESP 18; TEMP 36.4; O2SAT 95
--- NOTE | 2021-11-04 08:39 | P.PN_ITS ---
[facility] Anesthesia Checklist - Structural Data Admitted From: Home Planned Operative Procedure/s: excision neoplasm l neck,chest,back Consent for Planned Operative Procedure(s) Verified: Yes - Additional verifications Anesthesia Reactions: No Hx Blood Transfusions: Yes (LAST BLOOD TRANSFUSION 10/29/21) Blood Transfusion Reaction: No - Airway Assessment C-Spine Mobility Assessed: Yes TMJ Mobility Assessed: Yes Dentition: Dentures-good fit - Neurological Assessment Level of Consciousness: Awake, Alert, Appropriate - Anesthesia Plan Anesthesia Risk discussed: Yes Anesthesia Plan: Verified ASA Class: IV Anesthesia Type: MAC [facility] History I have reviewed the patient's past medical history: Yes Medical History: Reports:: Arrhythmia, Atrial Fibrillation, Cardiomyopathy, Congestive Heart Failure, Coronary Artery Disease, Diabetes Mellitus Type 2, Gastroesophageal Reflux Disease(GERD), Hyperlipidemia, Hypertension, Internal Pacemaker, Myocardial Infarction (CABG), Palpitations, Peripheral Artery Disease Denies:: Cancer, Diabetes Mellitus Type 1, MRSA, Seizures *Have you ever received a pneumonia vaccine?: Yes *Have you received a flu vaccine this season?: Yes Other Medical History: Reports: Anemia, Arthritis. Denies: Blood Transfusion Reaction Anesthesia experience/problems:: none Other Surgeries: Yes: CABG, Cancer Surgery (LEFT NECK MASS RESECTION), Cardiac Catheterization, Cardiac Surgery, Colonoscopy, Coronary Stent, Pacemaker, Skin Cancer Excision, Other Amputation: No Fractures: No - *Social History Last grade of school completed: High school graduate Smoking Status: Former smoker Tobacco Type: smokeless tobacco Alcohol Intake: never Alcohol Intake Frequency:: holidays/special occasions only Substance Use Type: denies use *Occupational Status:: retired Housing: house Household Members: spouse *Travel in the last 8 weeks: None Family Hx:: Unable to obtain
[2021-11-04 09:50] VITALS: BP 141/82; PULSE 95; RESP 20; TEMP 36.8; O2SAT 92
[2021-11-04 10:05] VITALS: BP 133/76; PULSE 88; RESP 20; O2SAT 92
[2021-11-04 10:20] VITALS: BP 148/57; PULSE 90; RESP 16; O2SAT 95
--- NOTE | 2021-11-04 10:41 | P.OP_ITS ---
Date of procedure: 11/04/21 Pre-op Diagnosis:: 1. Malignant melanoma left neck 2. skin neoplasm anterior chest 4 x 6 cm 3. Back neoplasm 7 x 9 cm Post-op Diagnosis:: same Procedure performed:: 1. Extended excision of malignant melanoma left neck 8 x 10 cm 2. Excision of malignant neoplasm anterior chest 4 x 6 cm 3. Incisional biopsy of the malignant neoplasm back 7 x 9 cm Surgeon:: Alexander Toussaint MD ASSET LIABILITY ANALYST:: Arturo Phillips Anesthesia: MAC Estimated blood loss (mL): 5 Operative findings:: same Operative note:: The left neck was prepped and draped, the lesion surrounded the scar from the previous excision and it was marked out it measured 8 x 10 cm. The markup was incised and the lesion was excised. In entirety and submitted. Flaps were elevated and a tissue rearrangement geometric plastic repair was done with interrupted subcutaneous sutures as well as cutaneous sutures. A dressing was applied. The lesion on the anterior chest was marked out it measured 4 x 6 cm the perilesional area was infiltrated with 2% lidocaine containing epinephrine the lesion was next excised and submitted. Anterior and posterior incisions were made and a tissue rearrangement geometric plastic repair was done with interrupted chromic and cutaneous sutures. The patient was then repositioned and there was a very extensive lesion on the back which measured at least 7 x 7 x 9 cm and extended subcutaneously an incisional biopsy was then taken from the posterior aspect of that tumor. Bleeding was stopped with cautery blood loss for all the procedure was less than 5 cc, dressings were applied and patient was sent to recovery in good general condition. Condition: stable Disposition: PACU Complications:: none
[2021-11-04 10:50] VITALS: BP 149/67; PULSE 96; RESP 16; O2SAT 97
[2021-11-04 11:10] VITALS: BP 149/87; PULSE 92; RESP 16; O2SAT 97
[2022-08-25 10:55] LABS: POC Glucose,Bedside 65 (70-110)
== END 2021-11-04 11:10 | disposition home or self-care (01) ==
LOC: OR 06:08
PROVIDERS: PCP Family Medicine; Visit Provider Otolaryngology
DX: C44.519 Basal cell carcinoma of skin of other part of trunk (principal); D23.4 Other benign neoplasm of skin of scalp and neck; I48.91 Unspecified atrial fibrillation; I42.9 Cardiomyopathy, unspecified; I50.9 Heart failure, unspecified; I25.10 Atherosclerotic heart disease of native coronary artery without angina pectoris; E11.9 Type 2 diabetes mellitus without complications; K21.9 Gastro-esophageal reflux disease without esophagitis; E78.5 Hyperlipidemia, unspecified; I11.0 Hypertensive heart disease with heart failure; Z95.0 Presence of cardiac pacemaker; I25.2 Old myocardial infarction; Z95.5 Presence of coronary angioplasty implant and graft
CPT/HCPCS: 14000 ×2; 14040; 82962; 88305; 88331; 96374

== ENCOUNTER → 2021-11-12 12:29 | Outpatient (CLI) | payer MEDICARE, SELFPAY ==
[2021-11-12 13:26] LABS: Potassium 3.4 mmoL/L (3.5-5.1); Sodium 141 mmol/L (136-145)
[2021-11-12 13:27] LABS: Chloride 95 mmol/L (98-107)
[2021-11-12 13:29] LABS: Blood Urea Nitrogen 13 mg/dl (9-20); Estimated Glomerular Filt Rate 108 ml/min (>60); GFR (African American) 131 ML/MIN (>60)
[2021-11-12 13:30] LABS: Calcium 8.3 mg/dl (8.4-10.2); Glucose 126 mg/dl (74-100)
[2021-11-12 13:37] LABS: Anion Gap 13.4 mEq/L (5-15); Carbon Dioxide 36 mmol/L (22.0-30.0)
== END ==
PROVIDERS: Visit Provider Internal Medicine
DX: I50.20 Unspecified systolic (congestive) heart failure (principal)
CPT/HCPCS: 36415; 80048

== ENCOUNTER → 2022-02-11 07:05 | Outpatient (CLI) | payer MEDICARE, SELFPAY ==
[2022-02-11 07:27] LABS: Basophils # 0.1 K/mm3 (0-0.2); Eosinophils # 0.3 K/mm3 (0.0-0.4); Eosinophils % 4.1 % (0.1-12.0); Hematocrit 28.5 % (42.0-52.0); Lymphocytes # 1.5 K/mm3 (0.7-4.5); Lymphocytes % 21.9 % (10-50); Mean Corpuscular HGB Conc 28.2 g/dL (31.8-35.4); Mean Corpuscular Hemoglobin 25.3 pg (27.0-31.2); Mean Corpuscular Volume 89.6 fl (80-94); Mean Platelet Volume 8.8 fl (7.4-10.4); Monocytes # 0.5 K/mm3 (0.1-1.0); Monocytes % 7.7 % (1.7-9.3); Neutrophils # 4.5 K/mm3 (1.8-7.8); Neutrophils % 65.3 % (37.0-80.0); Platelet Count 330 K/mm3 (142-424); Red Blood Count 3.18 M/mm3 (4.60-6.20); Red Cell Distribution Width 17.3 % (11.5-17.5); White Blood Count 6.9 K/mm3 (4.8-10.8)
[2022-02-11 10:37] LABS: Hemoglobin A1C 5.9 % (4.0-6.0)
[2022-02-11 11:50] LABS: Alanine Aminotransferase 14 U/L (12-78); Albumin Level 3.3 g/dl (3.5-5.0); Albumin/Globulin Ratio 1.4 (1.1-1.8); Alkaline Phosphatase 85 U/L (38-126); Anion Gap 8.6 mEq/L (5-15); Aspartate Amino Transferase 26 U/L (17-59); Bilirubin,Total 0.3 mg/dl (0.2-1.3); Blood Urea Nitrogen 17 mg/dl (9-20); Calcium 8.6 mg/dl (8.4-10.2); Carbon Dioxide 31 mmol/L (22.0-30.0); Chloride 103 mmol/L (98-107); Chol/HDL Ratio 4.2 (1-3.5); Cholesterol 89 mg/dl (140-200); Estimated Glomerular Filt Rate 108 ml/min (>60); GFR (African American) 131 ML/MIN (>60); Globulin 2.3 g/dL (1.3-3.2); Glucose 80 mg/dl (74-100); HDL Cholesterol 21 mg/dl (40-60); Potassium 3.6 mmoL/L (3.5-5.1); Sodium 139 mmol/L (136-145); Total Protein,Serum 5.6 g/dl (6.3-8.2); Triglycerides 116 mg/dl (30-150); VLDL Cholesterol 23 mg/dL (0-40)
[2022-02-11 12:00] LABS: Direct LDL Cholesterol 45.09 mg/dL (100-129)
== END ==
PROVIDERS: Visit Provider Family Medicine
DX: E11.9 Type 2 diabetes mellitus without complications (principal); E78.5 Hyperlipidemia, unspecified; I10 Essential (primary) hypertension; D50.0 Iron deficiency anemia secondary to blood loss (chronic); Z79.4 Long term (current) use of insulin
CPT/HCPCS: 36415; 80053; 80061; 83036; 85025

== ENCOUNTER → 2022-03-29 12:59 | Outpatient (CLI) | payer MEDICARE, SELFPAY ==
--- NOTE | 2022-03-29 13:00 | CA_ITS ---
APPROVED REPORT EXAM: Comprehensive 2D, Doppler, and color-flow Echocardiogram Director General: Ashanti Nichole, RT(R) Ht: 5 ft 10 in Wt: 192lbs BSA: 2.05 BP: 112/54 mmHg Indications: systolic HF, HOYOS, ischemic CM, hypelipidemia, AICD, AFIB. I explained to patient the need for Definity contrast to enhance his images but he refused multiple times. 2D Dimensions LVOT 1.95 cm (M/F) 1.5-2.5 LVEF (Story's) 29.60 % M: 52 - 72 LV Volume 218.20 mL M: 62 - 150 LV Volume Index 106.43 mL/m2 M: 34 - 74 LA Volume 112.90 mL LA Volume Index 55.07 mL/m2 (M/F) 16-34 M-Mode Dimensions RVDd 3.44 cm (0.9-2.6) LA Diam 4.96 cm (1.9-4.0) LVDd 3.93 cm (3.5-5.7) Ao Diam 3.03 cm (2.0-3.7) LVDs 3.68 cm (3.5-5.7) IVSd 0.80 cm (0.6-1.1) PWd 0.80 cm (0.6-1.1) EF (Teich) 14.50% FS 6.40% EDV (Teich) 67.10 mL ESV (Teich) 57.40 mL Aortic Valve LVOT Max 104.00 (70-110 cm/s) LVOT VTI 18.79 cm AoV Peak Johan. 186.00 (50-130 cm/s) AO Peak GR. 13.80 mmHg AO Mean GR. 6.80 (<5 mmHg) AO VTI 34.33 (18-25 cm) JEFF (VTI) 1.63 (2.5-4.5 cm2) Left Ventricle Left atrium is mildly enlarged, left ventricle is mildly dilated, mild concentric left ventricular hypertrophy, estimated ejection fraction approximately 35%, there is marked hypokinesis involving the apical wall, there is abnormal septal motion. Diastolic parameters are inconclusive. Right Ventricle Right atrium and right ventricle are normal size and contractility, AICD lead seen in right ventricle. Aortic Valve Aortic valve is thickened and calcified without aortic stenosis or aortic insufficiency. Mitral Valve Mitral valve leaflets are minimally thickened, there is mild mitral regurgitation. Tricuspid Valve Tricuspid valve grossly normal, there is mild tricuspid regurgitation, tricuspid regurgitation jet velocity is inadequate for calculation of the right ventricular systolic pressure. Pulmonic Valve Pulmonic valve is poorly visualized. Great Vessels Aortic root is normal size. Inferior vena cava is normal size with normal inspiratory collapse. Pericardium No significant pericardial effusion noted. Conclusion 1. Mildly enlarged left atrium, dilated left ventricle, visually estimated ejection fraction 35% with segmental wall motion abnormality described above, diastolic parameters are inconclusive. 2. Mild mitral and tricuspid regurgitation. 3. No significant pericardial effusion noted. 4. Inferior vena cava normal size with normal inspiratory collapse. Electronically signed by : Fede Nicole MD 03/29/2022 21:18:05
--- NOTE | 2022-03-29 13:00 | CA_ITS ---
FINAL REPORT TECHNIQUE: Color Doppler, duplex Doppler and champion scale sonography of the bilateral neck arterial vasculature was performed. Velocities were measured in the carotid arteries. Stenosis evaluation based on the validated velocity criteria. CLINICAL HISTORY: left carotid bruit, ASCVD, Afib FINDINGS: The peak systolic velocity of the right common carotid artery is 134 cm/s. The peak systolic velocity of the right internal carotid artery is 85 cm/s and end diastolic velocity 18 cm/s. A mild amount of plaque is present. The right external carotid artery is patent. The right vertebral artery is patent with antegrade flow. ICA/CCA ratio: 1.0 The peak systolic velocity of the left common carotid artery is 98 cm/s. The peak systolic velocity of the left internal carotid artery is 273 cm/s and end diastolic velocity 74 cm/s. A large amount of plaque is present. The left external carotid artery is patent.The left vertebral artery is patent with antegrade flow. ICA/CCA ratio: 3.1 IMPRESSION: 70-99% left carotid stenosis. Recommend correlation with catheter directed angiography. Less than 50% right carotid stenosis. Bilateral patent vertebral arteries with antegrade flow. Reviewed, Interpreted and Dictated by Bill Helms III, MD Transcribed by Gonsalo Win Authenticated by Bill Helms III, MD on 03/29/2022 02:49:11 PM [facility]
== END ==
PROVIDERS: PCP Family Medicine; Visit Provider Physician Assistant
DX: I50.20 Unspecified systolic (congestive) heart failure (principal); R06.00 Dyspnea, unspecified; Z95.810 Presence of automatic (implantable) cardiac defibrillator; R09.89 Other specified symptoms and signs involving the circulatory and respiratory systems
CPT/HCPCS: 93306; 93880

== ENCOUNTER → 2022-05-05 10:32 | Outpatient (CLI) | payer MEDICARE, SELFPAY ==
[2022-05-05 11:20] LABS: Basophils # 0.1 K/mm3 (0-0.2); Basophils % 1.3 % (0.1-2.0); Eosinophils # 0.1 K/mm3 (0.0-0.4); Eosinophils % 1.7 % (0.1-12.0); Hematocrit 26.8 % (42.0-52.0); Hemoglobin 7.4 g/dL (14.1-18.0); Lymphocytes # 1.5 K/mm3 (0.7-4.5); Lymphocytes % 20.3 % (10-50); Mean Corpuscular HGB Conc 27.5 g/dL (31.8-35.4); Mean Corpuscular Hemoglobin 24.9 pg (27.0-31.2); Mean Corpuscular Volume 90.6 fl (80-94); Mean Platelet Volume 9.3 fl (7.4-10.4); Monocytes # 0.7 K/mm3 (0.1-1.0); Monocytes % 9.5 % (1.7-9.3); Neutrophils # 5.1 K/mm3 (1.8-7.8); Neutrophils % 67.2 % (37.0-80.0); Platelet Count 262 K/mm3 (142-424); Red Blood Count 2.96 M/mm3 (4.60-6.20); Red Cell Distribution Width 17.8 % (11.5-17.5); White Blood Count 7.6 K/mm3 (4.8-10.8)
== END ==
PROVIDERS: PCP Physician Assistant; Visit Provider Family Medicine
DX: E11.51 Type 2 diabetes mellitus with diabetic peripheral angiopathy without gangrene (principal); D50.0 Iron deficiency anemia secondary to blood loss (chronic); Z79.4 Long term (current) use of insulin
CPT/HCPCS: 36415; 83036; 85025

== ENCOUNTER 2022-05-09 08:48 | Outpatient (CLI) | payer MEDICARE, SELFPAY ==
[2022-05-09] VITALS (10 sets, daily range): BP systolic 110–156; BP diastolic 49–74; PULSE 63–88; RESP 17–18; TEMP 36.4–36.8; O2SAT 93–99; BMI 27.5
[2022-05-09 10:03] LABS: Hematocrit 29.6 % (42.0-52.0); Hemoglobin 7.8 g/dL (14.1-18.0)
[2022-05-09 14:31] LABS: Hematocrit 30.9 % (42.0-52.0)
[2022-05-09 16:37] LABS: Hemoglobin 8.7 g/dL (14.1-18.0)
== END 2022-05-09 14:10 | disposition home or self-care (01) ==
LOC: INF 08:49
PROVIDERS: PCP Family Medicine; Visit Provider Family Medicine
DX: D64.9 Anemia, unspecified (principal)
CPT/HCPCS: 36430; 85014; 85018; 86850; P9016

== ENCOUNTER 2022-05-17 11:41 | Observation (INO) | payer MEDICARE, SELFPAY ==
[2022-05-17] VITALS (9 sets, daily range): BP systolic 112–141; BP diastolic 55–78; PULSE 63–91; RESP 16–24; TEMP 36.6–36.9; O2SAT 93–98; BMI 26.4; BMI 30.5
--- NOTE | 2022-05-17 11:42 | ECG_ITS ---
APPROVED REPORT Exam: Resting ECG HR:79 bpm ECG Measurements Heart Rate 79 AXES QRSd 105 QRS 96 QT 361 T -71 QTc 396 Conclusion ATRIAL FIBRILLATION WITH ABERRANT CONDUCTION OR VENTRICULAR PREMATURE COMPLEXES BORDERLINE RIGHT AXIS DEVIATION [QRS AXIS > 90] POSSIBLE ANTERIOR MYOCARDIAL INFARCTION , PROBABLY OLD [30 ms Q WAVE IN V3/V4, OR R < 0.2 mV IN V4] ABNORMAL RHYTHM ECG UNCONFIRMED REPORT Electronically signed by : Jevon Aguirre MD 05/18/2022 14:42:26
--- NOTE | 2022-05-17 11:44 | PC.NURSE ---
EDMUNDO LESTER at
--- NOTE | 2022-05-17 11:49 | PC.NURSE ---
pt to ED room 7 by wheelchair from waiting room and ambulatory to stretcher without complications. EKG obtained and IV placed. Raya Zuleta and Domi at BS. pt hooked to monitor; family at BS
--- NOTE | 2022-05-17 11:50 | XR_ITS ---
FINAL REPORT CLINICAL HISTORY: dyspnea COMPARISON: December 23, 2020 FINDINGS: A single portable view of the chest was obtained. There are postoperative changes from median sternotomy. A left subclavian ICD is present. There is cardiomegaly. There is worsening pulmonary vascular congestion. The mediastinum is within normal limits. There are bibasilar pulmonary opacities, atelectasis or pneumonia. There is a worsening, moderate left pleural effusion. The bony thorax is intact. IMPRESSION: Cardiomegaly with worsening pulmonary vascular congestion. Worsening moderate left pleural effusion. Bibasilar atelectasis or pneumonia. Reviewed, Interpreted and Dictated by Bill Helms III, MD Transcribed by Glendy Saleh Authenticated and . [facility]
--- NOTE | 2022-05-17 11:57 | PC.NURSE ---
Notified RT of VBG.
[2022-05-17 11:59] LABS: Basophils # 0.1 K/mm3 (0-0.2); Basophils % 1.4 % (0.1-2.0); Eosinophils # 0.2 K/mm3 (0.0-0.4); Hematocrit 31.7 % (42.0-52.0); Hemoglobin 8.9 g/dL (14.1-18.0); Lymphocytes # 1.4 K/mm3 (0.7-4.5); Mean Corpuscular HGB Conc 28.2 g/dL (31.8-35.4); Mean Corpuscular Hemoglobin 25.1 pg (27.0-31.2); Mean Corpuscular Volume 89.1 fl (80-94); Mean Platelet Volume 8.9 fl (7.4-10.4); Monocytes # 0.6 K/mm3 (0.1-1.0); Monocytes % 8.1 % (1.7-9.3); Neutrophils # 5.3 K/mm3 (1.8-7.8); Neutrophils % 69.6 % (37.0-80.0); Platelet Count 245 K/mm3 (142-424); Red Blood Count 3.56 M/mm3 (4.60-6.20); Red Cell Distribution Width 16.9 % (11.5-17.5); White Blood Count 7.6 K/mm3 (4.8-10.8)
[2022-05-17 12:02] LABS: VBG Base Excess 7.8 mmol/L (-2.4-2.3); VBG HCO3 32.2 mmol/L (23-30); VBG Oxygen Saturation 71.9 % (50-70); VBG PCO2 49.8 mmol/L (35-51); VBG PH 7.43 mmol/L (7.31-7.41); VBG Total CO2 33.7 mmol/L (23-27)
[2022-05-17 12:04] LABS: Potassium 3.6 mmoL/L (3.5-5.1); Sodium 138 mmol/L (136-145)
[2022-05-17 12:06] LABS: Alanine Aminotransferase 16 U/L (12-78); Aspartate Amino Transferase 37 U/L (17-59); Blood Urea Nitrogen 19 mg/dl (9-20); Creatinine Clearance Estimated 69 mL/min (50-200); Estimated Glomerular Filt Rate 108 ml/min (>60); GFR (African American) 131 ML/MIN (>60)
[2022-05-17 12:07] LABS: Albumin Level 3.3 g/dl (3.5-5.0); Albumin/Globulin Ratio 1.3 (1.1-1.8); Alkaline Phosphatase 94 U/L (38-126); Bilirubin,Total 0.3 mg/dl (0.2-1.3); Calcium 8.6 mg/dl (8.4-10.2); Carbon Dioxide 36 mmol/L (22.0-30.0); Globulin 2.5 g/dL (1.3-3.2); Glucose 182 mg/dl (74-100); Total Protein,Serum 5.8 g/dl (6.3-8.2)
[2022-05-17 12:15] LABS: Anion Gap 7.6 mEq/L (5-15); Chloride 98 mmol/L (98-107)
[2022-05-17 12:19] LABS: Troponin I 0.03 ng/ml (0.00-0.034)
--- NOTE | 2022-05-17 12:25 | HMH.EDCP ---
ED Disposition Clinical Impression: Heart failure Disposition: Admitted As Inpatient Condition on Discharge: Good - Critical Care Critical Care Time: No Attestation: On 05/17/22, the high probability of a clinically significant, sudden or life threatening deterioration of the following system(s) required my full and direct attention, intervention and personal management. The time I documented below is in addition to time spent performing reported procedures but includes the following listed in this critical care notation. Medical Decision Making - Medical Records Medical records reviewed: Yes: I reviewed the patient's medical records. - Gallo Inquiry Pt receiving controlled substance: No Vital Signs: 05/17/22 11:46 05/17/22 12:14 05/17/22 12:44 Temperature 98.4 F Temperature Source Oral Pulse Rate 70 87 Pulse Rate [Left Radial] 76 Respiratory Rate 22 17 Blood Pressure 119/57 L 118/57 L Blood Pressure [Left Arm] 134/58 L Blood Pressure Mean 92 89 Blood Pressure Mean [Left Arm] 83 Blood Pressure Source [Left Arm] Automatic Cuff Blood Pressure Position Sitting Blood Pressure Position [Left Arm] Sitting 02 Sat by Pulse Oximetry 93 L 94 L 94 L Oxygen Delivery Method Room Air Room Air Room Air 05/17/22 14:15 05/17/22 14:44 05/17/22 16:45 Temperature Temperature Source Pulse Rate 91 H 63 78 Pulse Rate [Left Radial] Respiratory Rate 20 18 20 Blood Pressure 121/57 L 122/59 L Blood Pressure [Left Arm] Blood Pressure Mean 94 80 Blood Pressure Mean [Left Arm] Blood Pressure Source [Left Arm] Blood Pressure Position Blood Pressure Position [Left Arm] 02 Sat by Pulse Oximetry 97 96 98 Oxygen Delivery Method 05/17/22 17:30 Temperature 97.8 F Temperature Source Oral Pulse Rate Pulse Rate [Left Radial] 75 Respiratory Rate 24 Blood Pressure Blood Pressure [Left Arm] 112/55 L Blood Pressure Mean Blood Pressure Mean [Left Arm] 74 Blood Pressure Source [Left Arm] Automatic Cuff Blood Pressure Position Blood Pressure Position [Left Arm] 02 Sat by Pulse Oximetry 97 Oxygen Delivery Method Room Air - Lab Data Lab results reviewed: Yes: I reviewed the patient's lab results. Lab Results 05/17/22 11:47: WBC 7.6, RBC 3.56 L, Hgb 8.9 L, Hct 31.7 L, MCV 89.1, MCH 25.1 L, MCHC 28.2 L, RDW 16.9, Plt Count 245, MPV 8.9, Neut % (Auto) 69.6, Lymph % (Auto) 18.0, Routt % (Auto) 8.1, Eos % (Auto) 3.0, Baso % (Auto) 1.4, Neut # (Auto) 5.3, Lymph # (Auto) 1.4, Routt # (Auto) 0.6, Eos # (Auto) 0.2, Baso # (Auto) 0.1 05/17/22 11:47: Sodium 138, Potassium 3.6, Chloride 98, Carbon Dioxide 36 H, Anion Gap 7.6, BUN 19, Creatinine 0.70, Estimated Creat Clear 69, Estimated GFR 108, Est GFR ( Amer) 131, Glucose 182 H, Calcium 8.6, Total Bilirubin 0.3, AST 37, ALT 16, Alkaline Phosphatase 94, Troponin I 0.03, Total Protein 5.8 L, Albumin 3.3 L, Globulin 2.5, Albumin/Globulin Ratio 1.3 05/17/22 11:49: VBG pH 7.43 H, VBG pCO2 49.8, VBG pO2 40.0, VBG HCO3 32.2 H, VBG Total CO2 33.7 H, VBG O2 Saturation 71.9 H, VBG Base Excess 7.8 H 05/17/22 11:53: NT-Pro-B Natriuret Pep 9790 H Result diagrams: 05/17/22 11:47 05/17/22 11:47 Orders (Tests/Meds): ED MEDICATIONS Generic Name Dose Route Start Last Admin Trade Name Freq PRN Reason Stop Dose Admin Furosemide 80 mg 05/17/22 21:00 Furosemide 40mg/4ml Vial IV 06/16/22 20:59 Q8 AMANDA Insulin Human Lispro 0 unit 05/17/22 21:00 Humalog 100 Units/Ml 3ml Vial (Ssi) SQ 06/16/22 20:59 ACHS AMANDA Protocol Discontinued Medications Generic Name Dose Route Start Last Admin Trade Name Freq PRN Reason Stop Dose Admin Furosemide 80 mg 05/17/22 14:00 05/17/22 14:05 Furosemide 100mg/10ml Vial IV 05/17/22 14:01 80 mg ONCE ONE Administration ORDERS Category Date Time Status Troponin I Q3H Lab 05/17/22 18:00 Ordered Medical Decision Narrative: Mr. Trevino 72-year-old male with class III
--- NOTE | 2022-05-17 12:28 | PC.NURSE ---
Notified rad of CXR
[2022-05-17 12:39] LABS: NT Pro Brain Natriuretic Pep. 9790 pg/mL (0-450)
--- NOTE | 2022-05-17 12:47 | PC.NURSE ---
Spoke with Jocelyn in cardiology and let her know that we needed a consult for this pt and his defib would need to be interrogated. Advised they would be over. Updated family and pt
--- NOTE | 2022-05-17 12:50 | PC.NURSE ---
Rad at bedside
--- NOTE | 2022-05-17 13:28 | PC.NURSE ---
Nuria Davidson at bedside
--- NOTE | 2022-05-17 14:29 | PC.NURSE ---
Dr. Joy and Nuria Davidson APRN at BS
--- NOTE | 2022-05-17 14:55 | PC.NURSE ---
Lab at bedside
[2022-05-17 15:05] LABS: Coronavirus 19, PCR Not Detected (NotDetected); Influenza A, PCR Not Detected (NotDetected); Influenza B, PCR Not Detected (NotDetected)
[2022-05-17 15:26] LABS: Troponin I 0.02 ng/ml (0.00-0.034)
--- NOTE | 2022-05-17 15:39 | HMH.CNCARD ---
History of Present Illness Consult date: 05/17/22 Requesting physician: Lexis Singletary Consult reason: chest pain Chief complaint: chest pain History of present illness: This is an 82-year-old white gentleman who presented to the emergency department with complaints of chest pain. The patient states that he had chest pain approximately 1 and half hours prior to arrival. He describes this as an excruciating left-sided pain that did not radiate. He states that it lasted for approximately 3 minutes. He states that it was associated with some shortness of breath and he states that he was sitting down when this occurred but had been moving his recliner to stand up. He states that he has noticed he has had some worsening shortness of breath with exertion as well as cough. He states that this is associated with bilateral lower extremity edema. He states that his edema has progressively worsened and his lower extremities are now weeping fluid. He states that he might have been shocked by his defibrillator, he is unsure, because of the excruciating sharp pain that he felt. He denies any fever, chills, nausea, vomiting or diarrhea. [facility] History I have reviewed the patient's past medical history: Yes Medical History: Reports:: Arrhythmia, Atrial Fibrillation, Cancer, Cardiomyopathy, Congestive Heart Failure, Coronary Artery Disease, Diabetes Mellitus Type 2, Gastroesophageal Reflux Disease(GERD), Hyperlipidemia, Hypertension, Internal Pacemaker, Myocardial Infarction, Palpitations, Peripheral Artery Disease Denies:: Diabetes Mellitus Type 1, MRSA, Seizures *Have you ever received a pneumonia vaccine?: Yes *Have you received a flu vaccine this season?: Yes Other Medical History: Reports: Anemia, Arthritis. Denies: Blood Transfusion Reaction Other Surgeries: Yes: CABG, Cancer Surgery (LEFT NECK MASS RESECTION), Cardiac Catheterization, Cardiac Surgery, Colonoscopy, Coronary Stent, Pacemaker, Skin Cancer Excision, Other Amputation: No Fractures: No - *Social History Smoking Status: Current every day smoker Tobacco Type: smokeless tobacco # Packs/Day (cigarettes): 0 Alcohol Intake: never Alcohol Intake Frequency:: holidays/special occasions only Substance Use Type: denies use *Occupational Status:: retired Housing: house Household Members: spouse *Travel in the last 8 weeks: None Family Hx:: Cancer, Diabetes, Heart Attack, Hypertension, Hyperlipidemia Meds Home Medications Medication Instructions Recorded Confirmed Type atorvastatin 40 mg tablet 40 mg PO DAILY tab 04/24/18 05/09/22 History metformin 1,000 mg tablet 500 mg PO BID tab 07/07/20 05/09/22 History Calc/D3/Mag/Zn/[place]aja/[place] 1 tab PO DAILY 12/31/20 05/09/22 History [Calcium 600 mg Plus Vit D Tab] Empire-3S/Dha/Epa/Fish Oil [Fish 1 cap PO BID 12/31/20 05/09/22 History Oil 1,000 mg Softgel] insulin glargine 100 unit/mL (3 30 unit SQ BID ml 04/13/21 05/09/22 History mL) subcutaneous pen diphenhydramine HCl 25 mg tablet 25 mg PO HS 09/14/21 05/09/22 History Multivitamin 1 each PO DAILY 10/25/21 05/09/22 History sacubitril 24 mg-valsartan 26 mg 1 tab PO BID #180 tab 11/02/21 05/09/22 Rx tablet rivaroxaban 20 mg tablet 20 mg PO DAILY #30 tab 12/10/21 05/09/22 Rx carvedilol 6.25 mg tablet 6.25 mg PO BID 90 Days #180 tab 02/23/22 05/09/22 Rx Digoxin See Rx Instructions .ROUTE .COMPLEX 05/09/22 05/09/22 History Furosemide [Furosemide 40MG tAB*] See Rx Instructions .ROUTE .COMPLEX 05/09/22 05/09/22 History Allergies Allergy/AdvReac Type Severity Reaction Status Date / Time pregabalin [From Lyrica] Allergy Mild Verified 03/23/22 14:34 shellfish derived Allergy Mild Verified 03/23/22 14:34 Exam Vital signs and Labs for Last 24 Hours: Temp Pulse Resp BP Pulse Ox 98.4 F 63 18 122/59 L 96 05/17/22 11:46 05/17/22 14:44 05/17/22 14:44 05/17/22 14:44 05/17/22 14:44 Laboratory Results - last 24 hr 05/17/22 11:47: WBC 7.6, RBC 3.56 L, Hgb 8.9 L, Hct 31.
--- NOTE | 2022-05-17 15:41 | PC.NURSE ---
Sasha Garrido APRN at BS
--- NOTE | 2022-05-17 16:06 | HMH.HP ---
*Admission Date: 05/17/22 *Chief complaint: chest pain and SOB *History of present illness: History of present illness: This is an 82-year-old white gentleman who presented to the emergency department with complaints of chest pain. The patient states that he had chest pain approximately 1 and half hours prior to arrival. He describes this as an excruciating left-sided pain that did not radiate. He states that it lasted for approximately 3 minutes. He states that it was associated with some shortness of breath and he states that he was sitting down when this occurred but had been moving his recliner to stand up. He states that he has noticed he has had some worsening shortness of breath with exertion as well as cough. He states that this is associated with bilateral lower extremity edema. He states that his edema has progressively worsened and his lower extremities are now weeping fluid. He states that he might have been shocked by his defibrillator, he is unsure, because of the excruciating sharp pain that he felt. He denies any fever, chills, nausea, vomiting or diarrhea. the above as per cardiology At the time of this exam in the emergency room patient is awaiting a bed on the medical floor. He denies chest pain. He is not short of breath at present. He states with any exertion he has difficulty with breathing. He is hungry and would like some dinner. is at bedside. [facility] History Medical History: Reports:: Arrhythmia, Atrial Fibrillation, Cancer, Cardiomyopathy, Congestive Heart Failure, Coronary Artery Disease, Diabetes Mellitus Type 2, Gastroesophageal Reflux Disease(GERD), Hyperlipidemia, Hypertension, Internal Pacemaker, Myocardial Infarction, Palpitations, Peripheral Artery Disease Denies:: Diabetes Mellitus Type 1, MRSA, Seizures *Have you ever received a pneumonia vaccine?: Yes *Have you received a flu vaccine this season?: Yes Other Medical History: Reports: Anemia, Arthritis, Cataracts, Glaucoma. Denies: Blood Transfusion Reaction Laterality Cases: Bilateral: Cataract Other Surgeries: Yes: CABG, Cancer Surgery (LEFT NECK MASS RESECTION), Cardiac Catheterization, Cardiac Surgery, Colonoscopy, Coronary Stent, Pacemaker, Skin Cancer Excision (Melanoma), Other Amputation: No Fractures: No - *Social History Smoking Status: Never smoker Tobacco Type: smokeless tobacco # Packs/Day (cigarettes): 0 Alcohol Intake: current Alcohol Intake Frequency:: holidays/special occasions only Substance Use Type: denies use *Occupational Status:: retired Housing: house Household Members: spouse *Travel in the last 8 weeks: None Family Hx:: Cancer, Diabetes, Heart Attack, Hypertension, Hyperlipidemia Review of Systems - Constitutional Reports weight gain, Denies fever(s) - Eyes Denies change in vision - ENT Denies ear pain, Denies sore throat - *Cardiovascular Reports chest pain, Reports shortness of breath, Reports shortness of breath with activity, Reports irregular heart rhythm, Reports leg swelling - *Respiratory Reports cough, Reports shortness of breath, Denies excessive phlegm production, Denies coughing up blood - *Gastrointestinal Denies abdominal pain, Denies change in bowel habits, Denies loose stools, Denies vomiting blood, Denies bright, red blood in stools, Denies nausea, Denies vomiting - *Genitourinary Denies difficulty urinating - *Musculoskeletal Reports abnormal walking (Walks with a cane), Reports joint pain (Back) - *Neurologic Denies abnormal speech, Denies dizziness, Denies restless legs, Denies seizure-like activity Meds Home Medications Medication Instructions Recorded Confirmed Type atorvastatin 40 mg tablet 40 mg PO DAILY tab 04/24/18 05/09/22 History metformin 1,000 mg tablet 500 mg PO BID tab 07/07/20 05/09/22 History Calc/D3/Mag/Zn/[place]aja/[place] 1 tab PO DAILY 12/31/20 05/09/22 History [Calcium 600 mg Plus Vit D Tab] [place]-3S/Dha/Epa/Fish Oil [Fish 1 cap PO BID 12/31/20 05/09/22
--- NOTE | 2022-05-17 16:09 | PC.NURSE ---
pt given dietary tray; sitting up in bed with assistance from family
--- NOTE | 2022-05-17 16:56 | PC.NURSE ---
Rounded on pt at this time and updated pt and . Pt requested to sit up in w/c and have b/p cuff removed. PT up to w/c and removed b/p cuff no other needs at this time.
--- NOTE | 2022-05-17 17:26 | PC.NURSE ---
Called report to PAULA Calzada
--- NOTE | 2022-05-17 17:36 | PC.NURSE ---
pt arrived to the floor at this time
[2022-05-17 18:53] LABS: Troponin I 0.02 ng/ml (0.00-0.034)
[2022-05-17 19:02] LABS: Hemoglobin A1C 5.5 % (4.0-6.0)
[2022-05-17 19:12] LABS: Thyroid Stimulating Hormone 2.69 uIU/mL (0.465-4.68)
[2022-05-17 19:18] LABS: Basophils # 0.1 K/mm3 (0-0.2); Basophils % 1.5 % (0.1-2.0); Eosinophils # 0.2 K/mm3 (0.0-0.4); Eosinophils % 2.6 % (0.1-12.0); Hematocrit 31.5 % (42.0-52.0); Lymphocytes # 1.2 K/mm3 (0.7-4.5); Mean Corpuscular HGB Conc 28.5 g/dL (31.8-35.4); Mean Corpuscular Hemoglobin 24.9 pg (27.0-31.2); Mean Corpuscular Volume 87.3 fl (80-94); Mean Platelet Volume 9.2 fl (7.4-10.4); Monocytes # 0.7 K/mm3 (0.1-1.0); Monocytes % 8.5 % (1.7-9.3); Neutrophils # 5.6 K/mm3 (1.8-7.8); Neutrophils % 72.4 % (37.0-80.0); Platelet Count 247 K/mm3 (142-424); White Blood Count 7.7 K/mm3 (4.8-10.8)
[2022-05-17 19:19] LABS: Chloride 98 mmol/L (98-107); Potassium 3.8 mmoL/L (3.5-5.1); Sodium 138 mmol/L (136-145)
[2022-05-17 19:22] LABS: Anion Gap 7.8 mEq/L (5-15); Blood Urea Nitrogen 18 mg/dl (9-20); Carbon Dioxide 36 mmol/L (22.0-30.0); Creatinine Clearance Estimated 78 mL/min (50-200); Estimated Glomerular Filt Rate 93 ml/min (>60); GFR (African American) 112 ML/MIN (>60)
[2022-05-17 19:23] LABS: Calcium 8.3 mg/dl (8.4-10.2); Glucose 229 mg/dl (74-100)
[2022-05-18] VITALS: BP 104/35; PULSE 80; RESP 14; TEMP 36.6; O2SAT 90
[2022-05-18 04:00] VITALS: BP 131/60; PULSE 86; RESP 18; TEMP 36.4; O2SAT 92
--- NOTE | 2022-05-18 05:08 | PC.NURSE ---
Pt is alert and oriented. Refused to have his skin assessed. He had several skin cancer lesions noted to his right ear and right shoulder area. Pt refused to have dressing removed. Pt is in the room and decided to stay the night to assist with bathroom and needs. Pt stated that he does not sleep well at night. PT noted up and down all night. did not c/o pain in his chest this shift.
[2022-05-18 06:47] VITALS: PULSE 82
--- NOTE | 2022-05-18 06:51 | PC.NURSE ---
Pt came outside his room yelling and screaming at staff and his . Pt stated that he was leaving and going home. Pts stated that he has dementia and is confused. She stated that he hallucinates at night and he was doing that this morning. PT thought a grizzly walked into his room and went into the bathroom. Pt is yelling things like the Doctors only want to give you pills and take your money. I never agreed to go. I want to leave. Called Dr. Osborn he ordered oxepam 10 mg x 1 dose. Pt did agree to take the medication if he could take all his morning meds. Pt was given his morning meds and the medication. PT still stating that he wants to leave. is attempting to get patient to stay.
--- NOTE | 2022-05-18 10:46 | PC.NURSE ---
LATE ENTRY: Pt up in the padilla yelling at his and staff stating that he wanted to go home. He also stated that He was not a prisoner and never agreed to be here and we are just shoving pills down his throat and he is not going to have it anymore. Pt then would ramble on about jasbir and other things. Pt was speaking in complete sentences but was not making any sense with his words. Pt asked if he was hurting and he would say. Get this through your fat head I am my and you can not stop jasbir from being a pill pushing doctor that only wants money. Attempted to redirect patient and offered fluids, food, a calm environment, a soft bed etc. PT refused. He kept saying that he was leaving. Asked several times to wait until the DrRuby came to see him and he said that the DrRuby could see him at home because that is where he will be. Pts attempted to call his son to talk to him but Pt would not get on the phone. Notified Dr. joseph of the aggression and he ordered oxazepam 10mg. Pt agreed to take his morning medication. said to place the medication in with his morning meds to see if it will calm him down. Medication was not successful. stated Can we go now. I dont think he will stay. was elderly so a w./c was brought to patient. Pt was attempted to be placed on the elevator and he refused to get on the elevator. He stated You are not going to trick me to get on that box. Pt walked himself to the stairs and walked down them. He then got tired and asked for a w/c again at the bottom and was wheeled out to the car. Pt was placed in the car with his behind the wheel.
--- NOTE | 2022-05-19 11:51 | CARE MANAGER ---
Contacted patient's . She states patient seems to be more like himself today. he does still have some swelling. She has already made a follow up appointment with PCP as well. Denies questions or concerns. PAULA Hernandes
--- NOTE | 2022-05-19 16:50 | HMH.DCSUM ---
General - General Admission date:: 05/17/22 Discharge date: 05/18/22 HPI HPI: History of present illness: This is an 82-year-old white gentleman who presented to the emergency department with complaints of chest pain. The patient states that he had chest pain approximately 1 and half hours prior to arrival. He describes this as an excruciating left-sided pain that did not radiate. He states that it lasted for approximately 3 minutes. He states that it was associated with some shortness of breath and he states that he was sitting down when this occurred but had been moving his recliner to stand up. He states that he has noticed he has had some worsening shortness of breath with exertion as well as cough. He states that this is associated with bilateral lower extremity edema. He states that his edema has progressively worsened and his lower extremities are now weeping fluid. He states that he might have been shocked by his defibrillator, he is unsure, because of the excruciating sharp pain that he felt. He denies any fever, chills, nausea, vomiting or diarrhea. the above as per cardiology At the time of this exam in the emergency room patient is awaiting a bed on the medical floor. He denies chest pain. He is not short of breath at present. He states with any exertion he has difficulty with breathing. He is hungry and would like some dinner. is at bedside. Hospital Course Hospital Course: The patient was admitted and seen by cardiology. His AICD was interrogated and showed no events. He did have a nonsustained high rate on April 30. He was in 100% atrial fibrillation. They wanted serial troponins but had no plans for invasive left heart catheterization. They felt he had an acute on chronic exacerbation of heart failure and gave him 80 mg of Lasix IV every 8 hours. They felt after the IV Lasix, he could be changed to oral Lasix. He had a history of anemia and his hemoglobin was 8.9. He adamantly declined having colonoscopies or any work-up of his GI bleeding. Apparently the patient refused to have his skin assessed. His decided to stay the night to assist with bathroom and patient's needs due to his history of dementia. On the morning of 05/18/2022, he came outside of his room yelling and screaming at the staff and his . He stated he was going home. His stated he had dementia and was confused and hallucinates at night. He apparently thought a grizzly walked into his room and went into the bathroom. Dr. Osborn was called and ordered oxazepam 10 mg x 1 dose. The patient did agree to take the medication if he could take all of his morning meds. He was given all of his medications and still stated he wanted to leave. His attempted to get him to stay. Nursing also tried to convince him to wait until Dr. Osborn could see him. The patient still was adamant about leaving and signed out AMA. Objective Vital signs: Temp Pulse Resp BP Pulse Ox 97.6 F 82 18 131/60 92 L 05/18/22 04:00 05/18/22 06:47 05/18/22 04:00 05/18/22 04:00 05/18/22 04:00 Narrative: - Constitutional no acute distress Comments: Sitting up on the stretcher in the emergency room and appears comfortable. No dyspnea with talking. - *Routine HEENT Exam Head: Present: normocephalic, atraumatic Eye: Present: PERRL. Absent: conjunctival icterus, scleral injection, conjunctivae pink ENT: Present: mucous membranes moist - *Routine Neck Exam Present: supple. Absent: carotid bruit, lymphadenopathy, thyromegaly - *Routine Respiratory Exam Present: diminished air movement (Posteriorly greater on the right) - *Routine Cardiovascular Exam Present: irregularly irregular (Monitor showing atrial fibrillation with rate in the 70s with occasional paced beat) - *Routine Abdominal Exam Present: normoactive bowel sounds, obese. Absent: tenderness - *Routine Rectal Exam Rectal:: deferred - *Routine Genitalia Exam Ge
== END 2022-05-18 07:03 | disposition left against medical advice (07) ==
LOC: ER 12:17 → 2ND 14:37
PROVIDERS: Admitting Provider Family Medicine; Emergency Provider Student in an Organized Health Care Education/Training Program; PCP Family Medicine; Visit Provider Family Medicine
DX: I50.23 Acute on chronic systolic (congestive) heart failure (principal); Z79.899 Other long term (current) drug therapy; E11.9 Type 2 diabetes mellitus without complications; Z79.4 Long term (current) use of insulin; I11.0 Hypertensive heart disease with heart failure; I48.91 Unspecified atrial fibrillation; R07.9 Chest pain, unspecified; I25.5 Ischemic cardiomyopathy; Z20.822 Contact with and (suspected) exposure to COVID-19
CPT/HCPCS: G0378; 36415; 71045; 80048; 80053; 82803; 83036; 83880; 84443; 84484; 85025; 86850; 93005; 99285; C9803; U0003; U0005